=== PATIENT | female | born 1945 | race African-American/Black ===

== ENCOUNTER 2019-07-21 07:25 | Outpatient (RCR) | payer MEDICARE, MEDICAID, SELFPAY ==
--- NOTE | 2019-06-27 10:00 | P.PNWOUND_ITS ---
Wound Care Note Date/Time: 06/17/19 12:30 History: Patient presents from home for wound check. She had a wound vac placed during last hospitalization 1 month ago. Has been undergoing wound vac changes 3 times weekly. Wound history: 05/09/19--Sharp excisional debridement of sacral ulcer measuring 10cm x 6cm and right ischial ulcer measuring 5.5cm x 7cm Wound approximation: No Wound width: Sacrum--9.8cm Ischium--7.5cm Wound length: Sacrum--5.5cm Ischium--5.5cm Wound depth: Sacrum--0.5cm Ischium--1.3cm Drainage: minimal serous Surrounding tissue appearance: healthy Tunneling: none Percentage granulation tissue: 100% Dressings: Wound Vac Assessment and Plan Assessment and plan (1) Decubitus skin ulcer: Qualifiers: Pressure injury location: sacral region Pressure injury stage: stage 4 Qualified Code(s): L89.154 - Pressure ulcer of sacral region, stage 4 Code(s): L89.90 - Pressure ulcer of unspecified site, unspecified stage Status: Acute Assessment and Plan: * Will continue wound vac changes 3 times weekly. This is working well with protecting wounds from fecal or urine contamination. Patient still has very little muscle and these wounds will be very prone to breakdown. Optimizing nutrition and minimizing pressure to susceptible areas will continue to be very important. Will see patient back in 1-2 months (2) Osteomyelitis: Qualifiers: Osteomyelitis location: multiple sites Osteomyelitis type: unspecified type Qualified Code(s): M86.9 - Osteomyelitis, unspecified Code(s): M86.9 - Osteomyelitis, unspecified Status: Acute (3) Dementia, unspecified, with behavioral disturbance: Code(s): F03.91 - Unspecified dementia with behavioral disturbance Status: Acute (4) Multiple sclerosis: Code(s): G35 - Multiple sclerosis Status: Acute
--- NOTE | 2019-08-02 14:41 | WPDWOUNDNOTE ---
Wound Care Note Date/Time: 07/21/19 History: Patient presents from home for wound check. She had a wound vac placed during last hospitalization 2 months ago. Has been undergoing wound vac changes 3 times weekly. Minimal black sponge able to be fit over wounds at this point. Occasional soilage of dressings from stool due to close proximity to anus. Wound history: Wound history: 05/09/19--Sharp excisional debridement of sacral ulcer measuring 10cm x 6cm and right ischial ulcer measuring 5.5cm x 7cm Wound approximation: No Wound width: Sacrum--6cm Ischium--5cm Wound length: Sacrum--9cm Ischium--4.5cm Wound depth: Sacrum--0.2cm Ischium--0.2cm Drainage: Serosanguinous Surrounding tissue appearance: healthy Percentage granulation tissue: 100% Dressings: Silver Gel and Mepilex Assessment and Plan Assessment and plan (1) Decubitus skin ulcer: Qualifiers: Pressure injury location: sacral region Pressure injury stage: stage 4 Qualified Code(s): L89.154 - Pressure ulcer of sacral region, stage 4 Code(s): L89.90 - Pressure ulcer of unspecified site, unspecified stage Status: Acute Assessment and Plan: No longer need to place wound vac due to how shallow wounds have now become. Ordered Silver gel and Mepilex dressings daily. Will follow up with patient in 1 month in wound clinic. (2) Osteomyelitis: Qualifiers: Osteomyelitis location: multiple sites Osteomyelitis type: unspecified type Qualified Code(s): M86.9 - Osteomyelitis, unspecified Code(s): M86.9 - Osteomyelitis, unspecified Status: Acute Review of Systems Review of Systems: All systems reviewed & are unremarkable except as noted in HPI and below Exam Skin: Other: See wound measurements. Wounds are healing with good granulation tissue and no signs of infection.
== END 2019-09-15 23:59 | disposition home or self-care (01) ==
LOC: ANHWOC 07:25
PROVIDERS: PCP Internal Medicine; Visit Provider Surgery
DX: L89.159 Pressure ulcer of sacral region, unspecified stage (principal); L89.319 Pressure ulcer of right buttock, unspecified stage
CPT/HCPCS: 97606; 99213; G0463

== ENCOUNTER 2019-07-21 13:29 | Outpatient (CLI) | payer MEDICARE, MEDICAID, SELFPAY ==
[2019-07-21 13:59] LABS: Basophils Absolute Auto 0.1 K/mm3 (0.0-0.1); Basophils Percent Auto 0.8 % (0.2-1.2); Eosinophils Absolute Auto 0.3 K/mm3 (0-0.3); Eosinophils Percent Auto 3.2 % (0-4.4); Hematocrit 32.9 % (37.0-47.0); Hemoglobin 9.6 g/dL (12.0-15.0); Immature Granulocyte Absolute 0.02 K/mm3 (0.00-0.031); Immature Granulocyte Percent A 0.3 % (0-0.5); Lymphocytes Absolute Auto 1.53 K/mm3 (0.9-3.2); Lymphocytes Percent Auto 19.9 % (18.3-44.2); Mean Corpuscular HGB Conc 29.2 g/dl (32-36); Mean Corpuscular Hemoglobin 26.1 pg (26-34); Mean Corpuscular Volume 89.4 fl (80-100); Mean Platelet Volume 8.7 fl (7.4-10.4); Monocytes Absolute Auto 0.4 K/mm3 (0.1-0.6); Monocytes Percent Auto 4.7 % (2.6-8.5); Neutrophils Absolute Auto 5.5 K/mm3 (1.3-6.7); Neutrophils Percent Auto 71.1 % (45.5-73.1); Platelet Count Result 631 k/mm3 (150-375); Red Blood Count 3.68 M/mm3 (4.2-5.4); White Blood Count 7.7 K/mm3 (4.5-10.0)
[2019-07-21 14:16] LABS: Alanine Aminotransferase 10 U/L (4-35); Albumin Level 3.2 g/dL (3.5-5.1); Alkaline Phosphatase 135 U/L (38-126); Aspartate Amino Transferase 18 U/L (14-36); Bilirubin,Total 0.3 mg/dL (0.2-1.3); Blood Urea Nitrogen 13 mg/dL (7-17); Calcium 9.1 mg/dL (8.4-10.2); Carbon Dioxide 26 mmol/L (22-30); Chloride 110 mmol/L (98-107); Estimated Glomerular Filt Rate > 60; Glucose 136 mg/dL (65-105); Potassium 3.9 mmol/L (3.4-5.0); Sodium 148 mmol/L (137-145)
[2019-07-21 15:57] LABS: Iron 54 ug/dL (37-170)
[2019-07-21 16:07] LABS: Percent Iron Saturation 22 % (20-50)
== END 2019-07-21 13:30 | disposition home or self-care (01) ==
LOC: ANHLAB 13:36
PROVIDERS: PCP Internal Medicine; Visit Provider Internal Medicine
DX: D64.9 Anemia, unspecified (principal); E86.0 Dehydration; I10 Essential (primary) hypertension
CPT/HCPCS: 36415; 80053; 83540; 83550; 85025; 99213; G0463

== ENCOUNTER 2020-04-13 11:14 | Outpatient (NON) | payer MEDICARE, MEDICAID, SELFPAY ==
[2020-04-13 11:49] LABS: Hemoglobin 9.7 g/dL (12.0-15.0); Mean Corpuscular HGB Conc 28.5 g/dl (32-36); Mean Corpuscular Volume 101.5 fl (80-100); Mean Platelet Volume 11.3 fl (7.4-10.4); Platelet Count Result 418 k/mm3 (150-375); Red Blood Count 3.35 M/mm3 (4.2-5.4); Red Cell Distribution Width 18.2 % (11.5-14.5); White Blood Count 9.9 K/mm3 (4.5-10.0)
[2020-04-13 11:52] LABS: Alanine Aminotransferase 15 U/L (4-35); Albumin Level 3.1 g/dL (3.5-5.1); Alkaline Phosphatase 89 U/L (38-126); Anion Gap 7 mmol/L (8-16); Aspartate Amino Transferase 14 U/L (14-36); Bilirubin,Total 0.3 mg/dL (0.2-1.3); Blood Urea Nitrogen 37 mg/dL (7-17); Calcium 8.5 mg/dL (8.4-10.2); Carbon Dioxide 27 mmol/L (22-30); Chloride 144 mmol/L (98-107); Estimated Glomerular Filt Rate > 60; Glucose 116 mg/dL (65-105); Potassium 3.5 mmol/L (3.4-5.0); Sodium 178 mmol/L (137-145)
== END 2020-04-13 11:15 ==
PROVIDERS: PCP Internal Medicine; Visit Provider Internal Medicine
DX: L89.154 Pressure ulcer of sacral region, stage 4 (principal); L89.214 Pressure ulcer of right hip, stage 4; M46.28 Osteomyelitis of vertebra, sacral and sacrococcygeal region; Z46.6 Encounter for fitting and adjustment of urinary device
CPT/HCPCS: 80053; 85027

== ENCOUNTER 2020-04-13 13:37 | Inpatient (IN) | payer MEDICARE, MEDICAID, SELFPAY ==
[2020-04-13] VITALS (13 sets, daily range): BP systolic 86–106; BP diastolic 60–76; PULSE 62–90; RESP 10–24; TEMP 35.7–36.6; O2SAT 98–100; BMI 14.0
--- NOTE | 2020-04-13 14:10 | PC.NURSE ---
LYON CATH IN PLACE AT TIME OF ARRIVAL.
--- NOTE | 2020-04-13 14:20 | ED.GENADULT ---
HPI - General Adult General Chief complaint: Recheck/Abnormal Lab/Rx Stated complaint: ABN LABS Time Seen by Provider: 04/13/20 13:45 Source: patient and old records reviewed Mode of arrival: EMS Limitations: no limitations and clinical condition History of Present Illness HPI narrative: Patient is a 74-year-old female who presents per EMS for evaluation of possible electrolyte abnormality patient on arrival is in the room in no distress is a limited historian with what seems like chronic dementia patient is oriented to self has no complaints Related Data Home Medications Medication Instructions Recorded Confirmed melatonin 3 mg PO HS 04/12/19 03/30/20 Allergies Allergy/AdvReac Type Severity Reaction Status Date / Time No Known Allergies Allergy Verified 12/29/19 11:11 Review of Systems Review of Systems: ROS unobtainable: Yes unobtainable due to medical condition [facility] Past Medical History Medical History (Updated 04/13/20 @ 16:12 by Franco Bailon PA-C) Constipation Dementia History of DVT (deep vein thrombosis) In August 2013, treated with Xarelto. Lumbago Multiple sclerosis Neurogenic bladder Pulmonary nodule 1.9 centimeter left lower lobe lung mass noted on imaging in January 2014. Subsequent chest CT failed to demonstrate a nodule. Spinal stenosis Surgical History Surgical History History of hysterectomy Tubal ligation status Family History Family History Daughter Hypertension Other Unknown family medical history Social History Social History Social History: The patient lives in [place] with her daughter. Her daughter, Fior Kaye, is her surrogate decision maker. The patient is listed as a full code. Her primary care provider is Dr. Tray Carlton. She denies alcohol, tobacco, and drug use. Smoking status: Never smoker Alcohol intake: never Substance use: never Substance use type: does not use Gender identity (if verbalized by the patient): Female Spiritual care concerns: No Agree to blood products: Yes Exam Narrative: Exam Narrative: GENERAL: Chronically ill-appearing, thin, and in no acute distress. HEAD: Normocephalic, atraumatic. EYES: PERRLA and EOMI. ENT: Nares clear, no rhinorrhea or epistaxis. Mucous membranes moist. NECK: Supple. No adenopathy or masses. CHEST: Clear to auscultation. No respiratory distress. No wheezes rales or rhonchi HEART: Regular rate and rhythm. No murmur heard. Normal peripheral pulses. ABDOMEN: Soft, nontender, nondistended EXTREMITIES: Normal range of motion. No edema. SKIN: Warm, dry, no rash. NEURO: No focal deficits. Alert and oriented to self PSYCH: Normal mood and affect. Course Course Emergency Course: Patient found to have hypernatremia secondary to dehydration most likely will be brought into the hospital for correction of this electrolyte abnormality patient hemodynamically stable at this time in the room in no distress resting comfortably Consultations Consultation #1: Spoke with hospitalist who is agreed to accept the patient Date: 04/13/20 Time: 16:12 Vital Signs Vital signs: Vital Signs Temperature 97.6 F 04/13/20 13:36 Pulse Rate 90 04/13/20 13:36 Respiratory Rate 16 04/13/20 13:36 Blood Pressure 99/69 L 04/13/20 13:36 Pulse Oximetry 100 04/13/20 13:36 Temperature 97.6 F 04/13/20 13:36 Pulse Rate 67 04/13/20 15:46 Respiratory Rate 11 L 04/13/20 15:46 Blood Pressure 94/71 L 04/13/20 15:46 Pulse Oximetry 99 04/13/20 15:08 Medical Decision Making [facility] Narrative Medical decision making narrative: Patient with electrolyte abnormality in the room in no distress hydration has began patient will be placed on med telemetry floor brought into the hospital felt appropriate for patient therapy Vit
[2020-04-13 14:22] LABS: Basophils Absolute Auto 0.1 K/mm3 (0.0-0.1); Basophils Percent Auto 0.7 % (0.2-1.2); Eosinophils Absolute Auto 0.2 K/mm3 (0-0.3); Eosinophils Percent Auto 2.1 % (0-4.4); Hemoglobin 10.3 g/dL (12.0-15.0); Immature Granulocyte Absolute 0.03 K/mm3 (0.00-0.031); Immature Granulocyte Percent A 0.3 % (0-0.5); Lymphocytes Absolute Auto 1.67 K/mm3 (0.9-3.2); Lymphocytes Percent Auto 17.7 % (18.3-44.2); Mean Corpuscular HGB Conc 28.6 g/dl (32-36); Mean Corpuscular Hemoglobin 29.2 pg (26-34); Mean Platelet Volume 11.5 fl (7.4-10.4); Monocytes Absolute Auto 0.4 K/mm3 (0.1-0.6); Monocytes Percent Auto 4.1 % (2.6-8.5); Neutrophils Absolute Auto 7.1 K/mm3 (1.3-6.7); Neutrophils Percent Auto 75.1 % (45.5-73.1); Nucleated Red Blood Cells Perc 0.2 % (0.0-0.2); Platelet Count Result 410 k/mm3 (150-375); Red Blood Count 3.53 M/mm3 (4.2-5.4); Red Cell Distribution Width 18.2 % (11.5-14.5); White Blood Count 9.5 K/mm3 (4.5-10.0)
[2020-04-13 14:25] LABS: Add Urine Microscopic? YES; Appearance Urine Turbid (Clear); Bilirubin Urine Negative (Negative); Blood Urine Negative (Negative); Color Urine Yellow (Yellow); Glucose Urine UA Negative (Negative); Ketones Urine Trace mg/dL (Negative); Leukocyte Esterase Ur 1+ LEU/UL (Negative); Nitrate Urine Negative (Negative); Protein Urine 3+ mg/dL (Negative); RBC Urine 0-2 /hpf (0-2); Specific Grav Ur 1.027 (1.001-1.035); Urobilinogen Urine Negative mg/dL (<2.0); WBC Urine 0-3 /hpf
[2020-04-13 14:36] LABS: Magnesium 3.7 mg/dL (1.6-2.3); Phosphorus 4.1 mg/dL (2.5-4.5)
--- NOTE | 2020-04-13 14:45 | ECG_ITS ---
Measurements Intervals [place] Rate: 86 P: 57 VA: 115 QRS: 15 QRSD: 76 T: 34 QT: 374 QTc: 448 Interpretive Statements SINUS RHYTHM WITH SHORT VA INTERVAL NONSPECIFIC ST & T-WAVE ABNORMALITY- ANTEROLAT/INF LEADS BORDERLINE ECG Electronically Signed On 04-13-2020 15:49:22 FRIT [employer]ATER by Danny Roa D.O.
[2020-04-13 14:49] LABS: Alanine Aminotransferase 16 U/L (4-35); Albumin Level 3.3 g/dL (3.5-5.1); Alkaline Phosphatase 86 U/L (38-126); Anion Gap 5 mmol/L (8-16); Aspartate Amino Transferase 20 U/L (14-36); Bilirubin,Total 0.4 mg/dL (0.2-1.3); Blood Urea Nitrogen 40 mg/dL (7-17); Calcium 8.8 mg/dL (8.4-10.2); Carbon Dioxide 25 mmol/L (22-30); Chloride 145 mmol/L (98-107); Estimated CRCL calculation 37 ml/min; Estimated Glomerular Filt Rate > 60; Glucose 112 mg/dL (65-105); Potassium 4.1 mmol/L (3.4-5.0); Sodium 175 mmol/L (137-145)
--- NOTE | 2020-04-13 15:23 | PC.NURSE ---
SPOKE WITH RADHA BORGES ABOUT SWITCHING FLUIDS TO HALF NORMAL SALINE DUE TO PT CRITICAL SODIUM LEVEL, RADHA BORGES STATES THAT HE STILL WANTS THE NORMAL SALINE 500MG BOLUS ADMIN AND IF THE HOSPITALIST WANTS IT SWITCHED THEY CAN DO IT LATER.
[2020-04-13] MEDS: SODIUM CHLORIDE 0.9% IV 500 ML 999 ML IV CONT (15:24)
--- NOTE | 2020-04-13 16:46 | PC.NURSE ---
SPOKE WITH PHARMACY ABOUT SALINE DRIP, JACKIE STATES HE WILL TUBE IT UP.
[2020-04-13] MEDS: DEXTROSE 5%/0.45% SOD CHL 1,000 ML 100 ML IV CONT (16:56)
--- NOTE | 2020-04-13 18:17 | ADMGEN ---
This patient, Jessica Ann, was admitted to Medical Room 342-01. Patient/family oriented to hospital policies and general routines including ID bracelet, bed and alarms, visiting hours, pain management, procedures, bathroom and other care routines, personal items, smoking policy, room service/diet, and visiting hours. Information on how to activate the Rapid Response Team has been discussed. Patient/Family are encouraged to report perceived risks to care and to ask questions if they do not understand what they are told or what they should do.
[2020-04-13] MEDS: FAMOTIDINE 20 MG/2 ML VIAL IV PUSH (20:41)
--- NOTE | 2020-04-13 21:47 | PM.IMHP ---
H&P: HPI History of Present Illness Date/Time: 04/13/20 21:47 Chief complaint: hypernatremia/dehydration Narrative: Jessica Ann is a 74 year old female who lives at home with her daughter and has home health. The patient was brought into the emergency room via EMS for possibility of electrolyte abnormalities. The patient has appearance of chronic dementia and is orientated to herself. No complaints at this time. Patient's sodium level was 178 and then redrawn after his IV bolus and it was 175. The patient appears to be dry and dehydrated. Her glucose is 112 and creatinine was normal. Patient was just given 1 bag of IV fluids. And then changed to D5 half normal saline. Patient was admitted to inpatient date of service 04/13/2020 Review of Systems Review of Systems: ROS unobtainable: Yes unobtainable due to mental status Constitutional: Constitutional: Reports as per HPI and Reports no additional constitutional complaints Eyes: Eyes: Reports as per HPI and Reports no additional eye complaints ENT: Reports system reviewed and no additional complaints, except as documented and Reports Normal hearing present Cardiovascular: Cardiovascular: Reports no additional cardiovascular complaints Respiratory: Respiratory: Reports no additional respiratory complaints and Reports no additional respiratory complaints Gastrointestinal: Gastrointestinal: Reports as per HPI and Reports no additional gastrointestinal complaints Musculoskeletal: Musculoskeletal: Reports no additional musculoskeletal complaints Integumentary/Breasts: Skin/Breast: Reports system reviewed and no additional complaints, except as docu and Reports as per HPI Neurologic: Reports system reviewed and no additional complaints, except as documented, Reports as per HPI and Reports Normal hearing present Psychiatric: Psychiatric: Reports no additional psychiatric complaints and Reports as per HPI Endocrine: Endocrine: Reports no additional endocrine complaints Hematologic/Lymphatic: Hematologic/Lymphatic: Reports no additional hematologic/lymphatic complaints Allergic/Immunologic: Allergic/Immunologic: Reports no additional allergic/immunologic complaints [facility] Past Medical History Medical History Constipation Dementia History of DVT (deep vein thrombosis) In August 2013, treated with Xarelto. Lumbago Multiple sclerosis Neurogenic bladder Pulmonary nodule 1.9 centimeter left lower lobe lung mass noted on imaging in January 2014. Subsequent chest CT failed to demonstrate a nodule. Spinal stenosis Surgical History Surgical History History of hysterectomy Tubal ligation status Family History Family History Daughter Hypertension Social History Social History Social History: The patient lives in [place] with her daughter. Her daughter, Fior Kaye, is her surrogate decision maker. The patient is listed as a full code. Her primary care provider is Dr. Tray Carlton. She denies alcohol, tobacco, and drug use. Smoking status: Never smoker Alcohol intake: never Substance use: never Substance use type: does not use Gender identity (if verbalized by the patient): Female Spiritual care concerns: No Agree to blood products: Yes Meds Home Medications and Allergies Home Medications Medication Instructions Recorded Confirmed Type melatonin 5 mg PO HS 04/12/19 04/13/20 History mirtazapine 15 mg PO HS 04/13/20 04/13/20 History polyethylene glycol 3350 [Miralax] 17 g PO PRN PRN 04/13/20 04/13/20 History Allergies Allergy/AdvReac Type Severity Reaction Status Date / Time No Known Allergies Allergy Verified 04/13/20 18:42 Vital Signs Vital Signs - 24 hr 04/13/20 13:36 04/13/20 14:20 04/13/20 15:0
[2020-04-13 23:55] LABS: Potassium Urine Random 34.7 meq/L
[2020-04-14] VITALS (11 sets, daily range): BP systolic 82–105; BP diastolic 56–60; PULSE 68–109; RESP 14–16; TEMP 36.3–36.6; O2SAT 100
[2020-04-14 00:20] LABS: Sodium Urine Random 63 meq/L
[2020-04-14] MEDS: MIRTAZAPINE 15 MG TABLET PO ×2 (00:23→20:50)
[2020-04-14] MEDS: MELATONIN 5 MG TABLET PO ×2 (00:23→20:50)
[2020-04-14 01:28] LABS: Anion Gap 7 mmol/L (8-16); Blood Urea Nitrogen 35 mg/dL (7-17); Carbon Dioxide 24 mmol/L (22-30); Chloride 138 mmol/L (98-107); Estimated CRCL calculation 39 ml/min; Estimated Glomerular Filt Rate > 60; Glucose 254 mg/dL (65-105); Potassium 3.1 mmol/L (3.4-5.0); Sodium 169 mmol/L (137-145)
[2020-04-14] MEDS: DEXTROSE 5%/0.45% SOD CHL 1,000 ML 100 ML IV CONT (03:10)
[2020-04-14 06:50] LABS: Basophils Absolute Auto 0.1 K/mm3 (0.0-0.1); Basophils Percent Auto 0.7 % (0.2-1.2); Eosinophils Absolute Auto 0.3 K/mm3 (0-0.3); Eosinophils Percent Auto 3.2 % (0-4.4); Hemoglobin 9.5 g/dL (12.0-15.0); Immature Granulocyte Absolute 0.03 K/mm3 (0.00-0.031); Immature Granulocyte Percent A 0.4 % (0-0.5); Lymphocytes Absolute Auto 1.48 K/mm3 (0.9-3.2); Lymphocytes Percent Auto 18.5 % (18.3-44.2); Mean Corpuscular HGB Conc 27.9 g/dl (32-36); Mean Corpuscular Volume 103.7 fl (80-100); Mean Platelet Volume 11.4 fl (7.4-10.4); Monocytes Absolute Auto 0.3 K/mm3 (0.1-0.6); Monocytes Percent Auto 4.1 % (2.6-8.5); Neutrophils Absolute Auto 5.9 K/mm3 (1.3-6.7); Neutrophils Percent Auto 73.1 % (45.5-73.1); Nucleated Red Blood Cells Perc 0.4 % (0.0-0.2); Platelet Count Result 351 k/mm3 (150-375); Red Blood Count 3.28 M/mm3 (4.2-5.4); Red Cell Distribution Width 17.8 % (11.5-14.5)
[2020-04-14 07:16] LABS: Anion Gap 7 mmol/L (8-16); Blood Urea Nitrogen 32 mg/dL (7-17); Carbon Dioxide 22 mmol/L (22-30); Chloride 138 mmol/L (98-107); Estimated CRCL calculation 39 ml/min; Estimated Glomerular Filt Rate > 60; Glucose 110 mg/dL (65-105); Potassium 3.2 mmol/L (3.4-5.0); Sodium 167 mmol/L (137-145)
[2020-04-14] MEDS: FAMOTIDINE 20 MG/2 ML VIAL IV PUSH ×2 (08:18→20:50)
[2020-04-14 08:49] LABS: Anisocytosis 1+ (NORMAL); Hypochromasia 1+ (NORMAL); Platelet Estimate Adequate (Adequate)
[2020-04-14 10:11] LABS: Sodium 161 mmol/L (137-145)
[2020-04-14] MEDS: SODIUM CHLORIDE 0.9% IV 1,000 ML 70 ML IV CONT (11:01)
--- NOTE | 2020-04-14 12:00 | PCSTNOTE ---
Please refer to the Bedside Swallow Evaluation in the EMR. Please note, silent aspiration cannot be ruled out at bedside.
--- NOTE | 2020-04-14 13:03 | PM.IMPN ---
Progress Note: A&P Assessment and Plan (1) Hypernatremia: Code(s): E87.0 - Hyperosmolality and hypernatremia Status: Acute Assessment and Plan: Sodium at presentation was significantly elevated at 175. Suspect this is secondary to acute dehydration as patient appeared very dry upon presentation. She was given a 1 L fluid bolus of normal saline in the ED. She was then switched to D5 0.45 normal saline and sodium declined to 167. Sodium is declining at slightly accelerated rate but at this time, will not reverse to increase sodium. Transition to normal saline at 70 ml/hr Monitor sodium q4h to ensure appropriate rate of correction Consider nephrology consultation based on sodium results following adjustment of fluids Urine osmolality is pending (2) Severe protein-calorie malnutrition: Code(s): E43 - Unspecified severe protein-calorie malnutrition Status: Acute Assessment and Plan: Patient is thin and frail. BMI is 14. Nursing staff noted that patient was coughing with foods and liquids. Bedside swallow study performed today with recommendation to continue thin liquids and minced and moist diet. She likely has poor oral intake secondary to her dementia. Continue with minced and moist diet Dietary supplements Continue mirtazapine (3) Dehydration: Code(s): E86.0 - Dehydration Status: Acute Assessment and Plan: Secondary to poor oral intake as above, resulting in hypernatremia. Continue with gentle IV fluid hydration as above, monitoring sodium closely. (4) Decubitus ulcer: Qualifiers: Pressure injury location: buttock Pressure injury stage: unspecified pressure injury stage Laterality: unspecified laterality Qualified Code(s): L89.309 - Pressure ulcer of unspecified buttock, unspecified stage Code(s): L89.90 - Pressure ulcer of unspecified site, unspecified stage Status: Acute Assessment and Plan: Patient is bed-bound/wheelchair bound with poor nutrition. Wound care consult is appreciated (5) Dementia, unspecified, with behavioral disturbance: Code(s): F03.91 - Unspecified dementia with behavioral disturbance Status: Acute Assessment and Plan: Patient is oriented to self only. Appears to be at her baseline. She is pleasantly confused. (6) Multiple sclerosis: Code(s): G35 - Multiple sclerosis Status: Acute Assessment and Plan: With associated neurogenic bladder and chronic indwelling hatfield catheter. She is not on any medications for MS. Subjective Date/time seen: 04/14/20 13:03 Interval history: Date of service: 04/14/2020 Jessica Ann is a 74 year old female with a history of dementia and multiple sclerosis who is seen in follow up for hyponatremia. She is feeling well today. She has no complaints at this time. Her daughter is with her at the bedside. Her appetite has been good. She has been sleeping well. She has a chronic indwelling Hatfield and has no issues. She denies shortness of breath, cough, nausea, vomiting, or abdominal pain. No muscle cramps or body aches. She has no additional concerns. Review of Systems Review of Systems: Narrative: Limited ROS due to patient's dementia with pertinent positives and negatives as per HPI. Exam Narrative: Exam Narrative: Ms. Ann is a thin, frail 74-year-old female who is lying supine in bed. She appears comfortable and is in NARD. HR 69, BP 105/60, RR 14, T 97.4?, 100% on room air Neuro: awake, alert and oriented x1 (states name and , unable to state location, year, or details of hospitalization), speech slightly garbled, no focal neuro deficits noted HEENMT: normocephalic, atraumatic, EOMI, sclerae anicteric, moist oral mucosa, tongue midline and protruding, nares patent Neck: supple, no lymphadenopathy Respiratory: clear to auscultation bilaterally, nonlabored breathing Cardio: regular rate, r
[2020-04-14] MEDS: POTASSIUM CHLORIDE 20 MEQ PACKET (FOR LIQUID) PO (17:36)
[2020-04-14 17:47] LABS: Sodium 158 mmol/L (137-145)
[2020-04-15] VITALS (9 sets, daily range): BP systolic 90–100; BP diastolic 52–70; PULSE 61–87; RESP 12–16; TEMP 36.2–36.9; O2SAT 100
[2020-04-15] MEDS: SODIUM CHLORIDE 0.9% IV 1,000 ML 70 ML IV CONT (01:38)
[2020-04-15 06:17] LABS: Hemoglobin 7.4 g/dL (12.0-15.0); Mean Corpuscular HGB Conc 29.6 g/dl (32-36); Mean Corpuscular Hemoglobin 28.8 pg (26-34); Mean Corpuscular Volume 97.3 fl (80-100); Mean Platelet Volume 11.5 fl (7.4-10.4); Platelet Count Result 309 k/mm3 (150-375); Red Blood Count 2.57 M/mm3 (4.2-5.4); Red Cell Distribution Width 16.9 % (11.5-14.5); White Blood Count 6.9 K/mm3 (4.5-10.0)
[2020-04-15 06:32] LABS: Anion Gap 5 mmol/L (8-16); Blood Urea Nitrogen 24 mg/dL (7-17); Calcium 7.7 mg/dL (8.4-10.2); Carbon Dioxide 23 mmol/L (22-30); Chloride 130 mmol/L (98-107); Estimated CRCL calculation 39 ml/min; Estimated Glomerular Filt Rate > 60; Glucose 96 mg/dL (65-105); Potassium 3.2 mmol/L (3.4-5.0); Sodium 158 mmol/L (137-145)
[2020-04-15] MEDS: SODIUM CHLORIDE 0.45% 1,000 ML 70 ML IV CONT ×2 (08:11→22:37)
[2020-04-15] MEDS: FAMOTIDINE 20 MG/2 ML VIAL IV PUSH ×2 (08:13→20:25)
[2020-04-15 09:42] LABS: Iron 34 ug/dL (37-170)
[2020-04-15 09:51] LABS: Percent Iron Saturation 15 % (20-50)
--- NOTE | 2020-04-15 10:32 | PM.IMPN ---
Progress Note: A&P Assessment and Plan (1) Hypernatremia: Code(s): E87.0 - Hyperosmolality and hypernatremia Status: Acute Assessment and Plan: Sodium at presentation was significantly elevated at 175. Suspect this is secondary to acute dehydration as patient appeared very dry upon presentation. She was given a 1 L fluid bolus of normal saline in the ED. She was then switched to D5 0.45 normal saline and sodium declined to 167. Given slightly accelerated rate of decline, she was transitioned back to normal saline. Sodium this morning has remained stable at 158. Transition to 0.45 normal saline at 70 ml/hr Monitor sodium closely to ensure appropriate rate of correction. Urine osmolality is pending (2) Dehydration: Code(s): E86.0 - Dehydration Status: Acute Assessment and Plan: Secondary to poor oral intake, resulting in hypernatremia. Continue with gentle IV fluid hydration as above, monitoring sodium closely. (3) Hypokalemia: Code(s): E87.6 - Hypokalemia Status: Acute Assessment and Plan: Potassium mildly low at 3.2, likely secondary to poor oral intake as noted above. Supplement with liquid KCl. Continue to monitor potassium closely and replace as needed. (4) Dementia, unspecified, with behavioral disturbance: Code(s): F03.91 - Unspecified dementia with behavioral disturbance Status: Acute Assessment and Plan: Patient is oriented to self only. Appears to be at her baseline. She is pleasantly confused. (5) Multiple sclerosis: Code(s): G35 - Multiple sclerosis Status: Acute Assessment and Plan: With associated neurogenic bladder and chronic indwelling hatfield catheter. She is not on any medications for MS. (6) Anemia: Qualifiers: Anemia type: unspecified type Qualified Code(s): D64.9 - Anemia, unspecified Code(s): D64.9 - Anemia, unspecified Status: Acute Assessment and Plan: Hgb declined from 9.5 yesterday to 7.4 today. On review of prior records, anemia appears chronic. Suspect initial H&H labs were hemoconcentrated secondary to severe dehydration and decline in H&H is dilutional. No evidence of active bleeding and VSS. Monitor H&H closely. Transfuse as needed with Hgb threshold <7.0 Check IFOB, iron panel, B12, and folate (7) At risk for aspiration: Code(s): Z91.89 - Other specified personal risk factors, not elsewhere classified Status: Acute Assessment and Plan: Nursing staff noted that patient was coughing with foods and liquids. Bedside swallow study performed 04/14 with recommendation to continue thin liquids and minced and moist diet. She did not demonstrate any evidence of aspiration and has no history of aspiration pneumonia. Patient's daughter was unhappy with minced and moist diet as she felt her mother was being made to eat baby food. Continue minced and moist diet with thin liquids. May add in soft and bite sized with appropriate supervision and cutting of food to appropriate size per family wishes. Aspiration precautions in place Assistance with meals (8) Severe protein-calorie malnutrition: Code(s): E43 - Unspecified severe protein-calorie malnutrition Status: Acute Assessment and Plan: Patient is thin and frail. BMI is 14. She likely has poor oral intake secondary to her dementia. Dietary supplements Continue mirtazapine Encourage PO intake (9) Decubitus ulcer: Qualifiers: Pressure injury location: buttock Pressure injury stage: unspecified pressure injury stage Laterality: unspecified laterality Qualified Code(s): L89.309 - Pressure ulcer of unspecified buttock, unspecified stage Code(s): L89.90 - Pressure ulcer of unspecified site, unspecified stage Status: Acute Assessment and Plan: Patient is bed-bound/wheelchair bound with poor nutrition.
[2020-04-15] MEDS: POTASSIUM CHLORIDE 20 MEQ PACKET (FOR LIQUID) 40 MEQ PO (16:18)
[2020-04-15] MEDS: MIRTAZAPINE 15 MG TABLET PO (20:25)
[2020-04-15] MEDS: MELATONIN 5 MG TABLET PO (20:25)
[2020-04-16] VITALS (8 sets, daily range): BP systolic 92–97; BP diastolic 61–62; PULSE 66–88; RESP 14–18; TEMP 36.4–36.8; O2SAT 100; BMI 14.0
[2020-04-16 05:59] LABS: Basophils Percent Auto 0.6 % (0.2-1.2); Eosinophils Absolute Auto 0.5 K/mm3 (0-0.3); Eosinophils Percent Auto 6.8 % (0-4.4); Hematocrit 28.4 % (37.0-47.0); Hemoglobin 8.4 g/dL (12.0-15.0); Immature Granulocyte Absolute 0.03 K/mm3 (0.00-0.031); Immature Granulocyte Percent A 0.4 % (0-0.5); Lymphocytes Absolute Auto 1.53 K/mm3 (0.9-3.2); Lymphocytes Percent Auto 21.2 % (18.3-44.2); Mean Corpuscular HGB Conc 29.6 g/dl (32-36); Mean Corpuscular Hemoglobin 28.5 pg (26-34); Mean Corpuscular Volume 96.3 fl (80-100); Mean Platelet Volume 11.5 fl (7.4-10.4); Monocytes Absolute Auto 0.3 K/mm3 (0.1-0.6); Monocytes Percent Auto 4.3 % (2.6-8.5); Neutrophils Absolute Auto 4.8 K/mm3 (1.3-6.7); Neutrophils Percent Auto 66.7 % (45.5-73.1); Nucleated Red Blood Cells Perc 0.3 % (0.0-0.2); Platelet Count Result 346 k/mm3 (150-375); Red Blood Count 2.95 M/mm3 (4.2-5.4); Red Cell Distribution Width 16.3 % (11.5-14.5); White Blood Count 7.2 K/mm3 (4.5-10.0)
[2020-04-16 06:07] LABS: Anion Gap 5 mmol/L (8-16); Blood Urea Nitrogen 22 mg/dL (7-17); Calcium 7.7 mg/dL (8.4-10.2); Carbon Dioxide 23 mmol/L (22-30); Chloride 124 mmol/L (98-107); Estimated CRCL calculation 35 ml/min; Estimated Glomerular Filt Rate > 60; Glucose 88 mg/dL (65-105); Potassium 3.7 mmol/L (3.4-5.0); Sodium 152 mmol/L (137-145)
[2020-04-16 08:06] LABS: Anisocytosis 1+ (NORMAL); Hypochromasia 1+ (NORMAL); Macrocytosis 1+ (NORMAL); Platelet Estimate Adequate (Adequate)
[2020-04-16] MEDS: FAMOTIDINE 20 MG/2 ML VIAL IV PUSH ×2 (08:27→20:09)
[2020-04-16 10:58] LABS: IFOB Positive Control Positive; Immunochemical Fecal Occult Bl Negative (N)
[2020-04-16] MEDS: SODIUM CHLORIDE 0.45% 1,000 ML 70 ML IV CONT (12:41)
--- NOTE | 2020-04-16 17:41 | PM.IMPN ---
Progress Note: A&P Assessment and Plan (1) Hypernatremia: Code(s): E87.0 - Hyperosmolality and hypernatremia Status: Acute Assessment and Plan: Sodium at presentation was significantly elevated at 175. Suspect this is secondary to acute dehydration as patient appeared very dry upon presentation. She was given a 1 L fluid bolus of normal saline in the ED. She was then switched to D5 0.45 normal saline and sodium declined to 167. Given slightly accelerated rate of decline, she was transitioned back to normal saline. Sodium this morning has remained stable at 152. Continue 0.45 normal saline at 70 ml/hr Monitor sodium closely to ensure appropriate rate of correction. Urine osmolality is pending (2) Dehydration: Code(s): E86.0 - Dehydration Status: Acute Assessment and Plan: Secondary to poor oral intake, resulting in hypernatremia. Continue with gentle IV fluid hydration as above, monitoring sodium closely. (3) Hypokalemia: Code(s): E87.6 - Hypokalemia Status: Acute Assessment and Plan: Potassium was mildly low, likely secondary to poor oral intake as noted above. Potassium stable at 3.7 today. Continue to monitor potassium closely and replace as needed. (4) Dementia, unspecified, with behavioral disturbance: Code(s): F03.91 - Unspecified dementia with behavioral disturbance Status: Acute Assessment and Plan: Patient is oriented to self only. Appears to be at her baseline. She is pleasantly confused. (5) Multiple sclerosis: Code(s): G35 - Multiple sclerosis Status: Acute Assessment and Plan: With associated neurogenic bladder and chronic indwelling hatfield catheter. She is not on any medications for MS. (6) Anemia: Qualifiers: Anemia type: unspecified type Qualified Code(s): D64.9 - Anemia, unspecified Code(s): D64.9 - Anemia, unspecified Status: Acute Assessment and Plan: On review of prior records, anemia appears chronic. She had a sharp decline in H&H on 04/15. Suspect initial H&H labs were hemoconcentrated secondary to severe dehydration and decline in H&H is dilutional. No evidence of active bleeding and VSS. H&H improved today. IFOB negative. Labs consistent with anemia of chronic disease. B12 and folate wnl. Monitor H&H closely. Transfuse as needed with Hgb threshold <7.0 (7) At risk for aspiration: Code(s): Z91.89 - Other specified personal risk factors, not elsewhere classified Status: Acute Assessment and Plan: Nursing staff noted that patient was coughing with foods and liquids. Bedside swallow study performed 04/14 with recommendation to continue thin liquids and minced and moist diet. She did not demonstrate any evidence of aspiration and has no history of aspiration pneumonia. Patient's daughter was unhappy with minced and moist diet as she felt her mother was being made to eat baby food. Continue minced and moist diet with thin liquids. May add in soft and bite sized with appropriate supervision and cutting of food to appropriate size per family wishes. Aspiration precautions in place Assistance with meals (8) Severe protein-calorie malnutrition: Code(s): E43 - Unspecified severe protein-calorie malnutrition Status: Acute Assessment and Plan: Patient is thin and frail. BMI is 14. She has poor oral intake secondary to her dementia. Dietary supplements Continue mirtazapine Encourage PO intake (9) Decubitus ulcer: Qualifiers: Pressure injury location: buttock Pressure injury stage: unspecified pressure injury stage Laterality: unspecified laterality Qualified Code(s): L89.309 - Pressure ulcer of unspecified buttock, unspecified stage Code(s): L89.90 - Pressure ulcer of unspecified site, unspecified stage Status: Acute Assessment and Plan: Patient is bed-bound/whee
[2020-04-16] MEDS: MELATONIN 5 MG TABLET PO (20:09)
[2020-04-16] MEDS: MIRTAZAPINE 15 MG TABLET PO (20:09)
[2020-04-17] VITALS (7 sets, daily range): BP systolic 90–96; BP diastolic 60; PULSE 63–100; RESP 14–18; TEMP 36.6; O2SAT 97–100
[2020-04-17] MEDS: SODIUM CHLORIDE 0.45% 1,000 ML 70 ML IV CONT (02:31)
[2020-04-17 05:57] LABS: Hematocrit 28.7 % (37.0-47.0); Hemoglobin 8.9 g/dL (12.0-15.0); Mean Corpuscular Hemoglobin 29.6 pg (26-34); Mean Corpuscular Volume 95.3 fl (80-100); Mean Platelet Volume 11.2 fl (7.4-10.4); Platelet Count Result 322 k/mm3 (150-375); Red Blood Count 3.01 M/mm3 (4.2-5.4); Red Cell Distribution Width 16.2 % (11.5-14.5); White Blood Count 12.4 K/mm3 (4.5-10.0)
[2020-04-17 06:11] LABS: Anion Gap 4 mmol/L (8-16); Blood Urea Nitrogen 13 mg/dL (7-17); Calcium 7.8 mg/dL (8.4-10.2); Carbon Dioxide 23 mmol/L (22-30); Chloride 118 mmol/L (98-107); Estimated CRCL calculation 45 ml/min; Estimated Glomerular Filt Rate > 60; Glucose 80 mg/dL (65-105); Potassium 3.5 mmol/L (3.4-5.0); Sodium 145 mmol/L (137-145)
[2020-04-17] MEDS: FAMOTIDINE 20 MG/2 ML VIAL IV PUSH (08:23)
--- NOTE | 2020-04-18 06:52 | PM.DS ---
DS: Admitting Diagnosis Admitting Diagnosis Admitting Diagnosis: hypernatremia/dehydration DS: Discharge Diagnosis Discharge Diagnosis (1) Hypernatremia: Code(s): E87.0 - Hyperosmolality and hypernatremia Status: Acute Assessment and Plan: Sodium at presentation was significantly elevated at 175. Suspect this was secondary to acute dehydration as patient appeared very dry upon presentation. She was given a 1 L fluid bolus of normal saline in the ED. She was then switched to D5 0.45 normal saline. Given slightly accelerated rate of decline, she was transitioned back to normal saline briefly. Sodium levels then decreased at appropriate rate and 0.45 normal saline was resumed until sodium returned to normal range. At discharge, sodium was 145. Discussed importance of adequate hydration. (2) Dehydration: Code(s): E86.0 - Dehydration Status: Acute Assessment and Plan: Secondary to poor oral intake, resulting in hypernatremia. See above. (3) Hypokalemia: Code(s): E87.6 - Hypokalemia Status: Acute Assessment and Plan: Potassium mildly low initially, likely secondary to poor oral intake as noted above. Potassium was monitored closely and replaced as needed. Resolved. (4) Dementia, unspecified, with behavioral disturbance: Code(s): F03.91 - Unspecified dementia with behavioral disturbance Status: Acute Assessment and Plan: Patient is oriented to self only. Appears to be at her baseline. She is pleasantly confused. (5) Multiple sclerosis: Code(s): G35 - Multiple sclerosis Status: Acute Assessment and Plan: With associated neurogenic bladder and chronic indwelling hatfield catheter. She is not on any medications for MS. (6) Anemia: Qualifiers: Anemia type: unspecified type Qualified Code(s): D64.9 - Anemia, unspecified Code(s): D64.9 - Anemia, unspecified Status: Acute Assessment and Plan: On review of prior records, anemia appears chronic. She had a sharp decline in H&H on 04/15. Suspect initial H&H labs were hemoconcentrated secondary to severe dehydration and decline in H&H was dilutional. No evidence of active bleeding and VSS. IFOB negative. Labs consistent with anemia of chronic disease. B12 and folate wnl. H&H returned to what appears to be her baseline. (7) At risk for aspiration: Code(s): Z91.89 - Other specified personal risk factors, not elsewhere classified Status: Acute Assessment and Plan: Nursing staff noted that patient was coughing with foods and liquids. Bedside swallow study performed 04/14 with recommendation to continue thin liquids and minced and moist diet. She did not demonstrate any evidence of aspiration and has no history of aspiration pneumonia. Patient's daughter was unhappy with minced and moist diet as she felt her mother was being made to eat baby food, therefore soft and bite-sized diet was incorporated with appropriate supervision. Aspiration precautions were implented. Discussed with patient's daughter dietary recommendations to continue at home. (8) Severe protein-calorie malnutrition: Code(s): E43 - Unspecified severe protein-calorie malnutrition Status: Acute Assessment and Plan: Patient is thin and frail. BMI is 14. She has poor oral intake secondary to her dementia. Dietary supplements provided. Continue mirtazapine (9) Decubitus ulcer: Qualifiers: Pressure injury location: buttock Pressure injury stage: unspecified pressure injury stage Laterality: unspecified laterality Qualified Code(s): L89.309 - Pressure ulcer of unspecified buttock, unspecified stage Code(s): L89.90 - Pressure ulcer of unspecified site, unspecified stage Status: Acute Assessment and Plan: Patient is bed-bound/wheelchair bound with poor nutrition. Sacral ulcer was evaluated by the wound team. No signs o
[2020-04-18 07:45] LABS: Osmolality, Urine 933 mOsm/kg (50-1200)
== END 2020-04-17 17:50 | disposition home health service (06) | DRG 640 ==
LOC: ANHED 16:12 → ANH3MED 04-14 01:43
PROVIDERS: Emergency Medicine Emergency Medical Services; Nurse Practitioner; Admitting Provider Family Medicine; Emergency Provider Emergency Medicine; PCP Internal Medicine; Visit Provider Physician Assistant
DX: E87.0 Hyperosmolality and hypernatremia (principal); L89.314 Pressure ulcer of right buttock, stage 4; L89.324 Pressure ulcer of left buttock, stage 4; E43 Unspecified severe protein-calorie malnutrition; F03.91 Unspecified dementia, unspecified severity, with behavioral disturbance; Z68.1 Body mass index [BMI] 19.9 or less, adult; L89.152 Pressure ulcer of sacral region, stage 2; Z23 Encounter for immunization; E86.0 Dehydration; E87.6 Hypokalemia; G35 Multiple sclerosis; D63.8 Anemia in other chronic diseases classified elsewhere; D72.829 Elevated white blood cell count, unspecified; Z86.718 Personal history of other venous thrombosis and embolism; N31.9 Neuromuscular dysfunction of bladder, unspecified; M48.00 Spinal stenosis, site unspecified; L89.319 Pressure ulcer of right buttock, unspecified stage; Z99.3 Dependence on wheelchair
CPT/HCPCS: 36415; 80048; 80053; 81001; 82274; 82607; 82728; 82746; 83540; 83550; 83735; 83935; 84100; 84133; 84295; 84300; 85025; 85027; 90471; 90653; 92610; 93005; 96360; 99285; A9270; G0008; G0378; J7030; J7040

== ENCOUNTER 2020-04-19 14:04 | Outpatient (NON) | payer MEDICARE, MEDICAID, SELFPAY ==
[2020-04-19 15:03] LABS: White Blood Count 5.8 K/mm3 (4.5-10.0)
== END 2020-04-19 14:05 ==
PROVIDERS: PCP Internal Medicine; Visit Provider Internal Medicine
DX: L89.154 Pressure ulcer of sacral region, stage 4 (principal); E86.9 Volume depletion, unspecified; L89.214 Pressure ulcer of right hip, stage 4; M46.28 Osteomyelitis of vertebra, sacral and sacrococcygeal region; Z46.6 Encounter for fitting and adjustment of urinary device
CPT/HCPCS: 85048

== ENCOUNTER 2020-07-31 10:32 | Outpatient (NON) | payer MEDICARE, MEDICAID, SELFPAY ==
[2020-07-31 10:56] LABS: Hemoglobin 9.3 g/dL (12.0-15.0); Mean Corpuscular Hemoglobin 27.2 pg (26-34); Mean Corpuscular Volume 87.7 fl (80-100); Mean Platelet Volume 9.9 fl (7.4-10.4); Platelet Count Result 469 k/mm3 (150-375); Red Blood Count 3.42 M/mm3 (4.2-5.4); Red Cell Distribution Width 16.1 % (11.5-14.5)
[2020-07-31 11:58] LABS: Alanine Aminotransferase 9 U/L (4-35); Albumin Level 3.3 g/dL (3.5-5.1); Alkaline Phosphatase 85 U/L (38-126); Anion Gap 4 mmol/L (8-16); Aspartate Amino Transferase 17 U/L (14-36); Bilirubin,Total 0.4 mg/dL (0.2-1.3); Blood Urea Nitrogen 31 mg/dL (7-17); Calcium 8.7 mg/dL (8.4-10.2); Carbon Dioxide 28 mmol/L (22-30); Chloride 114 mmol/L (98-107); Estimated Glomerular Filt Rate > 60; Glucose 85 mg/dL (65-105); Potassium 3.7 mmol/L (3.4-5.0); Sodium 146 mmol/L (137-145)
== END 2020-07-31 10:33 ==
PROVIDERS: PCP Internal Medicine; Visit Provider Internal Medicine
DX: G35 Multiple sclerosis (principal); N31.9 Neuromuscular dysfunction of bladder, unspecified; F03.90 Unspecified dementia, unspecified severity, without behavioral disturbance, psychotic disturbance, mood disturbance, and anxiety; Z46.6 Encounter for fitting and adjustment of urinary device
CPT/HCPCS: 80053; 85027

== ENCOUNTER 2020-10-02 10:24 | Outpatient (NON) | payer MEDICARE, MEDICAID, SELFPAY ==
[2020-10-02 10:43] LABS: Add Urine Microscopic? YES; Appearance Urine Turbid (Clear); Bacteria Urine 1+ /hpf; Bilirubin Urine Negative (Negative); Blood Urine Negative (Negative); Color Urine Yellow (Yellow); Glucose Urine UA Negative (Negative); Ketones Urine Negative (Negative); Leukocyte Esterase Ur 2+ LEU/UL (NEGATIVE); Mucus Urine Heavy /lpf; Nitrate Urine Negative (Negative); Protein Urine 3+ mg/dL (Negative); RBC Urine >75 /hpf (0-2); Specific Grav Ur 1.017 (1.001-1.035); Squamous Epithelial Cell Urine Moderate /hpf (Few); Urobilinogen Urine Negative mg/dL (<2.0); WBC Urine >75 /hpf (0-3)
== END 2020-10-02 10:25 | disposition home or self-care (01) ==
PROVIDERS: PCP Internal Medicine; Visit Provider Internal Medicine
DX: N31.9 Neuromuscular dysfunction of bladder, unspecified (principal); G35 Multiple sclerosis; F03.90 Unspecified dementia, unspecified severity, without behavioral disturbance, psychotic disturbance, mood disturbance, and anxiety; Z46.6 Encounter for fitting and adjustment of urinary device; R82.90 Unspecified abnormal findings in urine
CPT/HCPCS: 81001; 87077; 87086; 87088; 87186

== ENCOUNTER 2020-11-09 10:32 | Outpatient (RCR) | payer MEDICARE, MEDICAID, SELFPAY ==
[2020-11-09 13:17] VITALS: BMI 14.0
== END 2021-01-28 08:15 | disposition home health service (06) ==
LOC: ANHWOC 10:32
PROVIDERS: PCP Internal Medicine; Visit Provider Internal Medicine
DX: L89.154 Pressure ulcer of sacral region, stage 4 (principal)
CPT/HCPCS: 99213; G0463

== ENCOUNTER 2020-12-03 11:03 | Outpatient (CLI) | payer MEDICARE, MEDICAID, SELFPAY ==
[2020-12-03 11:41] LABS: Basophils Percent Auto 0.8 % (0.2-1.2); Eosinophils Absolute Auto 0.2 K/mm3 (0-0.3); Eosinophils Percent Auto 4.2 % (0-4.4); Hematocrit 32.9 % (37.0-47.0); Hemoglobin 9.7 g/dL (12.0-15.0); Immature Granulocyte Absolute 0.03 K/mm3 (0.00-0.031); Immature Granulocyte Percent A 0.6 % (0-0.5); Lymphocytes Absolute Auto 1.43 K/mm3 (0.9-3.2); Lymphocytes Percent Auto 28.6 % (18.3-44.2); Mean Corpuscular HGB Conc 29.5 g/dl (32-36); Mean Corpuscular Volume 81.2 fl (80-100); Mean Platelet Volume 8.5 fl (7.4-10.4); Monocytes Absolute Auto 0.2 K/mm3 (0.1-0.6); Monocytes Percent Auto 4.2 % (2.6-8.5); Neutrophils Absolute Auto 3.1 K/mm3 (1.3-6.7); Neutrophils Percent Auto 61.6 % (45.5-73.1); Platelet Count Result 524 k/mm3 (150-375); Red Blood Count 4.05 M/mm3 (4.2-5.4); Red Cell Distribution Width 17.6 % (11.5-14.5)
[2020-12-03 11:55] LABS: Alanine Aminotransferase 8 U/L (4-35); Albumin Level 3.2 g/dL (3.5-5.1); Alkaline Phosphatase 101 U/L (38-126); Anion Gap 6 mmol/L (8-16); Aspartate Amino Transferase 22 U/L (14-36); Bilirubin,Total 0.3 mg/dL (0.2-1.3); Blood Urea Nitrogen 14 mg/dL (7-17); Calcium 8.6 mg/dL (8.4-10.2); Carbon Dioxide 27 mmol/L (22-30); Chloride 111 mmol/L (98-107); Estimated Glomerular Filt Rate > 60; Glucose 86 mg/dL (65-105); Potassium 3.8 mmol/L (3.4-5.0); Sodium 144 mmol/L (137-145)
[2020-12-03 15:57] LABS: Vitamin D 25 Hydroxy < 12.8 ng/mL
== END 2020-12-03 11:04 | disposition home or self-care (01) ==
PROVIDERS: PCP Internal Medicine; Visit Provider Internal Medicine
DX: D72.829 Elevated white blood cell count, unspecified (principal); E55.9 Vitamin D deficiency, unspecified; E43 Unspecified severe protein-calorie malnutrition; I10 Essential (primary) hypertension
CPT/HCPCS: 36415; 80053; 82306; 85025

== ENCOUNTER 2021-02-27 11:01 | Outpatient (NON) | payer MEDICARE, MEDICAID, SELFPAY ==
[2021-02-27 12:23] LABS: Add Urine Microscopic? YES; Appearance Urine Cloudy (Clear); Bacteria Urine 2+ /hpf; Bilirubin Urine Negative (Negative); Blood Urine 1+ (Negative); Color Urine Yellow (Yellow); Glucose Urine UA Negative (Negative); Ketones Urine Negative (Negative); Leukocyte Esterase Ur 2+ LEU/UL (Negative); Mucus Urine Rare /lpf; Nitrate Urine Positive (Negative); Protein Urine 2+ mg/dL (Negative); Specific Grav Ur 1.014 (1.001-1.035); Squamous Epithelial Cell Urine Rare /hpf (Few); Urobilinogen Urine Negative mg/dL (<2.0); WBC Clumps Urine Present /HPF; WBC Urine >75 /hpf
== END 2021-02-27 11:02 | disposition home or self-care (01) ==
LOC: HOME HLTH 11:05
PROVIDERS: PCP Internal Medicine; Visit Provider Internal Medicine
DX: N31.9 Neuromuscular dysfunction of bladder, unspecified (principal); G35 Multiple sclerosis; F03.90 Unspecified dementia, unspecified severity, without behavioral disturbance, psychotic disturbance, mood disturbance, and anxiety; Z46.6 Encounter for fitting and adjustment of urinary device
CPT/HCPCS: 81001; 87077; 87086; 87088; 87186

== ENCOUNTER 2021-03-07 12:30 | Outpatient (NON) | payer MEDICARE, MEDICAID, SELFPAY ==
[2021-03-07 12:59] LABS: Add Urine Microscopic? YES; Appearance Urine Cloudy (Clear); Bacteria Urine Trace /hpf; Bilirubin Urine Negative (Negative); Blood Urine 1+ (Negative); Color Urine Amber (Yellow); Glucose Urine UA Negative (Negative); Ketones Urine Negative (Negative); Leukocyte Esterase Ur 2+ LEU/UL (NEGATIVE); Mucus Urine Heavy /lpf; Nitrate Urine Negative (Negative); Protein Urine 2+ mg/dL (Negative); RBC Urine 51-75 /hpf (0-2); Specific Grav Ur 1.026 (1.001-1.035); Squamous Epithelial Cell Urine Many /hpf (Few); Transitional Epi Cells Urine Rare /hpf (None Seen); WBC Clumps Urine Present /HPF; WBC Urine >75 /hpf (0-3)
== END 2021-03-07 12:31 | disposition home or self-care (01) ==
LOC: HOME HLTH 12:33
PROVIDERS: PCP Internal Medicine; Visit Provider Internal Medicine
DX: N39.0 Urinary tract infection, site not specified (principal)
CPT/HCPCS: 81001

== ENCOUNTER 2021-03-20 11:00 | Outpatient (NON) | payer MEDICARE, MEDICAID, SELFPAY ==
[2021-03-20 12:53] LABS: Hematocrit 27.8 % (37.0-47.0); Hemoglobin 8.3 g/dL (12.0-15.0); Mean Corpuscular HGB Conc 29.9 g/dl (32-36); Mean Corpuscular Hemoglobin 25.2 pg (26-34); Mean Corpuscular Volume 84.5 fl (80-100); Platelet Count Result 564 k/mm3 (150-375); Red Blood Count 3.29 M/mm3 (4.2-5.4); Red Cell Distribution Width 19.2 % (11.5-14.5); White Blood Count 7.1 K/mm3 (4.5-10.0)
[2021-03-20 13:13] LABS: Alanine Aminotransferase 11 U/L (4-35); Albumin Level 2.9 g/dL (3.5-5.1); Alkaline Phosphatase 81 U/L (38-126); Anion Gap 6 mmol/L (8-16); Aspartate Amino Transferase 17 U/L (14-36); Bilirubin,Total < 0.1 mg/dL (0.2-1.3); Blood Urea Nitrogen 15 mg/dL (7-17); Carbon Dioxide 25 mmol/L (22-30); Chloride 113 mmol/L (98-107); Estimated Glomerular Filt Rate > 60; Glucose 151 mg/dL (65-110); Potassium 3.8 mmol/L (3.4-5.0); Sodium 144 mmol/L (137-145)
== END 2021-03-20 11:01 | disposition home or self-care (01) ==
PROVIDERS: PCP Internal Medicine; Referring Provider Internal Medicine; Visit Provider Nurse Practitioner Family
DX: G35 Multiple sclerosis (principal); N31.9 Neuromuscular dysfunction of bladder, unspecified; F03.90 Unspecified dementia, unspecified severity, without behavioral disturbance, psychotic disturbance, mood disturbance, and anxiety; Z46.6 Encounter for fitting and adjustment of urinary device
CPT/HCPCS: 80053; 85027; 87070; 87077; 87147; 87186; 87205

== ENCOUNTER 2021-04-05 13:12 | Outpatient (NON) | payer MEDICARE, MEDICAID, SELFPAY ==
[2021-04-05 14:11] LABS: Magnesium 2.2 mg/dL (1.6-2.3)
[2021-04-05 14:16] LABS: Vitamin D 25 Hydroxy < 12.8 ng/mL
[2021-04-05 14:28] LABS: Iron 24 ug/dL (37-170); Percent Iron Saturation 9 % (20-50)
== END 2021-04-05 13:13 | disposition home or self-care (01) ==
PROVIDERS: PCP Internal Medicine; Visit Provider Internal Medicine
DX: D64.9 Anemia, unspecified (principal); E55.9 Vitamin D deficiency, unspecified
CPT/HCPCS: 82306; 82607; 82728; 83540; 83550; 83735

== ENCOUNTER 2021-05-22 12:11 | Outpatient (NON) | payer OTHER, SELFPAY ==
[2021-05-22 13:30] LABS: Add Urine Microscopic? YES; Appearance Urine Turbid (Clear); Bacteria Urine 1+ /hpf; Bilirubin Urine Negative (Negative); Blood Urine 1+ (Negative); Color Urine Yellow (Yellow); Glucose Urine UA Negative (Negative); Ketones Urine Negative (Negative); Leukocyte Esterase Ur 2+ LEU/UL (Negative); Mucus Urine Heavy /lpf; Nitrate Urine Negative (Negative); Protein Urine 2+ mg/dL (Negative); RBC Urine 21-50 /hpf (0-2); Specific Grav Ur 1.019 (1.001-1.035); Squamous Epithelial Cell Urine Many /hpf (Few); Urobilinogen Urine Negative mg/dL (<2.0); WBC Clumps Urine Present /HPF; WBC Urine >75 /hpf
== END 2021-05-22 12:12 | disposition home or self-care (01) ==
LOC: HOME HLTH 12:20
PROVIDERS: PCP Internal Medicine; Visit Provider Internal Medicine
DX: N31.9 Neuromuscular dysfunction of bladder, unspecified (principal); G35 Multiple sclerosis; F03.90 Unspecified dementia, unspecified severity, without behavioral disturbance, psychotic disturbance, mood disturbance, and anxiety; Z46.6 Encounter for fitting and adjustment of urinary device; Z51.81 Encounter for therapeutic drug level monitoring; Z79.899 Other long term (current) drug therapy
CPT/HCPCS: 81001; 87086; 87088

== ENCOUNTER 2021-05-24 15:06 | Outpatient (NON) | payer OTHER, SELFPAY ==
[2021-05-24 15:49] LABS: Add Urine Microscopic? YES; Appearance Urine Cloudy (Clear); Bacteria Urine Trace /hpf; Bilirubin Urine Negative (Negative); Color Urine Yellow (Yellow); Glucose Urine UA Negative (Negative); Ketones Urine Negative (Negative); Leukocyte Esterase Ur 3+ LEU/UL (Negative); Mucus Urine Heavy /lpf; Nitrate Urine Positive (Negative); Protein Urine 1+ mg/dL (Negative); RBC Urine 21-50 /hpf (0-2); Specific Grav Ur 1.021 (1.001-1.035); Squamous Epithelial Cell Urine Many /hpf (Few); Urobilinogen Urine Negative mg/dL (<2.0); WBC Clumps Urine Present /HPF; WBC Urine >75 /hpf
[2021-05-24 15:58] LABS: Blood Urine Negative (Negative)
== END 2021-05-24 15:07 | disposition home or self-care (01) ==
LOC: ANHLAB 15:12
PROVIDERS: PCP Internal Medicine; Visit Provider Internal Medicine
DX: N31.9 Neuromuscular dysfunction of bladder, unspecified (principal); G35 Multiple sclerosis; F03.90 Unspecified dementia, unspecified severity, without behavioral disturbance, psychotic disturbance, mood disturbance, and anxiety; Z46.6 Encounter for fitting and adjustment of urinary device; N39.0 Urinary tract infection, site not specified
CPT/HCPCS: 81001; 87077; 87086; 87186

== ENCOUNTER 2021-05-27 12:54 | Inpatient (IN) | payer OTHER, SELFPAY ==
--- NOTE | ~2021-05-27 | XR_ITS ---
EXAMINATION: XR abdomen obstructive series DATE: 06/05/2021 13:12 INDICATION: Abdominal distention TECHNIQUE: Frontal supine and upright views of the abdomen were obtained. COMPARISON: None. FINDINGS: Small lung volumes which could be related to elevation of the diaphragm resulting from the large amou nt of gas and stool scattered throughout the colon suggestive of constipation. No dilated gas-filled loops of small bowel to suggest obstruction. No free intraperitoneal gas. Mild opacities at the eva ng bases. IMPRESSION: 1. Small lung volumes which may be related to the large amount of gas and stool diffusely distending the colon and suggestive of constipation. 2. Bibasilar opacities most likely atelectasis with differential including pneumonia. Reviewed, dictated and finalized at location A. PER MEAT IMPRESSION: 1. Small lung volumes which may be related to the large amount of gas and stoo l diffusely distending the colon and suggestive of constipation. 2. Bibasilar opacities most likely atelectasis with differential including pneu monia.
--- NOTE | ~2021-05-27 | XR_ITS ---
EXAMINATION: XR chest 1V portable DATE: 06/03/2021 07:57 INDICATION: Fever. TECHNIQUE: A single frontal view of the chest was obtained. COMPARISON: Chest single view 05/08/2019, chest CT 01/05/2014 FINDINGS: Lung volumes are small. There are airspace opacities in right mid and lower lung zones and left upper and lower lung zones. No pleural effusion or pneumothorax. The heart size is normal. There are old bilateral rib fractures. IMPRESSION: 1. Small lung volumes with airspace opacities in right mid and lower lung zones and left upper and lo wer lung zones, consistent with atelectasis versus pneumonia. Reviewed, dictated and finalized at location B. E RANCHER IMPRESSION: 1. Small lung volumes with airspace opacities in right mid and lower lung zones and left upper and lower lung zones, consistent with atelectasis versus pneumo jl.
--- NOTE | ~2021-05-27 | XR_ITS ---
XR abdomen/kub 1V DATE: 06/10/2021 06:25 INDICATION: Constipation TECHNIQUE: Portable supine AP views on 06/27/2021 at 0610 hours COMPARISON: 06/08/2021 KUB 06/07/2021 water soluble enema FINDINGS: There is a persistent very large amount of fecal material within the rectum and colon. Ther e is residual contrast material predominantly in the transverse and left colon and rectum. Prominent diffuse osteopenia. Dextroscoliosis of the thoracolumbar spine. IMPRESSION: Persistent prominent amount of fecal material in the colon and decreased colonic motility , with residual contrast in the transverse and left colon and rectum Reviewed, dictated and finalized at Location [facility]. Reviewed, dictated and finalized at location A. ORK DESKTOP SUPPORT SPECIALIST IMPRESSION: Persistent prominent amount of fecal material in the colon and decr eased colonic motility, with residual contrast in the transverse and left colon and rectum
--- NOTE | ~2021-05-27 | XR_ITS ---
EXAMINATION: XR abdomen obstructive series DATE: 06/07/2021 07:51 INDICATION: Abdominal distention. TECHNIQUE: Upright and supine views of the abdomen on 3 radiographs were obtained. COMPARISON: Abdomen radiographs 06/06/2021 FINDINGS: There is a large volume of stool in the colon, which is distended. The small bowel is ollie l in caliber. No free intraperitoneal gas. IMPRESSION: 1. Distended colon with large volume of stool, likely adynamic ileus and stool impaction. Reviewed, dictated and finalized at location A. BUILDER
--- NOTE | ~2021-05-27 | XR_ITS ---
EXAMINATION: XR abdomen obstructive series DATE: 06/06/2021 08:44 INDICATION: Colonic distention. TECHNIQUE: Upright and supine views of the abdomen on 3 radiographs were obtained. COMPARISON: Abdomen radiographs 06/05/2021, CT abdomen and pelvis 01/05/2014 FINDINGS: The colon is distended and contains a large volume of stool. There are dilated loops of sma ll bowel. No free intraperitoneal gas. There is mild atelectasis at left lung base. IMPRESSION: 1. Distended colon with large volume of stool and dilated loops of small bowel, likely adynamic ileus and stool impaction. Reviewed, dictated and finalized at location B. FOLD WORKER
--- NOTE | ~2021-05-27 | XR_ITS ---
EXAMINATION: XR abdomen obstructive series DATE: 06/08/2021 12:42 INDICATION: Adynamic ileus. TECHNIQUE: Upright and supine views of the abdomen were obtained. COMPARISON: Abdomen radiographs 06/07/2021 FINDINGS: The colon is distended and filled with stool. The small bowel is normal in caliber. No free intraperitoneal gas. IMPRESSION: 1. Distended colon with large volume of stool, likely adynamic ileus and stool impaction. Reviewed, dictated and finalized at location A. ER TUBING SPLICER
--- NOTE | ~2021-05-27 | XR_ITS ---
EXAMINATION: XR enema water soluble DATE: 06/07/2021 13:57 INDICATION: Constipation. TECHNIQUE: A director of brand marketing radiograph was obtained. A catheter was inserted into the patient's rectum. Contra st was infused by gravity. Fluoroscopic spot images were obtained. Fluoroscopy exposure time was 0.2 minutes. The total number of images was 10. COMPARISON: Abdomen radiographs 06/07/2021 FINDINGS: The distal colon is distended. There is a large volume of stool in the colon. Contrast prog ressed to the sigmoid colon. No stricture. IMPRESSION: 1. Distended colon with large volume of stool, consistent with adynamic ileus and stool impaction. Reviewed, dictated and finalized at location A. CY SALES DIRECTOR IMPRESSION: 1. Distended colon with large volume of stool, consistent with adynamic ileus a nd stool impaction.
[2021-05-27 12:55] VITALS: BP 113/74; PULSE 84; RESP 16; TEMP 36.8; O2SAT 100
--- NOTE | 2021-05-27 14:25 | ED.GENADULT ---
HPI - General Adult General Chief complaint: Urogenital-Female Stated complaint: ?UTI Time Seen by Provider: 05/27/21 13:10 Source: EMS and RN notes reviewed Limitations: altered mental status and dementia History of Present Illness HPI narrative: Patient referred to the ED by by Dr. Trinidad for urinary tract infection, catheter related and the need to change the Santoro catheter. History of dementia, patient alert to herself Related Data Home Medications Medication Instructions Recorded Confirmed mirtazapine 15 mg PO HS 04/13/20 04/08/21 polyethylene glycol 3350 [Miralax] 17 g PO PRN PRN 04/13/20 04/08/21 Allergies Allergy/AdvReac Type Severity Reaction Status Date / Time No Known Allergies Allergy Verified 04/08/21 11:02 Review of Systems Review of Systems: ROS unobtainable: Yes unobtainable due to mental status PMFSH Past Medical History Medical History (Updated 05/27/21 @ 15:40 by Juan Daniel Delgado MD) Constipation Dementia History of DVT (deep vein thrombosis) In August 2013, treated with Xarelto. Lumbago Multiple sclerosis Neurogenic bladder Pulmonary nodule 1.9 centimeter left lower lobe lung mass noted on imaging in January 2014. Subsequent chest CT failed to demonstrate a nodule. Spinal stenosis Surgical History Surgical History History of hysterectomy Tubal ligation status Family History Family History Daughter Hypertension Social History Social History Social History: The patient lives in [place] with her daughter. Her daughter, Fior Kaye, is her surrogate decision maker. The patient is listed as a full code. Her primary care provider is Dr. Tray Carlton. She denies alcohol, tobacco, and drug use. Smoking status: Never smoker Second hand tobacco smoke exposure: Yes Alcohol intake: never Substance use: never Substance use type: does not use Gender identity (if verbalized by the patient): Female Sexual Orientation (if Verbalized by the Patient): Straight or Heterosexual Spiritual care concerns: No Agree to blood products: Yes Exam Narrative: General appearance: Well-developed, well-nourished Skin: Normal color Head: Normocephalic, nontraumatic Eyes: Clear conjunctiva Neck: Supple, nontender Chest and respiratory: Airway patent, no respiratory distress, no accessory muscle use Heart: Regular rate/rhythm Abdomen: Soft, nontender, no organomegaly, quiet bowel sounds, Santoro catheter in place Vascular: Normal peripheral pulses, normal capillary refill. Alert, disoriented x4 Course Course Emergency Course: Stable Vital Signs Vital signs: Vital Signs Temperature 36.8 C 05/27/21 12:55 Pulse Rate 84 05/27/21 12:55 Respiratory Rate 16 05/27/21 12:55 Blood Pressure 113/74 05/27/21 12:55 Pulse Oximetry 100 05/27/21 12:55 Temperature 36.8 C 05/27/21 12:55 Pulse Rate 84 05/27/21 12:55 Respiratory Rate 16 05/27/21 12:55 Blood Pressure 113/74 05/27/21 12:55 Pulse Oximetry 100 05/27/21 12:55 Medical Decision Making MDM Narrative Medical decision making narrative: Urinary tract infection, catheter related. IV fluids, IV Rocephin, labs ordered Differential Diagnosis Differential Diagnosis: Urinary tract infection Vital Signs Vital Signs: Vital Signs Temperature 36.8 C 05/27/21 12:55 Pulse Rate 84 05/27/21 12:55 Respiratory Rate 16 05/27/21 12:55 Blood Pressure 113/74 05/27/21 12:55 Pulse Oximetry 100 05/27/21 12:55 Temperature 36.8 C 05/27/21 12:55 Pulse Rate
[2021-05-27 14:29] LABS: Basophils Percent Auto 0.8 % (0.2-1.2); Eosinophils Absolute Auto 0.1 K/mm3 (0-0.3); Eosinophils Percent Auto 2.1 % (0-4.4); Hematocrit 31.4 % (37.0-47.0); Hemoglobin 9.3 g/dL (12.0-15.0); Immature Granulocyte Absolute 0.01 K/mm3 (0.00-0.031); Immature Granulocyte Percent A 0.2 % (0-0.5); Lymphocytes Absolute Auto 1.05 K/mm3 (0.9-3.2); Mean Corpuscular HGB Conc 29.6 g/dl (32-36); Mean Corpuscular Hemoglobin 24.9 pg (26-34); Mean Corpuscular Volume 84.2 fl (80-100); Mean Platelet Volume 9.4 fl (7.4-10.4); Monocytes Absolute Auto 0.3 K/mm3 (0.1-0.6); Monocytes Percent Auto 6.5 % (2.6-8.5); Neutrophils Absolute Auto 3.7 K/mm3 (1.3-6.7); Neutrophils Percent Auto 70.4 % (45.5-73.1); Platelet Count Result 345 k/mm3 (150-375); Red Blood Count 3.73 M/mm3 (4.2-5.4); Red Cell Distribution Width 18.1 % (11.5-14.5); White Blood Count 5.3 K/mm3 (4.5-10.0)
[2021-05-27 14:41] LABS: Lactic Acid Reflex 1.2 mmol/L (0.7-2.1)
[2021-05-27 14:53] LABS: Alanine Aminotransferase 10 U/L (4-35); Albumin Level 3.2 g/dL (3.5-5.1); Alkaline Phosphatase 70 U/L (38-126); Anion Gap 5 mmol/L (8-16); Aspartate Amino Transferase 20 U/L (14-36); Bilirubin,Total 0.3 mg/dL (0.2-1.3); Blood Urea Nitrogen 17 mg/dL (7-17); CRP 2.2 mg/dL (<1.0); Calcium 8.4 mg/dL (8.4-10.2); Carbon Dioxide 26 mmol/L (22-30); Chloride 108 mmol/L (98-107); Estimated CRCL calculation 65 ml/min; Estimated Glomerular Filt Rate > 60; Glucose 132 mg/dL (65-110); Potassium 4.3 mmol/L (3.4-5.0); Sodium 139 mmol/L (137-145)
[2021-05-27 15:32] LABS: Hypochromasia 1+ (NORMAL); Platelet Estimate Adequate (Adequate)
[2021-05-27 15:33] LABS: Anisocytosis 2+ (NORMAL)
[2021-05-27 16:39] LABS: Add Urine Microscopic? YES; Appearance Urine Cloudy (Clear); Bacteria Urine Trace /hpf; Bilirubin Urine Negative (Negative); Blood Urine 1+ (Negative); Color Urine Yellow (Yellow); Glucose Urine UA Negative (Negative); Ketones Urine Negative (Negative); Leukocyte Esterase Ur 3+ LEU/UL (Negative); Mucus Urine Few /lpf; Nitrate Urine Negative (Negative); Protein Urine 2+ mg/dL (Negative); RBC Urine 21-50 /hpf (0-2); Specific Grav Ur 1.021 (1.001-1.035); Squamous Epithelial Cell Urine Many /hpf (Few); Urobilinogen Urine Negative mg/dL (<2.0); WBC Urine >75 /hpf
[2021-05-27 17:06] VITALS: BP 112/75; PULSE 80; RESP 20; O2SAT 100
--- NOTE | 2021-05-27 18:46 | ADMGEN ---
This patient, Jessica Ann, was admitted to Medical Room 347-. Patient/family oriented to hospital policies and general routines including ID bracelet, bed and alarms, visiting hours, pain management, procedures, bathroom and other care routines, personal items, smoking policy, room service/diet, and visiting hours. Information on how to activate the Rapid Response Team has been discussed. Patient/Family are encouraged to report perceived risks to care and to ask questions if they do not understand what they are told or what they should do.
[2021-05-27 18:49] VITALS: BP 127/73; PULSE 76; RESP 16; TEMP 36.7; O2SAT 100; BMI 15.7
[2021-05-27 21:37] VITALS: BP 97/54; PULSE 70; RESP 18; TEMP 36.7; O2SAT 100
--- NOTE | 2021-05-27 21:51 | PM.IMHP ---
H&P: HPI History of Present Illness Date/Time: 05/27/21 21:51 this is a 75-year-old femal e patient who was referred to the emergency room due to a urinary tract infection. The patient was being seen by her urologist Dr. Trinidad. The patient was there because she was in need of a Santoro catheter change. The patient is a very poor historian and has a history of dementia. The patient is a very poor historian cannot answer questions. Most of the information is obtained from her previous medical records. the patient's blood pressure is soft at 97/54. Her H&H is 9.3 and 31.4 which appears to be her baseline. C reactive protein is 2.2. Urine is positive for UTI although it does have many squamous epithelial cells. The patient had a urinary culture performed on 05/24/2021 which shows Pseudomonas aeruginosa. The patient has sores on her heels and her buttocks. The wound care nurse was consulted. The patient initially was started on ceftriaxone and a change her to cefepime. The patient is being admitted to observation status on the date of service of 05/27/2021. Chief Complaint: Urinary tract infection Review of Systems Review of Systems: ROS unobtainable: Yes unobtainable due to mental status PMFSH Past Medical History Medical History Constipation Dementia History of CVA (cerebrovascular accident) History of DVT (deep vein thrombosis) In August 2013, treated with Xarelto. Hyperlipidemia Lumbago Multiple sclerosis Neurogenic bladder Pulmonary nodule 1.9 centimeter left lower lobe lung mass noted on imaging in January 2014. Subsequent chest CT failed to demonstrate a nodule. Spinal stenosis Surgical History Surgical History History of hysterectomy Tubal ligation status Family History Family History Daughter Hypertension Social History Social History Social History: The patient lives in [place] with her daughter. Her daughter, Fior Kaye, is her surrogate decision maker. The patient is listed as a full code. Her primary care provider is Dr. Tray Carlton. She denies alcohol, tobacco, and drug use. Smoking status: Former smoker Second hand tobacco smoke exposure: Yes Alcohol intake: never Substance use: never Substance use type: does not use Gender identity (if verbalized by the patient): Female Sexual Orientation (if Verbalized by the Patient): Straight or Heterosexual Spiritual care concerns: No Agree to blood products: Yes Meds Home Medications and Allergies Home Medications Medication Instructions Recorded Confirmed Type mirtazapine 15 mg PO HS 04/13/20 05/27/21 History polyethylene glycol 3350 [Miralax] 17 g PO PRN PRN 04/13/20 05/27/21 History oxybutynin chloride 5 mg tablet 5 mg PO DAILY #30 tablet 08/03/20 05/27/21 Rx collagenase clostridium histo. 250 1 applic TOPICAL DAILY #90 g 03/06/21 05/27/21 Rx unit/gram topical ointment ciprofloxacin HCl 250 mg tablet 250 mg PO Q12H #20 tablet 05/24/21 05/27/21 Rx Allergies Allergy/AdvReac Type Severity Reaction Status Date / Time No Known Allergies Allergy Verified 05/27/21 16:33 Vital Signs Vital Signs - 24 hr 05/27/21 12:55 05/27/21 17:06 05/27/21 18:49 Temperature 36.8 C 36.7 C Pulse Rate 84 80 76 Respiratory Rate 16 20 16 Blood Pressure 113/74 112/75 127/73 Pulse Oximetry 100 100 100 05/27/21 21:37 Temperature 36.7 C Pulse Rate 70 Respiratory Rate 18 Blood Pressure 97/54 L Pulse Oximetry 100 Exam Const: General: cooperative, comfortable, no acute distress, well developed, alert, awake and Physically active Nutritional Appearance: thin Orientation/consciousness: oriented to person HENMT: Head: normal to inspection, No palpable skull fracture present, normocephalic, atraumatic and
[2021-05-27] MEDS: MIRTAZAPINE 15 MG TABLET PO (23:24)
[2021-05-28 06:00] VITALS: BP 114/86; PULSE 68; RESP 18; TEMP 36.8; O2SAT 95
[2021-05-28] MEDS: COLLAGENASE OINT 30 GM TUBE 1 APPLIC TOPICAL (08:40)
[2021-05-28] MEDS: OXYBUTYNIN CHLORIDE 5 MG TABLET PO (08:40)
[2021-05-28 14:00] VITALS: BP 117/85; PULSE 82; RESP 18; TEMP 36.8; O2SAT 99
[2021-05-28 14:03] VITALS: BMI 15.7
--- NOTE | 2021-05-28 15:06 | WPDURCON ---
Assessment and Plan Assessment and plan (1) Urinary tract infection: Qualifiers: Hematuria presence: without hematuria Urinary tract infection type: site unspecified Qualified Code(s): N39.0 - Urinary tract infection, site not specified Code(s): N39.0 - Urinary tract infection, site not specified Status: Acute Assessment and Plan: Although her urine culture grew pseudomonas and her UA does appear that bacteria is present. Her urine looks great, and she is stable, WBC is normal, I suspect she may be colonized and not infected. We will see what her cultures show. No further evaluation from Urology at this time. Continue Cefepime, tailor antibiotics if necessary or stop them. I recommend only culturing if her urine is cloudy, bloody or malodorous, if she has mental status changes or becomes febrile. Urology Consult Note HPI Date Seen: 05/28/21 Requesting Physician: Ct Downing PA-C Primary Care Provider: Tray Carlton DO Consult Narrative Narrative: Jessica Ann is a 75 year old female who is back in the hospital as of yesterday for a continued UTI/sepsis. She had a positive urine culture on 05/24/2021 growing pseudomonas which was being treated with ceftriaxone. However she was sent back d/t continued symptoms of a UTI and weakness. She has dementia and cannot give a history. There is no family at the bedside and all information was obtained from her chart. Blood and urine cultures are pending at this time, but her urine does appear to have a continued UTI. Although her urine in the catheter is clear and yellow. Her catheter was changed on 05/22/2021, and she has regular monthly cath changes with an indwelling hatfield indefinitely. Her WBC is stable at 5.3 and creatinine is 0.50. She declines any symptoms or pain at this time, but again is unreliable with medical history or subjective symptoms. It was said that she was told to go back to the ER by Dr. Trinidad, however she has never been seen in our office. Review of Systems Review of Systems: ROS unobtainable: Yes unobtainable due to mental status PMFSH Past Medical History Medical History Constipation Dementia History of CVA (cerebrovascular accident) History of DVT (deep vein thrombosis) In August 2013, treated with Xarelto. Hyperlipidemia Lumbago Multiple sclerosis Neurogenic bladder Pulmonary nodule 1.9 centimeter left lower lobe lung mass noted on imaging in January 2014. Subsequent chest CT failed to demonstrate a nodule. Spinal stenosis Surgical History Surgical History History of hysterectomy Tubal ligation status Family History Family History Daughter Hypertension Social History Social History Social History: The patient lives in [place] with her daughter. Her daughter, Fior Kaye, is her surrogate decision maker. The patient is listed as a full code. Her primary care provider is Dr. Tray aCrlton. She denies alcohol, tobacco, and drug use. Smoking status: Former smoker Second hand tobacco smoke exposure: Yes Alcohol intake: never Substance use: never Substance use type: does not use Gender identity (if verbalized by the patient): Female Sexual Orientation (if Verbalized by the Patient): Straight or Heterosexual Spiritual care concerns: No Agree to blood products: Yes Meds Home Medications and Allergies Home Medications Medication Instructions Recorded Confirmed Type mirtazapine 15 mg PO HS 04/13/20 05/27/21 History polyethylene glycol 3350 [Miralax] 17 g PO PRN PRN 04/13/20 05/27/21 History oxybutynin chloride 5 mg tablet 5 mg PO DAILY #30 tablet 08/03/20 05/27/21 Rx collagenase clostridium histo. 250 1 applic TOPICAL DAILY #90 g 03/06/21 05/27/21 Rx
--- NOTE | 2021-05-28 16:35 | PM.IMPN ---
Progress Note: A&P Assessment and Plan (1) Urinary tract infection: Qualifiers: Hematuria presence: without hematuria Urinary tract infection type: site unspecified Qualified Code(s): N39.0 - Urinary tract infection, site not specified Code(s): N39.0 - Urinary tract infection, site not specified Status: Acute Assessment and Plan: Patient is a 75-year-old woman with a history of chronic Santoro catheter, dementia, who presented to the emergency room after being sent by her doctor's office for urinary tract infection with multiple drug-resistant antibiotics and needed hospitalization for IV antibiotics. Patient had her Santoro catheter changed on 05/22/2021 at the urologist office. Otherwise patient states she is feeling well this time. Initial vitals showed blood pressure 113/74, heart rate 84, afebrile, normal oxygenation on room air. Initial labs showed normal white count, normocytic anemia with a hemoglobin of 9.4, normal differential, normal renal function, normal electrolytes, slight elevation in glucose at 132, normal lactic acid, normal LFTs, slight elevation creatinine at 2.2. Urinalysis from 05/24/2021 which grew out Pseudomonas aeruginosa with resistance to fluoroquinolones and imipenem. She was sent to the ER for further IV antibiotic for treatment of her UTI. She was started on IV cefepime and admitted to the hospital with a consult to Urology for which she follows as an outpatient. Patient feeling well today without any concerns. Repeat urinalysis on arrival to ER showed cloudy urine, 2+ protein, 3+ leukocyte esterase, greater than 75 WBCs and many squamous cells. Cefepime day #2 Urology evaluated the patient and states even though the patient's urine grew Pseudomonas and bacteria is present. Urology states her urine is looking good, white blood cell count stable, and wondering if she does not have an infection but is colonized with this bacteria. Recommended continue monitoring urine culture results. Continue with cefepime and tailor as needed versus stopping the cefepime if do not feel she has an infection. And only check urine culture if urine is cloudy, bloody or malodorous or fever or mental status changes. Continue monitoring. Recheck labs in the morning. (2) Heel ulcer: Code(s): L97.409 - Non-pressure chronic ulcer of unspecified heel and midfoot with unspecified severity Status: Acute Assessment and Plan: Wound care evaluated and made recommendations. Chuckle boots in place as well. (3) Multiple sclerosis: Code(s): G35 - Multiple sclerosis Status: Acute Assessment and Plan: Patient has footdrop and appears to be bedbound. (4) Dementia: Qualifiers: Dementia type: unspecified type Dementia behavioral disturbance: without behavioral disturbance Qualified Code(s): F03.90 - Unspecified dementia without behavioral disturbance Code(s): F03.90 - Unspecified dementia without behavioral disturbance Status: Chronic Assessment and Plan: Stable at this time. (5) Essential (primary) hypertension: Onset Date: 12/07/18 Code(s): I10 - Essential (primary) hypertension Status: Acute Assessment and Plan: Blood pressure 114/86. Stable. Continue to monitor. Time Spent With Patient Time with patient: 25 - 35 minutes Subjective Date/time seen: 05/28/21 16:35 Interval history: Date of service 05/28/2021: Patient reports feeling well at this time other than having some pain to her arm where the back joiner just took some blood. Denies any chest pain, shortness of breath, cough, fever, chills, nausea, vomiting, abdominal pain, constipation, diarrhea, leg swelling, calf pain, or any other symptoms at this time.
[2021-05-28 20:00] VITALS: PULSE 82; RESP 18; O2SAT 99
[2021-05-28] MEDS: MIRTAZAPINE 15 MG TABLET PO (21:11)
[2021-05-28 22:00] VITALS: BP 128/66; PULSE 53; RESP 18; TEMP 37.9; O2SAT 93
[2021-05-29 05:55] LABS: Hematocrit 31.9 % (37.0-47.0); Hemoglobin 9.7 g/dL (12.0-15.0); Mean Corpuscular HGB Conc 30.4 g/dl (32-36); Mean Corpuscular Hemoglobin 24.8 pg (26-34); Mean Corpuscular Volume 81.6 fl (80-100); Mean Platelet Volume 9.2 fl (7.4-10.4); Platelet Count Result 387 k/mm3 (150-375); Red Blood Count 3.91 M/mm3 (4.2-5.4); Red Cell Distribution Width 18.1 % (11.5-14.5); White Blood Count 6.8 K/mm3 (4.5-10.0)
[2021-05-29 05:59] LABS: Anion Gap 7 mmol/L (8-16); Blood Urea Nitrogen 14 mg/dL (7-17); Calcium 8.5 mg/dL (8.4-10.2); Carbon Dioxide 28 mmol/L (22-30); Chloride 105 mmol/L (98-107); Estimated CRCL calculation 48 ml/min; Estimated Glomerular Filt Rate > 60; Glucose 92 mg/dL (65-110); Potassium 4.3 mmol/L (3.4-5.0); Sodium 140 mmol/L (137-145)
[2021-05-29 06:00] VITALS: BP 109/81; PULSE 108; RESP 16; TEMP 35.6; O2SAT 93
[2021-05-29] MEDS: COLLAGENASE OINT 30 GM TUBE 1 APPLIC TOPICAL (08:41)
[2021-05-29] MEDS: OXYBUTYNIN CHLORIDE 5 MG TABLET PO (08:41)
[2021-05-29 09:49] LABS: CRP 2.1 mg/dL (<1.0)
[2021-05-29 09:53] LABS: Lactate Dehydrogenase 342 U/L (313-618)
[2021-05-29 14:35] VITALS: BP 80/46; PULSE 84; RESP 22; TEMP 36.7; O2SAT 100
[2021-05-29 14:56] VITALS: BP 90/60
--- NOTE | 2021-05-29 15:19 | PM.IMPN ---
Progress Note: A&P Assessment and Plan (1) Urinary tract infection: Qualifiers: Hematuria presence: without hematuria Urinary tract infection type: site unspecified Qualified Code(s): N39.0 - Urinary tract infection, site not specified Code(s): N39.0 - Urinary tract infection, site not specified Status: Acute Assessment and Plan: Patient is a 75-year-old woman with a history of chronic Santoro catheter, dementia, who presented to the emergency room after being sent by her doctor's office for urinary tract infection with multiple drug-resistant antibiotics and needed hospitalization for IV antibiotics. Patient had her Santoro catheter changed on 05/22/2021 at the urologist office. Otherwise patient states she is feeling well this time. Initial vitals showed blood pressure 113/74, heart rate 84, afebrile, normal oxygenation on room air. Initial labs showed normal white count, normocytic anemia with a hemoglobin of 9.4, normal differential, normal renal function, normal electrolytes, slight elevation in glucose at 132, normal lactic acid, normal LFTs, slight elevation creatinine at 2.2. Urinalysis from 05/24/2021 which grew out Pseudomonas aeruginosa with resistance to fluoroquinolones and imipenem. She was sent to the ER for further IV antibiotic for treatment of her UTI. She was started on IV cefepime and admitted to the hospital with a consult to Urology for which she follows as an outpatient. Patient feeling well today without any concerns. Repeat urinalysis on arrival to ER showed cloudy urine, 2+ protein, 3+ leukocyte esterase, greater than 75 WBCs and many squamous cells. Cefepime day #3 Urology evaluated the patient and states even though the patient's urine grew Pseudomonas and bacteria is present. Urology states her urine is looking good, white blood cell count stable, and wondering if she does not have an infection but is colonized with this bacteria. Recommended continue monitoring urine culture results. Continue with cefepime and tailor as needed versus stopping the cefepime if do not feel she has an infection. And only check urine culture if urine is cloudy, bloody or malodorous or fever or mental status changes. Patients Urine culture from arrival showed no growth on urine culture, but the patient had a fever last night of 100.3F. I will continue on Cefepime at this time, continue monitoring vitals to make sure she is not having anymore fevers. WBC normal. Continue monitoring. Recheck labs in the morning. (2) Fever: Code(s): R50.9 - Fever, unspecified Status: Acute Assessment and Plan: patient found to have a fever overnight. White count still normal. Blood pressure this afternoon was borderline hypotensive at 90/60. she has not had any more fevers today. Heart rate is normal. 100% on room air. Will continue monitoring without making any adjustments, continue IV cefepime. If she spikes another fever then will draw another set of blood cultures and repeat chest x-ray. Will start some light IV fluid hydration of normal saline at 60 cc an hour to help with blood pressure. Patient is otherwise been eating and drinking without any issues. Continue monitoring. (3) Heel ulcer: Code(s): L97.409 - Non-pressure chronic ulcer of unspecified heel and midfoot with unspecified severity Status: Acute Assessment and Plan: Wound care evaluated and made recommendations. Waffle boots in place as well. (4) Multiple sclerosis: Code(s): G35 - Multiple sclerosis Status: Acute Assessment and Plan: Patient has footdrop and appears to be bedbound. (5) Dementia: Qualifiers: Dementia type: unspecified type Dementia behavioral disturbance: without behav
[2021-05-29] MEDS: SODIUM CHLORIDE 0.9% IV 500 ML 60 ML IV CONT (16:00)
[2021-05-29 17:28] VITALS: BP 94/64
[2021-05-29 20:00] VITALS: PULSE 85; RESP 14; O2SAT 100
[2021-05-29 20:03] VITALS: BP 104/72; PULSE 85; RESP 14; TEMP 36.4; O2SAT 100
[2021-05-29] MEDS: PANTOPRAZOLE SODIUM IV 40 MG VIAL IV PUSH (20:52)
[2021-05-29] MEDS: MIRTAZAPINE 15 MG TABLET PO (20:52)
[2021-05-30 06:00] VITALS: BP 119/67; PULSE 88; RESP 14; TEMP 36.6; O2SAT 99
[2021-05-30 06:35] LABS: Anion Gap 4 mmol/L (8-16); Blood Urea Nitrogen 17 mg/dL (7-17); Calcium 8.5 mg/dL (8.4-10.2); Carbon Dioxide 28 mmol/L (22-30); Chloride 106 mmol/L (98-107); Estimated CRCL calculation 33 ml/min; Estimated Glomerular Filt Rate > 60; Glucose 102 mg/dL (65-110); Potassium 4.1 mmol/L (3.4-5.0); Sodium 138 mmol/L (137-145)
[2021-05-30 06:39] LABS: Basophils Absolute Auto 0.1 K/mm3 (0.0-0.1); Basophils Percent Auto 0.8 % (0.2-1.2); Eosinophils Absolute Auto 0.3 K/mm3 (0-0.3); Eosinophils Percent Auto 3.3 % (0-4.4); Hematocrit 30.1 % (37.0-47.0); Immature Granulocyte Absolute 0.04 K/mm3 (0.00-0.031); Immature Granulocyte Percent A 0.5 % (0-0.5); Lymphocytes Absolute Auto 1.07 K/mm3 (0.9-3.2); Lymphocytes Percent Auto 12.6 % (18.3-44.2); Mean Corpuscular HGB Conc 29.9 g/dl (32-36); Mean Corpuscular Hemoglobin 24.5 pg (26-34); Mean Platelet Volume 9.1 fl (7.4-10.4); Monocytes Absolute Auto 0.4 K/mm3 (0.1-0.6); Monocytes Percent Auto 4.4 % (2.6-8.5); Neutrophils Absolute Auto 6.7 K/mm3 (1.3-6.7); Neutrophils Percent Auto 78.4 % (45.5-73.1); Platelet Count Result 384 k/mm3 (150-375); Red Blood Count 3.67 M/mm3 (4.2-5.4); Red Cell Distribution Width 18.2 % (11.5-14.5); White Blood Count 8.5 K/mm3 (4.5-10.0)
[2021-05-30] MEDS: OXYBUTYNIN CHLORIDE 5 MG TABLET PO (08:46)
[2021-05-30] MEDS: ENOXAPARIN 40 MG/0.4 ML SYRINGE SUB-Q (08:46)
[2021-05-30] MEDS: COLLAGENASE OINT 30 GM TUBE 1 APPLIC TOPICAL (08:46)
[2021-05-30] MEDS: PANTOPRAZOLE SODIUM IV 40 MG VIAL IV PUSH ×2 (08:46→20:53)
[2021-05-30 14:00] VITALS: BP 105/71; PULSE 102; RESP 14; TEMP 36.9; O2SAT 100
--- NOTE | 2021-05-30 14:55 | PM.IMPN ---
Progress Note: A&P Assessment and Plan (1) Urinary tract infection: Qualifiers: Hematuria presence: without hematuria Urinary tract infection type: site unspecified Qualified Code(s): N39.0 - Urinary tract infection, site not specified Code(s): N39.0 - Urinary tract infection, site not specified Status: Acute Assessment and Plan: Patient is a 75-year-old woman with a history of chronic Santoro catheter, dementia, who presented to the emergency room after being sent by her doctor's office for urinary tract infection with multiple drug-resistant antibiotics and needed hospitalization for IV antibiotics. Patient had her Santoro catheter changed on 05/22/2021 at the urologist office. Otherwise patient states she is feeling well this time. Initial vitals showed blood pressure 113/74, heart rate 84, afebrile, normal oxygenation on room air. Initial labs showed normal white count, normocytic anemia with a hemoglobin of 9.4, normal differential, normal renal function, normal electrolytes, slight elevation in glucose at 132, normal lactic acid, normal LFTs, slight elevation creatinine at 2.2. Urinalysis from 05/24/2021 which grew out Pseudomonas aeruginosa with resistance to fluoroquinolones and imipenem. She was sent to the ER for further IV antibiotic for treatment of her UTI. She was started on IV cefepime and admitted to the hospital with a consult to Urology for which she follows as an outpatient. Urology evaluated the patient and states even though the patient's urine grew Pseudomonas and bacteria is present. Urology states her urine is looking good, white blood cell count stable, and wondering if she does not have an infection but is colonized with this bacteria. Recommended continue monitoring urine culture results. Continue with cefepime and tailor as needed versus stopping the cefepime if do not feel she has an infection. And only check urine culture if urine is cloudy, bloody or malodorous or fever or mental status changes. Repeat urinalysis on arrival to ER showed cloudy urine, 2+ protein, 3+ leukocyte esterase, greater than 75 WBCs and many squamous cells. urine culture showed mixed bacteria ryan from ER arrival. Cefepime day #4 No more fevers since reading of (05/28/21 100.3F). I will continue on Cefepime at this time, continue monitoring vitals to make sure she is not having anymore fevers. WBC normal. Patient feeling well today without any concerns. Continue monitoring. Recheck labs in the morning. (2) Fever: Code(s): R50.9 - Fever, unspecified Status: Acute Assessment and Plan: patient found to have a fever 05/28/21 with borderline hypotensive at 90/60. he has not had any more fevers today. Heart rate is normal. 100% on room air. Will continue monitoring without making any adjustments, continue IV cefepime. If she spikes another fever then will draw another set of blood cultures and repeat chest x-ray. Patient is otherwise been eating and drinking without any issues. Continue monitoring. (3) Heel ulcer: Code(s): L97.409 - Non-pressure chronic ulcer of unspecified heel and midfoot with unspecified severity Status: Acute Assessment and Plan: Wound care evaluated and made recommendations. Waffle boots in place as well. (4) Multiple sclerosis: Code(s): G35 - Multiple sclerosis Status: Acute Assessment and Plan: Patient has footdrop and appears to be bedbound. (5) Dementia: Qualifiers: Dementia type: unspecified type Dementia behavioral disturbance: without behavioral disturbance Qualified Code(s): F03.90 - Unspecified dementia without behavioral disturbance Code(s): F03.90 - Unspecified dementia without behavioral distu
[2021-05-30] MEDS: MIRTAZAPINE 15 MG TABLET PO (20:53)
[2021-05-30 21:13] VITALS: BP 100/69; PULSE 104; RESP 20; TEMP 36.1; O2SAT 92
[2021-05-31 05:17] VITALS: BP 102/60; PULSE 112; RESP 16; TEMP 37.1; O2SAT 100
[2021-05-31 05:57] LABS: Basophils Absolute Auto 0.1 K/mm3 (0.0-0.1); Basophils Percent Auto 0.8 % (0.2-1.2); Eosinophils Absolute Auto 0.3 K/mm3 (0-0.3); Eosinophils Percent Auto 3.9 % (0-4.4); Hematocrit 28.3 % (37.0-47.0); Hemoglobin 8.4 g/dL (12.0-15.0); Immature Granulocyte Absolute 0.03 K/mm3 (0.00-0.031); Immature Granulocyte Percent A 0.4 % (0-0.5); Lymphocytes Absolute Auto 1.01 K/mm3 (0.9-3.2); Lymphocytes Percent Auto 13.7 % (18.3-44.2); Mean Corpuscular HGB Conc 29.7 g/dl (32-36); Mean Corpuscular Hemoglobin 24.8 pg (26-34); Mean Corpuscular Volume 83.5 fl (80-100); Mean Platelet Volume 8.9 fl (7.4-10.4); Monocytes Absolute Auto 0.4 K/mm3 (0.1-0.6); Neutrophils Absolute Auto 5.6 K/mm3 (1.3-6.7); Neutrophils Percent Auto 75.2 % (45.5-73.1); Platelet Count Result 323 k/mm3 (150-375); Red Blood Count 3.39 M/mm3 (4.2-5.4); Red Cell Distribution Width 18.2 % (11.5-14.5); White Blood Count 7.4 K/mm3 (4.5-10.0)
[2021-05-31 06:07] LABS: Anion Gap 6 mmol/L (8-16); Blood Urea Nitrogen 15 mg/dL (7-17); Calcium 8.4 mg/dL (8.4-10.2); Carbon Dioxide 24 mmol/L (22-30); Chloride 106 mmol/L (98-107); Estimated CRCL calculation 56 ml/min; Estimated Glomerular Filt Rate > 60; Glucose 91 mg/dL (65-110); Potassium 4.3 mmol/L (3.4-5.0); Sodium 136 mmol/L (137-145)
[2021-05-31] MEDS: OXYBUTYNIN CHLORIDE 5 MG TABLET PO (08:22)
[2021-05-31] MEDS: PANTOPRAZOLE SODIUM IV 40 MG VIAL IV PUSH ×2 (08:22→21:14)
[2021-05-31] MEDS: ENOXAPARIN 40 MG/0.4 ML SYRINGE SUB-Q (08:22)
[2021-05-31] MEDS: COLLAGENASE OINT 30 GM TUBE 1 APPLIC TOPICAL (08:26)
[2021-05-31 08:28] LABS: Anisocytosis 1+ (NORMAL); Hypochromasia 1+ (NORMAL); Platelet Estimate Adequate (Adequate)
--- NOTE | 2021-05-31 11:20 | PCNFU ---
Nutrition Follow-Up Complete: Increased Protein needs as related to wounds as evidenced by reported pressure ulcers. goal: Adequate Intake of at least 75% of meals/supplements Patient is progressing towards goal. We will continue current goal. Pt current nutrition is Soft and bite Sized, Level 6/Heart Healthy with Compact BID(220 kcals and 9 gms protein) and Keith BID (90 kcals and 2.5 gms protein). Last recorded weight is 42.8 kg, no new weight to report. Recommend: new weight. Bowel Motility:+BM reported 05/30 Labs Reviewed:Cr 0.5, Na 136 Meds Noted:Maxipime, Lovenox, Protonix, Remeron Skin: Stage 3 pressure ulcer-left buttock, stage 2-right buttock, stage 3-left heel. Additional Notes: Patient eating 90-100% of Soft and bite sized, Level 6 diet. IV antibiotics continues. Monitoring: I will monitor every 5 days.
--- NOTE | 2021-05-31 12:32 | PM.IMPN ---
Progress Note: A&P Assessment and Plan (1) Urinary tract infection: Qualifiers: Hematuria presence: without hematuria Urinary tract infection type: site unspecified Qualified Code(s): N39.0 - Urinary tract infection, site not specified Code(s): N39.0 - Urinary tract infection, site not specified Status: Acute Assessment and Plan: Patient is a 75-year-old woman with a history of chronic Santoro catheter, dementia, who presented to the emergency room after being sent by her doctor's office for urinary tract infection with multiple drug-resistant antibiotics and needed hospitalization for IV antibiotics. Patient had her Santoro catheter changed on 05/22/2021 at the urologist office. Otherwise patient states she is feeling well this time. Initial vitals showed blood pressure 113/74, heart rate 84, afebrile, normal oxygenation on room air. Initial labs showed normal white count, normocytic anemia with a hemoglobin of 9.4, normal differential, normal renal function, normal electrolytes, slight elevation in glucose at 132, normal lactic acid, normal LFTs, slight elevation creatinine at 2.2. Urinalysis from 05/24/2021 which grew out Pseudomonas aeruginosa with resistance to fluoroquinolones and imipenem. She was sent to the ER for further IV antibiotic for treatment of her UTI. She was started on IV cefepime and admitted to the hospital with a consult to Urology for which she follows as an outpatient. Urology evaluated the patient and states even though the patient's urine grew Pseudomonas and bacteria is present. Urology states her urine is looking good, white blood cell count stable, and wondering if she does not have an infection but is colonized with this bacteria. Recommended continue monitoring urine culture results. Continue with cefepime and tailor as needed versus stopping the cefepime if do not feel she has an infection. And only check urine culture if urine is cloudy, bloody or malodorous or fever or mental status changes. Repeat urinalysis on arrival to ER showed cloudy urine, 2+ protein, 3+ leukocyte esterase, greater than 75 WBCs and many squamous cells. urine culture showed mixed bacteria ryan from ER arrival. Cefepime day #4 (05/28- to be discharged 06/03 afternoon) No more fevers since reading of (05/28/21 100.3F). I will continue on Cefepime at this time, continue monitoring vitals to make sure she is not having anymore fevers. WBC normal. Patient feeling well today without any concerns. Continue monitoring. Recheck labs in the morning. (2) Fever: Code(s): R50.9 - Fever, unspecified Status: Acute Assessment and Plan: patient found to have a fever 05/28/21 with borderline hypotensive at 90/60. he has not had any more fevers today. Heart rate is normal. 100% on room air. Will continue monitoring without making any adjustments, continue IV cefepime. If she spikes another fever then will draw another set of blood cultures and repeat chest x-ray. Patient is otherwise been eating and drinking without any issues. Continue monitoring. (3) Heel ulcer: Code(s): L97.409 - Non-pressure chronic ulcer of unspecified heel and midfoot with unspecified severity Status: Acute Assessment and Plan: Wound care evaluated and made recommendations. Waffle boots in place as well. (4) Multiple sclerosis: Code(s): G35 - Multiple sclerosis Status: Acute Assessment and Plan: Patient has footdrop and appears to be bedbound. (5) Dementia: Qualifiers: Dementia behavioral disturbance: without behavioral disturbance Dementia type: unspecified type Qualified Code(s): F03.90 - Unspecified dementia without behavioral disturbance Code(s): F03.90 - Uns
[2021-05-31 14:00] VITALS: BP 88/46; PULSE 68; TEMP 37.2; O2SAT 91
[2021-05-31] MEDS: LACTATED RINGERS 1,000 ML 999 ML IV CONT (15:45)
[2021-05-31 15:58] VITALS: BP 89/60; PULSE 92
[2021-05-31 17:45] VITALS: BP 96/54; PULSE 96
[2021-05-31 19:30] VITALS: BP 102/68; PULSE 100; RESP 16; TEMP 36.8; O2SAT 98
[2021-05-31] MEDS: MIRTAZAPINE 15 MG TABLET PO (21:14)
[2021-06-01] MEDS: LACTATED RINGERS 1,000 ML 60 ML IV CONT (04:33)
[2021-06-01 05:02] VITALS: BP 92/58; PULSE 104; RESP 18; TEMP 36.9; O2SAT 98
[2021-06-01 06:29] LABS: Basophils Percent Auto 0.5 % (0.2-1.2); Eosinophils Absolute Auto 0.2 K/mm3 (0-0.3); Eosinophils Percent Auto 2.1 % (0-4.4); Hematocrit 24.2 % (37.0-47.0); Hemoglobin 7.4 g/dL (12.0-15.0); Immature Granulocyte Absolute 0.03 K/mm3 (0.00-0.031); Immature Granulocyte Percent A 0.4 % (0-0.5); Lymphocytes Absolute Auto 1.13 K/mm3 (0.9-3.2); Lymphocytes Percent Auto 14.6 % (18.3-44.2); Mean Corpuscular HGB Conc 30.6 g/dl (32-36); Mean Corpuscular Hemoglobin 25.4 pg (26-34); Mean Corpuscular Volume 83.2 fl (80-100); Mean Platelet Volume 9.1 fl (7.4-10.4); Monocytes Absolute Auto 0.5 K/mm3 (0.1-0.6); Monocytes Percent Auto 6.5 % (2.6-8.5); Neutrophils Absolute Auto 5.9 K/mm3 (1.3-6.7); Neutrophils Percent Auto 75.9 % (45.5-73.1); Platelet Count Result 319 k/mm3 (150-375); Red Blood Count 2.91 M/mm3 (4.2-5.4); Red Cell Distribution Width 18.1 % (11.5-14.5); White Blood Count 7.8 K/mm3 (4.5-10.0)
[2021-06-01 06:33] LABS: Anion Gap 7 mmol/L (8-16); Blood Urea Nitrogen 18 mg/dL (7-17); Calcium 8.1 mg/dL (8.4-10.2); Carbon Dioxide 26 mmol/L (22-30); Chloride 105 mmol/L (98-107); Estimated CRCL calculation 42 ml/min; Estimated Glomerular Filt Rate > 60; Glucose 99 mg/dL (65-110); Potassium 3.8 mmol/L (3.4-5.0); Sodium 138 mmol/L (137-145)
[2021-06-01] MEDS: ENOXAPARIN 40 MG/0.4 ML SYRINGE SUB-Q (08:54)
[2021-06-01] MEDS: OXYBUTYNIN CHLORIDE 5 MG TABLET PO (08:54)
[2021-06-01] MEDS: COLLAGENASE OINT 30 GM TUBE 1 APPLIC TOPICAL (08:54)
[2021-06-01] MEDS: PANTOPRAZOLE SODIUM IV 40 MG VIAL IV PUSH ×2 (08:54→21:21)
--- NOTE | 2021-06-01 10:06 | P.PNIM_ITS ---
Progress Note: A&P Assessment and Plan (1) Urinary tract infection: Qualifiers: Hematuria presence: without hematuria Urinary tract infection type: site unspecified Qualified Code(s): N39.0 - Urinary tract infection, site not specified Code(s): N39.0 - Urinary tract infection, site not specified Status: Acute Assessment and Plan: Patient is a 75-year-old woman with a history of chronic Santoro catheter, dementia, who presented to the emergency room after being sent by her doctor's office for urinary tract infection with multiple drug-resistant antibiotics and needed hospitalization for IV antibiotics. Patient had her Santoro catheter changed on 05/22/2021 at the urologist office. Otherwise patient states she is feeling well this time. Initial vitals showed blood pressure 113/74, heart rate 84, afebrile, normal oxygenation on room air. Initial labs showed normal white count, normocytic anemia with a hemoglobin of 9.4, normal differential, normal renal function, normal electrolytes, slight elevation in glucose at 132, normal lactic acid, normal LFTs, slight elevation creatinine at 2.2. Urinalysis from 05/24/2021 which grew out Pseudomonas aeruginosa with resistance to fluoroquinolones and imipenem. She was sent to the ER for further IV antibiotic for treatment of her UTI. She was started on IV cefepime and admitted to the hospital with a consult to Urology for which she follows as an outpatient. * Urology evaluated the patient and states even though the patient's urine grew Pseudomonas and bacteria is present. Urology states her urine is looking good, white blood cell count stable, and wondering if she does not have an infection but is colonized with this bacteria. Recommended continue monitoring urine culture results. Continue with cefepime and tailor as needed versus stopping the cefepime if do not feel she has an infection. And only check urine culture if urine is cloudy, bloody or malodorous or fever or mental status changes. * Repeat urinalysis on arrival to ER showed cloudy urine, 2+ protein, 3+ leukocyte esterase, greater than 75 WBCs and many squamous cells. urine culture showed mixed bacteria ryan from ER arrival. * Cefepime day #5 (05/28- to be discharged 06/03 afternoon) * No more fevers since reading of (05/28/21 100.3F). I will continue on Cefepime at this time, continue monitoring vitals to make sure she is not having anymore fevers. WBC normal. * Patient feeling well today without any concerns. Continue monitoring. Recheck labs in the morning. (2) Fever: Code(s): R50.9 - Fever, unspecified Status: Acute Assessment and Plan: patient found to have a fever 05/28/21 with borderline hypotensive at 90/60. * he has not had any more fevers today. Heart rate is normal. 100% on room air. * Will continue monitoring without making any adjustments, continue IV cefepime. * If she spikes another fever then will draw another set of blood cultures and repeat chest x-ray. * Patient is otherwise been eating and drinking without any issues. Continue monitoring. (3) Heel ulcer: Code(s): L97.409 - Non-pressure chronic ulcer of unspecified heel and midfoot with unspecified severity Status: Acute Assessment and Plan: Wound care evaluated and made recommendations. Waffle boots in place as well. (4) Multiple sclerosis: Code(s): G35 - Multiple sclerosis Status: Acute Assessment and Plan: Patient has footdrop and appe
[2021-06-01 11:54] LABS: Hematocrit 26.6 % (37.0-47.0); Hemoglobin 8.1 g/dL (12.0-15.0)
[2021-06-01 14:00] VITALS: BP 94/66; RESP 18; TEMP 37.1
[2021-06-01 20:00] VITALS: PULSE 104; RESP 18; O2SAT 98
[2021-06-01] MEDS: MIRTAZAPINE 15 MG TABLET PO (21:21)
[2021-06-01 22:00] VITALS: BP 113/78; PULSE 100; RESP 16; TEMP 37.4; O2SAT 100
[2021-06-02 05:31] LABS: Hematocrit 24.7 % (37.0-47.0); Hemoglobin 7.7 g/dL (12.0-15.0); Mean Corpuscular HGB Conc 31.2 g/dl (32-36); Mean Corpuscular Hemoglobin 24.8 pg (26-34); Mean Corpuscular Volume 79.7 fl (80-100); Mean Platelet Volume 8.7 fl (7.4-10.4); Platelet Count Result 343 k/mm3 (150-375); Red Cell Distribution Width 17.6 % (11.5-14.5)
[2021-06-02 05:52] LABS: Anion Gap 3 mmol/L (8-16); Blood Urea Nitrogen 24 mg/dL (7-17); Calcium 8.5 mg/dL (8.4-10.2); Carbon Dioxide 26 mmol/L (22-30); Chloride 107 mmol/L (98-107); Estimated CRCL calculation 48 ml/min; Estimated Glomerular Filt Rate > 60; Glucose 91 mg/dL (65-110); Potassium 3.6 mmol/L (3.4-5.0); Sodium 136 mmol/L (137-145)
[2021-06-02 06:00] VITALS: BP 90/60; PULSE 115; RESP 18; TEMP 36.6; O2SAT 100
[2021-06-02] MEDS: COLLAGENASE OINT 30 GM TUBE 1 APPLIC TOPICAL (08:44)
[2021-06-02] MEDS: PANTOPRAZOLE SODIUM IV 40 MG VIAL IV PUSH ×2 (08:45→20:49)
[2021-06-02] MEDS: OXYBUTYNIN CHLORIDE 5 MG TABLET PO (08:45)
[2021-06-02] MEDS: ENOXAPARIN 40 MG/0.4 ML SYRINGE SUB-Q (08:45)
[2021-06-02 10:35] LABS: Transferrin 146 mg/dL (206-381)
[2021-06-02 10:47] LABS: Iron 16 ug/dL (37-170)
[2021-06-02 10:56] LABS: Percent Iron Saturation 7 % (20-50)
[2021-06-02 11:33] LABS: Folic Acid 10.5 ng/mL (2.76->20)
[2021-06-02 12:20] LABS: Hematocrit 27.5 % (37.0-47.0); Hemoglobin 8.3 g/dL (12.0-15.0)
[2021-06-02 14:10] LABS: Magnesium 2.2 mg/dL (1.6-2.3)
[2021-06-02 14:55] VITALS: BP 88/64; PULSE 118; TEMP 39.3; O2SAT 99
[2021-06-02 15:42] VITALS: TEMP 39.3
[2021-06-02] MEDS: ACETAMINOPHEN 325 MG TABLET 650 MG PO (15:42)
[2021-06-02 16:42] VITALS: TEMP 37.4
[2021-06-02 16:54] LABS: IFOB Positive Control Positive; Immunochemical Fecal Occult Bl Negative (N)
[2021-06-02 17:01] VITALS: TEMP 37.4
[2021-06-02] MEDS: MIRTAZAPINE 15 MG TABLET PO (20:47)
[2021-06-02 20:50] VITALS: BP 92/64; PULSE 105; RESP 18; TEMP 36.8; O2SAT 100
[2021-06-03 05:39] VITALS: BP 108/69; PULSE 97; RESP 16; TEMP 36.9; O2SAT 100
[2021-06-03 06:21] LABS: Hematocrit 25.2 % (37.0-47.0); Hemoglobin 7.7 g/dL (12.0-15.0); Mean Corpuscular HGB Conc 30.6 g/dl (32-36); Mean Corpuscular Hemoglobin 25.3 pg (26-34); Mean Corpuscular Volume 82.9 fl (80-100); Mean Platelet Volume 8.8 fl (7.4-10.4); Platelet Count Result 324 k/mm3 (150-375); Red Blood Count 3.04 M/mm3 (4.2-5.4); Red Cell Distribution Width 17.9 % (11.5-14.5); White Blood Count 7.5 K/mm3 (4.5-10.0)
[2021-06-03 06:32] LABS: Anion Gap 2 mmol/L (8-16); Blood Urea Nitrogen 23 mg/dL (7-17); Calcium 8.4 mg/dL (8.4-10.2); Carbon Dioxide 27 mmol/L (22-30); Chloride 109 mmol/L (98-107); Estimated CRCL calculation 41 ml/min; Estimated Glomerular Filt Rate > 60; Glucose 107 mg/dL (65-110); Potassium 3.9 mmol/L (3.4-5.0); Sodium 138 mmol/L (137-145)
[2021-06-03 08:24] LABS: CRP 7.8 mg/dL (<1.0); Lactate Dehydrogenase 312 U/L (313-618)
--- NOTE | 2021-06-03 09:52 | PM.IMPN ---
Progress Note: A&P Assessment and Plan (1) Urinary tract infection: Qualifiers: Hematuria presence: without hematuria Urinary tract infection type: site unspecified Qualified Code(s): N39.0 - Urinary tract infection, site not specified Code(s): N39.0 - Urinary tract infection, site not specified Status: Acute Assessment and Plan: Patient is a 75-year-old woman with a history of chronic Hatfield catheter, dementia, who presented to the emergency room after being sent by her doctor's office for urinary tract infection with multiple drug-resistant antibiotics and needed hospitalization for IV antibiotics. Patient had her Hatfield catheter changed on 05/22/2021 at the urologist office. Otherwise patient states she is feeling well this time. Initial vitals showed blood pressure 113/74, heart rate 84, afebrile, normal oxygenation on room air. Initial labs showed normal white count, normocytic anemia with a hemoglobin of 9.4, normal differential, normal renal function, normal electrolytes, slight elevation in glucose at 132, normal lactic acid, normal LFTs, slight elevation creatinine at 2.2. Urinalysis from 05/24/2021 which grew out Pseudomonas aeruginosa with resistance to fluoroquinolones and imipenem. She was sent to the ER for further IV antibiotic for treatment of her UTI. She was started on IV cefepime and admitted to the hospital with a consult to Urology for which she follows as an outpatient. Urology evaluated the patient and states even though the patient's urine grew Pseudomonas and bacteria is present. Urology states her urine is looking good, white blood cell count stable, and wondering if she does not have an infection but is colonized with this bacteria. Recommended continue monitoring urine culture results. Continue with cefepime and tailor as needed versus stopping the cefepime if do not feel she has an infection. And only check urine culture if urine is cloudy, bloody or malodorous or fever or mental status changes. Repeat urinalysis on arrival to ER showed cloudy urine, 2+ protein, 3+ leukocyte esterase, greater than 75 WBCs and many squamous cells. urine culture showed mixed bacteria ryan from ER arrival. Cefepime day #7 (05/28- to be discharged 06/03 afternoon) 06/03/21: Patient had a 102.7F 06/02/21 at 1500. Unsure the cause of her high fever. She is now afebrile, stable BP during hospitalization, stable heart rate during hospitalization, normal O2 100% on room air. Normal WBC . Elevated CRP at 7.8, normal LDH and Ferritin. CxR showed Small lung volumes with airspace opacities in right mid and lower lung zones and left upper and lower lung zones, consistent with atelectasis versus pneumonia. She is not coughing and 100% on Room air. Urine is clear in hatfield bag, will not recheck UA at this time. Blood cultures ordered and pending. I will continue on Cefepime at this time, continue monitoring vitals to make sure she is not having anymore fevers. WBC normal. Patient feeling well today without any concerns. Continue monitoring. Recheck labs in the morning. (2) Fever: Code(s): R50.9 - Fever, unspecified Status: Acute Assessment and Plan: patient found to have a fever 06/02/21 102.7F. She has not had any more fevers today. Heart rate is normal. 100% on room air. Will continue monitoring without making any adjustments, continue IV cefepime. CXR showed Small lung volumes with airspace opacities in right mid and lower lung zones and left upper and lower lung zones, consistent with atelectasis versus pneumonia. She is not coughing and 100% on Room air. Urine is clear in hatfield bag, will not recheck UA at this time. Blood cultures ordered and pending. Consider COVID, she has been vaccinated but does not appear to have booster. She otherwise is room air, inflammatory markers normal except CRP, ruling out other form of infection and monitoring
[2021-06-03] MEDS: FERROUS SULFATE 324 MG TABLET PO ×2 (10:00→17:14)
[2021-06-03] MEDS: ENOXAPARIN 40 MG/0.4 ML SYRINGE SUB-Q (10:00)
[2021-06-03] MEDS: OXYBUTYNIN CHLORIDE 5 MG TABLET PO (10:00)
[2021-06-03] MEDS: PANTOPRAZOLE SODIUM IV 40 MG VIAL IV PUSH ×2 (10:00→21:17)
[2021-06-03] MEDS: COLLAGENASE OINT 30 GM TUBE 1 APPLIC TOPICAL (10:01)
[2021-06-03 14:00] VITALS: BP 91/61; PULSE 106; RESP 20; TEMP 37.2; O2SAT 100
[2021-06-03 20:00] VITALS: PULSE 110; RESP 17; O2SAT 100
[2021-06-03 20:02] VITALS: BP 95/58; PULSE 110; RESP 17; TEMP 37.1; O2SAT 100
[2021-06-03] MEDS: MIRTAZAPINE 15 MG TABLET PO (21:17)
[2021-06-04] VITALS (12 sets, daily range): BP systolic 85–105; BP diastolic 52–80; PULSE 60–103; RESP 16–28; TEMP 36.3–37; O2SAT 96–100
[2021-06-04] MEDS: SODIUM CHLORIDE 0.9% IV 500 ML IV CONT (05:59)
[2021-06-04 06:26] LABS: Basophils Percent Auto 0.6 % (0.2-1.2); Eosinophils Absolute Auto 0.4 K/mm3 (0-0.3); Eosinophils Percent Auto 5.8 % (0-4.4); Hematocrit 22.6 % (37.0-47.0); Immature Granulocyte Absolute 0.03 K/mm3 (0.00-0.031); Immature Granulocyte Percent A 0.5 % (0-0.5); Lymphocytes Absolute Auto 1.36 K/mm3 (0.9-3.2); Lymphocytes Percent Auto 20.6 % (18.3-44.2); Mean Corpuscular HGB Conc 30.5 g/dl (32-36); Mean Corpuscular Hemoglobin 24.6 pg (26-34); Mean Corpuscular Volume 80.7 fl (80-100); Mean Platelet Volume 8.9 fl (7.4-10.4); Monocytes Absolute Auto 0.5 K/mm3 (0.1-0.6); Monocytes Percent Auto 7.6 % (2.6-8.5); Neutrophils Absolute Auto 4.3 K/mm3 (1.3-6.7); Neutrophils Percent Auto 64.9 % (45.5-73.1); Platelet Count Result 361 k/mm3 (150-375); Red Cell Distribution Width 17.8 % (11.5-14.5); White Blood Count 6.6 K/mm3 (4.5-10.0)
[2021-06-04 06:46] LABS: Hemoglobin 6.9 g/dL (12.0-15.0)
--- NOTE | 2021-06-04 06:52 | PC.NURSE ---
Dr control engineer called to inform her about patient critical lab hgb value of 6.9 but could not reach her.
[2021-06-04 06:57] LABS: Anion Gap 0 mmol/L (8-16); Blood Urea Nitrogen 23 mg/dL (7-17); CRP 5.1 mg/dL (<1.0); Calcium 8.4 mg/dL (8.4-10.2); Carbon Dioxide 28 mmol/L (22-30); Chloride 107 mmol/L (98-107); Estimated CRCL calculation 47 ml/min; Estimated Glomerular Filt Rate > 60; Glucose 99 mg/dL (65-110); Lactate Dehydrogenase 325 U/L (313-618); Magnesium 2.3 mg/dL (1.6-2.3); Potassium 3.8 mmol/L (3.4-5.0); Sodium 135 mmol/L (137-145)
--- NOTE | 2021-06-04 09:41 | PM.IMPN ---
Progress Note: A&P Assessment and Plan (1) Urinary tract infection: Qualifiers: Hematuria presence: without hematuria Urinary tract infection type: site unspecified Qualified Code(s): N39.0 - Urinary tract infection, site not specified Code(s): N39.0 - Urinary tract infection, site not specified Status: Acute Assessment and Plan: history of chronic Santoro catheter, dementia, sent by her doctor's office for urinary tract infection with multiple drug-resistant antibiotics Santoro catheter changed on 05/22/2021 at the urologist office. Initial labs showed normal white count, normal lactic acid, slight elevation creatinine at 2.2. Urinalysis from 05/24/2021 which grew out Pseudomonas aeruginosa with resistance to fluoroquinolones and imipenem. sent to the ER for further IV antibiotic for treatment of her UTI. started on IV cefepime and admitted to the hospital with a consult to Urology for which she follows as an outpatient. Urology evaluated the patient and states even though the patient's urine grew Pseudomonas and bacteria is present. Urology states her urine is looking good, white blood cell count stable, and wondering if she does not have an infection but is colonized with this bacteria. Recommended continue monitoring urine culture results. Continue with cefepime and tailor as needed versus stopping the cefepime if do not feel she has an infection. Repeat urinalysis on arrival to ER showed cloudy urine, 2+ protein, 3+ leukocyte esterase, greater than 75 WBCs and many squamous cells. urine culture showed mixed bacteria ryan from ER arrival. Cefepime day #7 (from 05/28- 06/03 and was expected to be discharged afternoon of 06/03, but spiked a fever on 06/02) Patient had a 102.7F 06/02/21 at 1500. Unsure the cause of her high fever. She is now afebrile, Normal WBC . Elevated CRP at 7.8. Her BPs are low 90-100s, and HR labile 60-110. CxR showed Small lung volumes with airspace opacities in right mid and lower lung zones and left upper and lower lung zones, consistent with atelectasis versus pneumonia. She is not coughing and 100% on Room air. Blood cultures ordered and pending. continue on Cefepime day 8 at this time, continue monitoring vitals to make sure she is not having anymore fevers. WBC normal. (2) Fever: Code(s): R50.9 - Fever, unspecified Status: Acute Assessment and Plan: patient found to have a fever 06/02/21 102.7F. She has not had any more fevers today. 100% on room air. Cefepime day #7 (from 05/28- 06/03 and was expected to be discharged afternoon of 06/03, but spiked a fever on 06/02) Patient had a 102.7F 06/02/21 at 1500. Unsure the cause of her high fever. She is now afebrile, Normal WBC . Elevated CRP at 7.8. Her BPs are low 90-100s, and HR labile 60-110. CxR showed Small lung volumes with airspace opacities in right mid and lower lung zones and left upper and lower lung zones, consistent with atelectasis versus pneumonia. She is not coughing and 100% on Room air. Blood cultures ordered and pending. Urine cultures. continue on Cefepime day 8 at this time, continue monitoring vitals to make sure she is not having anymore fevers. WBC normal. Consider COVID, she has been vaccinated but does not appear to have booster. She otherwise is room air, inflammatory markers normal except CRP, ruling out other form of infection and monitoring vitals, oxygenation, inflammatory markers and pending blood culture results (3) Heel ulcer: Code(s): L97.409 - Non-pressure chronic ulcer of unspecified heel and midfoot with unspecified severity Status: Acute Assessment and Plan: Wound care evaluated and made recommendations. Waffle boots in place as well. Nursing staff daily dressing changes (4) Multiple sclerosis: Code(s): G35 - Multiple sclerosis Status: Acute Assessment and Plan: Patient has footdrop and appears to be bedbound (5) Rafal
[2021-06-04] MEDS: ENOXAPARIN 40 MG/0.4 ML SYRINGE SUB-Q (09:52)
[2021-06-04] MEDS: FERROUS SULFATE 324 MG TABLET PO ×2 (09:52→17:08)
[2021-06-04] MEDS: OXYBUTYNIN CHLORIDE 5 MG TABLET PO (09:52)
[2021-06-04] MEDS: COLLAGENASE OINT 30 GM TUBE 1 APPLIC TOPICAL (09:53)
[2021-06-04] MEDS: PANTOPRAZOLE SODIUM IV 40 MG VIAL IV PUSH ×2 (09:53→20:57)
[2021-06-04] MEDS: SODIUM CHLORIDE 0.9% IV 250 ML 30 ML IV CONT (12:42)
[2021-06-04] MEDS: MIRTAZAPINE 15 MG TABLET PO (20:57)
[2021-06-04 21:36] LABS: Hematocrit 30.8 % (37.0-47.0); Hemoglobin 9.7 g/dL (12.0-15.0); Mean Corpuscular HGB Conc 31.5 g/dl (32-36); Mean Corpuscular Hemoglobin 25.9 pg (26-34); Mean Corpuscular Volume 82.1 fl (80-100); Mean Platelet Volume 8.7 fl (7.4-10.4); Platelet Count Result 412 k/mm3 (150-375); Red Blood Count 3.75 M/mm3 (4.2-5.4); Red Cell Distribution Width 16.9 % (11.5-14.5); White Blood Count 8.4 K/mm3 (4.5-10.0)
[2021-06-05] VITALS (10 sets, daily range): BP systolic 112–133; BP diastolic 76–90; PULSE 90–116; RESP 18–20; TEMP 36.2–37.3; O2SAT 98–100
[2021-06-05 06:28] LABS: Hematocrit 31.6 % (37.0-47.0); Hemoglobin 9.9 g/dL (12.0-15.0); Mean Corpuscular HGB Conc 31.3 g/dl (32-36); Mean Corpuscular Hemoglobin 25.8 pg (26-34); Mean Corpuscular Volume 82.3 fl (80-100); Mean Platelet Volume 8.6 fl (7.4-10.4); Platelet Count Result 393 k/mm3 (150-375); Red Blood Count 3.84 M/mm3 (4.2-5.4); White Blood Count 7.4 K/mm3 (4.5-10.0)
[2021-06-05 06:53] LABS: Anion Gap 9 mmol/L (8-16); Blood Urea Nitrogen 18 mg/dL (7-17); Calcium 8.9 mg/dL (8.4-10.2); Carbon Dioxide 24 mmol/L (22-30); Chloride 109 mmol/L (98-107); Estimated CRCL calculation 47 ml/min; Estimated Glomerular Filt Rate > 60; Glucose 109 mg/dL (65-110); Potassium 4.2 mmol/L (3.4-5.0); Sodium 142 mmol/L (137-145)
[2021-06-05] MEDS: FERROUS SULFATE 324 MG TABLET PO ×2 (08:20→16:42)
[2021-06-05] MEDS: ENOXAPARIN 40 MG/0.4 ML SYRINGE SUB-Q (08:20)
[2021-06-05] MEDS: PANTOPRAZOLE SODIUM IV 40 MG VIAL IV PUSH ×2 (08:20→21:01)
[2021-06-05] MEDS: OXYBUTYNIN CHLORIDE 5 MG TABLET PO (08:20)
[2021-06-05] MEDS: IRON SUCROSE COMPLEX 200 MG in SODIUM CHLORIDE 0.9% IV 50 ML 120 MG IVPB (08:21)
[2021-06-05] MEDS: COLLAGENASE OINT 30 GM TUBE 1 APPLIC TOPICAL (08:21)
--- NOTE | 2021-06-05 13:07 | PCNFU ---
Nutrition Follow-Up Complete: Increased Protein needs as related to wounds as evidenced by reported pressue ulcers. Goal: Adequate Intake of at least 75% of meals/supplements Pt is progressing towards goal Pt current nutrition is heart healthy diet, soft and bite sized, level 6, and dietary supplements. Last recorded weight is 42.8 kg. Bowel Motility: +BM 06/03 Labs Reviewed: hgb 9.9, hct 31.6, Cl 109, BUN 18, Cr 0.6 Meds Noted: maxipime, lovenox, ferrous sulfate, ditropan, protonix Skin: left buttock pressure ulcer, sacrum pressure ulcer, right buttock pressure ulcer, left heel pressure ulcer Additional Notes: Consulted for sever anemia and increase food intake. Unal RD will monitor every 5 days.
--- NOTE | 2021-06-05 13:21 | PCNFU ---
Nutrition Follow-Up Complete: Increased Protein needs as related to wounds as evidenced by reported pressue ulcers. Goal: Adequate Intake of at least 75% of meals/supplements Pt is progressing towards goal Pt current nutrition is heart healthy diet, soft and bite sized, level 6, and dietary supplements. Last recorded weight is 42.8 kg. Bowel Motility: +BM 06/03 Labs Reviewed: hgb 9.9, hct 31.6, Cl 109, BUN 18, Cr 0.6 Meds Noted: Maxipime, lovenox, ferrous sulfate, ditropan, protonix Skin: left buttock pressure ulcer, sacrum pressure ulcer, right buttock pressure ulcer Additional Notes: Consulted for severe anemia and need for increased intake. Per EMR, pt is on a heart healthy diet, soft and bite size, level 6, and dietary supplements of ensure compact BID providing an additional 220kcal and 9g of protein, aliza BID providing an additional 80kcal and 14g of protein, and glucerna shake TID providing an additional 220kcal and 10g of protein to increase caloric intake and aid in wound healing. Per EMR, intake is 100% x5. Spoke to nursing who confirms that pt eats everything on here tray. Nursing reports that pt did not receive dietary supplements on lunch tray today (06/05/21). Diet office has been notified and agree to send up supplements that were missing from tray. RDN placed orders for double portions of heart healthy diet. Spoke to physician on staff, Dr. Avila, who agreed with this order. Agree with diet orders at this time. Will continue to follow. RD will monitor every 5 days.
--- NOTE | 2021-06-05 14:31 | PM.IMPN ---
Progress Note: A&P Assessment and Plan (1) Urinary tract infection: Qualifiers: Hematuria presence: without hematuria Urinary tract infection type: site unspecified Qualified Code(s): N39.0 - Urinary tract infection, site not specified Code(s): N39.0 - Urinary tract infection, site not specified Status: Acute Assessment and Plan: Complicated UTI with history of chronic Santoro catheter. Sent by her doctor's office for urinary tract infection. Santoro catheter changed on 05/22/2021 at the urologist office. UCx 05/24 growing Pseudomonas resistant to fluoroquinolones and imipenem. She was started on IV cefepime and admitted to the hospital with a consult to Urology. She remains on Cefepime Day 9. Patient had a 102.7F 06/02/21 but none since. Blood cultures no growth. UCx 06/04pending. Will stop IV abx and follow. Ditropan probably being used for bladder spasms. Since this can cause tachycardia and constipation, will hold this for now. (2) Constipation by delayed colonic transit: Code(s): K59.01 - Slow transit constipation Status: Acute Assessment and Plan: Noted to have distended abdomen so stat KUB ordered showing large amount of gas and stool diffusely distending the colon and suggestive of constipation. Enema ordered once. Miralax BID scheduled. Not nauseous so will follow. (3) Fever: Code(s): R50.9 - Fever, unspecified Status: Acute Assessment and Plan: Patient found to have a fever 06/02/21 102.7F on Cefepime. CXR showed small lung volumes with airspace opacities in right mid and lower lung zones and left upper and lower lung zones, consistent with atelectasis versus pneumonia. She is not coughing and 100% on RA. Blood cultures no growth. UCx 06/04 pending. Continue to monitor. (4) Heel ulcer: Code(s): L97.409 - Non-pressure chronic ulcer of unspecified heel and midfoot with unspecified severity Status: Acute Assessment and Plan: Wound care evaluated and made recommendations. Continue waffle boots. Continue daily dressing changes. (5) Decubitus ulcer: Qualifiers: Laterality: unspecified laterality Pressure injury location: buttock Pressure injury stage: unspecified pressure injury stage Qualified Code(s): L89.309 - Pressure ulcer of unspecified buttock, unspecified stage Code(s): L89.90 - Pressure ulcer of unspecified site, unspecified stage Status: Acute Assessment and Plan: Large decubitus ulcers on her buttocks. Continue current dressing changes (6) Multiple sclerosis: Code(s): G35 - Multiple sclerosis Status: Acute Assessment and Plan: Patient has footdrop and appears to be bedbound. (7) Dementia: Qualifiers: Dementia behavioral disturbance: without behavioral disturbance Dementia type: unspecified type Qualified Code(s): F03.90 - Unspecified dementia without behavioral disturbance Code(s): F03.90 - Unspecified dementia without behavioral disturbance Status: Chronic Assessment and Plan: Patient is alert, pleasant and cooperative. She probably has behavioral disturbance; continue Remeron. Stable at this time (8) Essential (primary) hypertension: Onset Date: 12/07/18 Code(s): I10 - Essential (primary) hypertension Status: Acute Assessment and Plan: Patient's blood pressure was reviewed on 06/05 Blood pressure has been low at times. Not on medications at home for this. Will continue to monitor. (9) Microcytic anemia: Code(s): D50.9 - Iron deficiency anemia, unspecified Status: Acute Assessment and Plan: Patient appears to have a chronic anemia. Iron has been low in the past accompanied by a low TIBC and low iron saturation. Ferritin also has low end of normal. She has a normocytic anemia. B12 and folate levels are normal. Her hemoglobin did drop to 6.9 and she received 1 unit PRBC
--- NOTE | 2021-06-05 15:27 | PDONCCN ---
HPI - Date of Consult Date/Time: 06/05/21 15:27 Requesting Physician: Dasha Green NP Primary Care Provider: Tray Carlton, DO - Consult Narrative Narrative: Jessica Ann is a 76 year old female Patient with dementia UTI and other medical problems noted to be anic with low iron saturation Hb dropped to 6.9 Patientis receiving Iron supplementation She can not provide a history. Anemia has been noted on previous hospitilzations Not clear if source of blood loss has been looked for Review of Systems - Review of Systems unobtainable due to mental status - Neurologic Reports hearing normal, Reports weakness, Denies headache(s) [facility] Medical History: Medical History (Last Reviewed 05/28/21 @ 15:10 by Iva Fernandez APRN) Constipation Dementia History of CVA (cerebrovascular accident) History of DVT (deep vein thrombosis) In August 2013, treated with Xarelto. Hyperlipidemia Lumbago Multiple sclerosis Neurogenic bladder Pulmonary nodule 1.9 centimeter left lower lobe lung mass noted on imaging in January 2014. Subsequent chest CT failed to demonstrate a nodule. Spinal stenosis Surgical History: Surgical History (Last Reviewed 05/28/21 @ 15:10 by Iva Fernandez APRN) History of hysterectomy Tubal ligation status Family History: Family History (Last Reviewed 05/28/21 @ 15:10 by Iva Fernandez APRN) Daughter Hypertension - Social History Social History: Social History (Last Reviewed 05/28/21 @ 15:10 by Iva Fernandez APRN) Gender Identity: Gender identity (if verbalized by the patient): Female Sexual Orientation: Sexual Orientation (if Verbalized by the Patient): Straight or Heterosexual Alcohol Use: Alcohol intake: never Substance Use: Substance use: never Substance use type: does not use Others: Spiritual care concerns: No Agree to blood products: Yes Smoking Status: Smoking status: Former smoker Second hand tobacco smoke exposure: Yes Meds Home Medications Medication Instructions Recorded Confirmed Type mirtazapine 15 mg PO HS 04/13/20 05/27/21 History polyethylene glycol 3350 [Miralax] 17 g PO PRN PRN 04/13/20 05/27/21 History oxybutynin chloride 5 mg tablet 5 mg PO DAILY #30 tablet 08/03/20 05/27/21 Rx collagenase clostridium histo. 250 1 applic TOPICAL DAILY #90 g 03/06/21 05/27/21 Rx unit/gram topical ointment ciprofloxacin HCl 250 mg tablet 250 mg PO Q12H #20 tablet 05/24/21 05/27/21 Rx Allergies Allergy/AdvReac Type Severity Reaction Status Date / Time No Known Allergies Allergy Verified 05/27/21 16:33 Results - Labs CBC & Chem 7: 06/05/21 06:14 06/05/21 06:14 Labs: Short CBC 06/04/21 06/05/21 Range/Units 21:13 06:14 WBC 8.4 7.4 (4.5-10.0) K/mm3 Hgb 9.7 L 9.9 L (12.0-15.0) g/dL Hct 30.8 L 31.6 L (37.0-47.0) % Plt Count 412 H 393 H (150-375) k/mm3 BMP 06/05/21 06:14 Sodium 142 Potassium 4.2 Chloride 109 H Carbon Dioxide 24 BUN 18 H Creatinine 0.60 L Glucose 109 Calcium 8.9 Assessment and Plan - Additional Plan Iron defecient anamia no obvious etiology I would continue follow up and work up as outpatient
[2021-06-05] MEDS: polyethylene glycoL 3350 17 GM POWD.PACK PO (16:42)
--- NOTE | 2021-06-05 16:53 | PC.NURSE ---
Pt had soap suds enema this afternoon enema effective pt had large BM after enema.
[2021-06-05] MEDS: MIRTAZAPINE 15 MG TABLET PO (21:01)
[2021-06-06] VITALS (9 sets, daily range): BP systolic 101–124; BP diastolic 57–99; PULSE 87–113; RESP 18–20; TEMP 36–36.4; O2SAT 96–100
[2021-06-06 06:58] LABS: Hematocrit 30.9 % (37.0-47.0); Hemoglobin 9.5 g/dL (12.0-15.0); Mean Corpuscular HGB Conc 30.7 g/dl (32-36); Mean Corpuscular Hemoglobin 25.7 pg (26-34); Mean Corpuscular Volume 83.5 fl (80-100); Mean Platelet Volume 8.9 fl (7.4-10.4); Platelet Count Result 405 k/mm3 (150-375); Red Cell Distribution Width 17.6 % (11.5-14.5); White Blood Count 6.4 K/mm3 (4.5-10.0)
[2021-06-06 07:18] LABS: Alanine Aminotransferase 21 U/L (4-35); Albumin Level 3.1 g/dL (3.5-5.1); Alkaline Phosphatase 83 U/L (38-126); Anion Gap 9 mmol/L (8-16); Aspartate Amino Transferase 23 U/L (14-36); Bilirubin,Total 0.2 mg/dL (0.2-1.3); Blood Urea Nitrogen 24 mg/dL (7-17); CRP 2.5 mg/dL (<1.0); Calcium 8.8 mg/dL (8.4-10.2); Carbon Dioxide 24 mmol/L (22-30); Chloride 109 mmol/L (98-107); Estimated CRCL calculation 36 ml/min; Estimated Glomerular Filt Rate > 60; Glucose 93 mg/dL (65-110); Magnesium 2.4 mg/dL (1.6-2.3); Phosphorus 3.6 mg/dL (2.5-4.5); Potassium 4.5 mmol/L (3.4-5.0); Sodium 142 mmol/L (137-145)
[2021-06-06] MEDS: FERROUS SULFATE 324 MG TABLET PO ×2 (08:48→17:54)
[2021-06-06] MEDS: ENOXAPARIN 40 MG/0.4 ML SYRINGE SUB-Q (08:48)
[2021-06-06] MEDS: polyethylene glycoL 3350 17 GM POWD.PACK PO ×2 (08:49→17:54)
[2021-06-06] MEDS: COLLAGENASE OINT 30 GM TUBE 1 APPLIC TOPICAL (08:49)
--- NOTE | 2021-06-06 13:02 | PM.IMPN ---
Progress Note: A&P Assessment and Plan (1) Constipation by delayed colonic transit: Code(s): K59.01 - Slow transit constipation Status: Acute Assessment and Plan: Noted to have distended abdomen so stat KUB ordered showing large amount of gas and stool diffusely distending the colon and suggestive of constipation. Enema ordered with some stool output. Miralax BID scheduled started. Denies feeling nauseous. KUB this morning showing distended colon with large volume of stool and dilated loops of small bowel, likely adynamic ileus and stool impaction. Enema x1, repeat if no benefit. (2) Urinary tract infection: Qualifiers: Hematuria presence: without hematuria Urinary tract infection type: site unspecified Qualified Code(s): N39.0 - Urinary tract infection, site not specified Code(s): N39.0 - Urinary tract infection, site not specified Status: Acute Assessment and Plan: Complicated UTI with history of chronic Santoro catheter. Sent by her doctor's office for urinary tract infection. Santoro catheter changed on 05/22/2021 at the urologist office. UCx 05/24 growing Pseudomonas resistant to fluoroquinolones and imipenem. She was started on IV cefepime and admitted to the hospital with a consult to Urology. She completed Cefepime. Patient had a 102.7F 06/02/21 but none since. Blood cultures no growth. UCx 06/04 negative. Ditropan probably being used for bladder spasms but held since this can cause tachycardia and constipation. (3) Fever: Code(s): R50.9 - Fever, unspecified Status: Acute Assessment and Plan: Patient found to have a fever 06/02/21 102.7F on Cefepime. CXR showed small lung volumes with airspace opacities in right mid and lower lung zones and left upper and lower lung zones, consistent with atelectasis versus pneumonia. She is not coughing and 100% on RA. Blood cultures no growth. UCx 06/04 negative. Continue to monitor. (4) Heel ulcer: Code(s): L97.409 - Non-pressure chronic ulcer of unspecified heel and midfoot with unspecified severity Status: Acute Assessment and Plan: Wound care evaluated and made recommendations. Continue waffle boots. Continue daily dressing changes. (5) Decubitus ulcer: Qualifiers: Laterality: unspecified laterality Pressure injury location: buttock Pressure injury stage: unspecified pressure injury stage Qualified Code(s): L89.309 - Pressure ulcer of unspecified buttock, unspecified stage Code(s): L89.90 - Pressure ulcer of unspecified site, unspecified stage Status: Acute Assessment and Plan: Large decubitus ulcers on her buttocks. Appreciate Wound Care consult. Continue current dressing changes (6) Multiple sclerosis: Code(s): G35 - Multiple sclerosis Status: Acute Assessment and Plan: Patient has footdrop and appears to be bedbound. (7) Dementia: Qualifiers: Dementia behavioral disturbance: without behavioral disturbance Dementia type: unspecified type Qualified Code(s): F03.90 - Unspecified dementia without behavioral disturbance Code(s): F03.90 - Unspecified dementia without behavioral disturbance Status: Chronic Assessment and Plan: Patient is alert, pleasant and cooperative. She probably has behavioral disturbance; continue Remeron. Stable at this time (8) Essential (primary) hypertension: Onset Date: 12/07/18 Code(s): I10 - Essential (primary) hypertension Status: Acute Assessment and Plan: Patient's blood pressure was reviewed on 06/06 Blood pressure remaining stable. Not on medications at home for this. Will continue to monitor. (9) Microcytic anemia: Code(s): D50.9 - Iron deficiency anemia, unspecified Status: Acute Assessment and Plan: Patient appears to have a chronic anemia. Iron has been low in the past accompanied by a low TIBC and low i
[2021-06-06] MEDS: PANTOPRAZOLE 40 MG TABLET PO (21:21)
[2021-06-06] MEDS: MIRTAZAPINE 15 MG TABLET PO (21:21)
[2021-06-07] VITALS: BP 121/86; PULSE 106; RESP 19; TEMP 36.2; O2SAT 96
[2021-06-07 05:44] VITALS: BP 117/88; PULSE 105; RESP 17; TEMP 36.3; O2SAT 98
[2021-06-07 05:59] LABS: Hematocrit 28.6 % (37.0-47.0); Hemoglobin 9.1 g/dL (12.0-15.0); Mean Corpuscular HGB Conc 31.8 g/dl (32-36); Mean Corpuscular Hemoglobin 26.1 pg (26-34); Mean Corpuscular Volume 81.9 fl (80-100); Mean Platelet Volume 8.5 fl (7.4-10.4); Platelet Count Result 426 k/mm3 (150-375); Red Blood Count 3.49 M/mm3 (4.2-5.4); White Blood Count 6.5 K/mm3 (4.5-10.0)
[2021-06-07 06:07] LABS: Anion Gap 7 mmol/L (8-16); Blood Urea Nitrogen 18 mg/dL (7-17); Calcium 8.5 mg/dL (8.4-10.2); Carbon Dioxide 26 mmol/L (22-30); Chloride 108 mmol/L (98-107); Estimated CRCL calculation 41 ml/min; Estimated Glomerular Filt Rate > 60; Glucose 88 mg/dL (65-110); Potassium 3.7 mmol/L (3.4-5.0); Sodium 141 mmol/L (137-145)
[2021-06-07] MEDS: ENOXAPARIN 40 MG/0.4 ML SYRINGE SUB-Q (09:17)
[2021-06-07] MEDS: FERROUS SULFATE 324 MG TABLET PO ×2 (09:17→17:10)
[2021-06-07] MEDS: polyethylene glycoL 3350 17 GM POWD.PACK PO ×2 (09:17→17:10)
[2021-06-07] MEDS: PANTOPRAZOLE 40 MG TABLET PO ×2 (09:17→20:18)
[2021-06-07] MEDS: COLLAGENASE OINT 30 GM TUBE 1 APPLIC TOPICAL (09:18)
[2021-06-07 09:42] VITALS: BP 97/65; PULSE 112; RESP 28; TEMP 35.9; O2SAT 99
[2021-06-07 14:35] VITALS: BP 118/76; PULSE 94; RESP 16; TEMP 36.2; O2SAT 100
--- NOTE | 2021-06-07 17:27 | PM.IMPN ---
Progress Note: A&P Assessment and Plan (1) Constipation by delayed colonic transit: Code(s): K59.01 - Slow transit constipation Status: Acute Assessment and Plan: Noted to have distended abdomen so stat KUB ordered showing large amount of gas and stool diffusely distending the colon and suggestive of constipation. Enema ordered with some stool output. Miralax BID scheduled started. Denies feeling nauseous and eating well. KUB this morning again showing distended colon with large volume of stool but small bowel normal caliber, likely adynamic ileus and stool impaction. barium enema ordered but not very therapeutic. Repeat enema. Add colace. (2) Urinary tract infection: Qualifiers: Hematuria presence: without hematuria Urinary tract infection type: site unspecified Qualified Code(s): N39.0 - Urinary tract infection, site not specified Code(s): N39.0 - Urinary tract infection, site not specified Status: Acute Assessment and Plan: Complicated UTI with history of chronic Santoro catheter. Sent by her doctor's office for urinary tract infection. Santoro catheter changed on 05/22/2021 at the urologist office. UCx 05/24 growing Pseudomonas resistant to fluoroquinolones and imipenem. She was started on IV cefepime and admitted to the hospital with a consult to Urology. She completed Cefepime. Patient had a 102.7F 06/02/21 but none since. Blood cultures no growth. UCx 06/04 negative. Ditropan probably being used for bladder spasms but held since this can cause tachycardia and constipation. (3) Fever: Code(s): R50.9 - Fever, unspecified Status: Acute Assessment and Plan: Patient found to have a fever 06/02/21 102.7F while on Cefepime. CXR showed small lung volumes with airspace opacities in right mid and lower lung zones and left upper and lower lung zones, consistent with atelectasis versus pneumonia. She is not coughing and 100% on RA. Blood cultures no growth. UCx 06/04 negative. Continue to monitor. (4) Heel ulcer: Code(s): L97.409 - Non-pressure chronic ulcer of unspecified heel and midfoot with unspecified severity Status: Acute Assessment and Plan: Wound care evaluated and made recommendations. Continue waffle boots. Continue daily dressing changes. (5) Decubitus ulcer: Qualifiers: Pressure injury location: buttock Pressure injury stage: unspecified pressure injury stage Laterality: unspecified laterality Qualified Code(s): L89.309 - Pressure ulcer of unspecified buttock, unspecified stage Code(s): L89.90 - Pressure ulcer of unspecified site, unspecified stage Status: Acute Assessment and Plan: Large decubitus ulcers on her buttocks. Appreciate Wound Care consult. Continue current dressing changes (6) Multiple sclerosis: Code(s): G35 - Multiple sclerosis Status: Acute Assessment and Plan: Patient has footdrop and appears to be bedbound. (7) Dementia: Qualifiers: Dementia type: unspecified type Dementia behavioral disturbance: without behavioral disturbance Qualified Code(s): F03.90 - Unspecified dementia without behavioral disturbance Code(s): F03.90 - Unspecified dementia without behavioral disturbance Status: Chronic Assessment and Plan: Patient is alert, pleasant and cooperative. She probably has behavioral disturbance; continue Remeron. Stable at this time (8) Essential (primary) hypertension: Onset Date: 12/07/18 Code(s): I10 - Essential (primary) hypertension Status: Acute Assessment and Plan: Patient's blood pressure was reviewed on 06/07 Blood pressure remaining stable. Not on medications at home for this. Will continue to monitor. (9) Microcytic anemia: Code(s): D50.9 - Iron deficiency anemia, unspecified Status: Acute Assessment and Plan: Patient appears to have a chronic anemia.
[2021-06-07] MEDS: DOCUSATE SODIUM 100 MG CAPSULE PO (20:18)
[2021-06-07] MEDS: MIRTAZAPINE 15 MG TABLET PO (20:18)
[2021-06-07 20:38] VITALS: BP 104/54; PULSE 103; RESP 18; TEMP 36.4; O2SAT 97
[2021-06-08 04:51] VITALS: BP 112/72; PULSE 93; RESP 16; TEMP 36.9; O2SAT 100
[2021-06-08] MEDS: DOCUSATE SODIUM 100 MG CAPSULE PO ×2 (08:22→20:24)
[2021-06-08] MEDS: PANTOPRAZOLE 40 MG TABLET PO ×2 (08:22→20:24)
[2021-06-08] MEDS: ENOXAPARIN 40 MG/0.4 ML SYRINGE SUB-Q (08:23)
[2021-06-08] MEDS: FERROUS SULFATE 324 MG TABLET PO ×2 (08:23→16:42)
[2021-06-08] MEDS: LACTULOSE ENEMA 200 GM/1,000 ML ENEMA RECTAL (09:40)
[2021-06-08] MEDS: LACTULOSE 20 GM/30 ML UDC PO ×3 (11:17→16:42)
--- NOTE | 2021-06-08 12:05 | PM.IMPN ---
Progress Note: A&P Assessment and Plan (1) Constipation by delayed colonic transit: Code(s): K59.01 - Slow transit constipation Status: Acute Assessment and Plan: Noted to have distended abdomen so stat KUB ordered showing large amount of gas and stool diffusely distending the colon and suggestive of constipation. Enema ordered with some stool output. Miralax BID scheduled started. Denies feeling nauseous and eating well. KUB yesterday morning again showing distended colon with large volume of stool but normal SB caliber, likely adynamic ileus and stool impaction. Barium enema ordered but not very therapeutic. Repeat enema last night not helpful. Colace added. Laculose enema with benefit today. Change miralax to lactulose. (2) Urinary tract infection: Qualifiers: Hematuria presence: without hematuria Urinary tract infection type: site unspecified Qualified Code(s): N39.0 - Urinary tract infection, site not specified Code(s): N39.0 - Urinary tract infection, site not specified Status: Acute Assessment and Plan: Complicated UTI with history of chronic Santoro catheter. Sent by her doctor's office for urinary tract infection. Santoro catheter changed on 05/22/2021 at the urologist office. UCx 05/24 growing Pseudomonas resistant to fluoroquinolones and imipenem. She was started on IV cefepime and admitted to the hospital with a consult to Urology. She completed Cefepime. Patient had a 102.7F 06/02/21 but none since. Blood cultures no growth. UCx 06/04 negative. Ditropan probably being used for bladder spasms but held since this can cause tachycardia and constipation. (3) Fever: Code(s): R50.9 - Fever, unspecified Status: Acute Assessment and Plan: Patient found to have a fever 06/02/21 102.7F while on Cefepime. CXR showed small lung volumes with airspace opacities in right mid and lower lung zones and left upper and lower lung zones, consistent with atelectasis versus pneumonia. She is not coughing and 100% on RA. Blood cultures no growth. UCx 12/28 negative. Remaining stable off abx. Continue to monitor. (4) Heel ulcer: Code(s): L97.409 - Non-pressure chronic ulcer of unspecified heel and midfoot with unspecified severity Status: Acute Assessment and Plan: Wound care evaluated and made recommendations. Continue waffle boots. Continue daily dressing changes. (5) Decubitus ulcer: Qualifiers: Pressure injury location: buttock Pressure injury stage: unspecified pressure injury stage Laterality: unspecified laterality Qualified Code(s): L89.309 - Pressure ulcer of unspecified buttock, unspecified stage Code(s): L89.90 - Pressure ulcer of unspecified site, unspecified stage Status: Acute Assessment and Plan: Large decubitus ulcers on her buttocks. Appreciate Wound Care consult. Continue current dressing changes (6) Multiple sclerosis: Code(s): G35 - Multiple sclerosis Status: Acute Assessment and Plan: Patient has footdrop and appears to be bedbound. (7) Dementia: Qualifiers: Dementia type: unspecified type Dementia behavioral disturbance: without behavioral disturbance Qualified Code(s): F03.90 - Unspecified dementia without behavioral disturbance Code(s): F03.90 - Unspecified dementia without behavioral disturbance Status: Chronic Assessment and Plan: Patient is alert, pleasant and cooperative. She probably has behavioral disturbance; continue Remeron. Stable at this time (8) Essential (primary) hypertension: Onset Date: 12/07/18 Code(s): I10 - Essential (primary) hypertension Status: Acute Assessment and Plan: Patient's blood pressure was reviewed on 06/08 Blood pressure remaining stable. Not on medications at home for this. Will continue to monitor. (9) Microcytic anemia: Code(s): D50.9 - Iron deficiency a
[2021-06-08] MEDS: COLLAGENASE OINT 30 GM TUBE 1 APPLIC TOPICAL (13:34)
[2021-06-08] MEDS: EUCERIN CREAM 120 GM JAR 1 APPLIC TOPICAL (13:35)
[2021-06-08 14:49] VITALS: BP 116/79; PULSE 84; RESP 20; TEMP 36.4; O2SAT 100
[2021-06-08 18:36] VITALS: BP 102/82; PULSE 95; RESP 14; TEMP 36.5; O2SAT 100
[2021-06-08 20:01] VITALS: BP 122/73; PULSE 92; RESP 18; TEMP 36.2; O2SAT 98
[2021-06-08] MEDS: MIRTAZAPINE 15 MG TABLET PO (20:24)
[2021-06-08 23:19] VITALS: BP 119/81; PULSE 103; RESP 18; TEMP 36.4; O2SAT 96
[2021-06-09] VITALS (7 sets, daily range): BP systolic 87–107; BP diastolic 57–75; PULSE 52–108; RESP 16–20; TEMP 35.7–37.4; O2SAT 99–100
[2021-06-09 06:25] LABS: Hemoglobin 9.1 g/dL (12.0-15.0); Mean Corpuscular HGB Conc 31.4 g/dl (32-36); Mean Corpuscular Hemoglobin 25.9 pg (26-34); Mean Corpuscular Volume 82.6 fl (80-100); Mean Platelet Volume 8.5 fl (7.4-10.4); Platelet Count Result 469 k/mm3 (150-375); Red Blood Count 3.51 M/mm3 (4.2-5.4); Red Cell Distribution Width 19.3 % (11.5-14.5); White Blood Count 7.2 K/mm3 (4.5-10.0)
[2021-06-09 06:34] LABS: Anion Gap 6 mmol/L (8-16); Blood Urea Nitrogen 16 mg/dL (7-17); Calcium 8.3 mg/dL (8.4-10.2); Carbon Dioxide 25 mmol/L (22-30); Chloride 108 mmol/L (98-107); Estimated CRCL calculation 56 ml/min; Estimated Glomerular Filt Rate > 60; Glucose 84 mg/dL (65-110); Potassium 3.9 mmol/L (3.4-5.0); Sodium 139 mmol/L (137-145)
[2021-06-09] MEDS: COLLAGENASE OINT 30 GM TUBE 1 APPLIC TOPICAL (08:45)
[2021-06-09] MEDS: ENOXAPARIN 40 MG/0.4 ML SYRINGE SUB-Q (08:45)
[2021-06-09] MEDS: FERROUS SULFATE 324 MG TABLET PO ×2 (08:45→16:47)
[2021-06-09] MEDS: DOCUSATE SODIUM 100 MG CAPSULE PO ×2 (08:45→20:38)
[2021-06-09] MEDS: LACTULOSE 20 GM/30 ML UDC PO ×3 (08:45→16:46)
[2021-06-09] MEDS: EUCERIN CREAM 120 GM JAR 1 APPLIC TOPICAL (08:46)
[2021-06-09] MEDS: PANTOPRAZOLE 40 MG TABLET PO ×2 (08:46→20:38)
--- NOTE | 2021-06-09 10:51 | P.PNIM_ITS ---
Progress Note: A&P Assessment and Plan (1) Constipation by delayed colonic transit: Code(s): K59.01 - Slow transit constipation Status: Acute Assessment and Plan: Noted to have distended abdomen so stat KUB ordered showing large amount of gas and stool diffusely distending the colon and suggestive of constipation. Enema ordered with some stool output. Miralax BID scheduled started. Denies feeling nauseous and eating well. KUB yesterday morning again showing distended colon with large volume of stool but normal SB caliber, likely adynamic ileus and stool impaction. Barium enema ordered but not very therapeutic. Repeat enema last night not helpful. Colace added. Laculose enema with benefit today. Change miralax to lactulose. (2) Urinary tract infection: Qualifiers: Hematuria presence: without hematuria Urinary tract infection type: site unspecified Qualified Code(s): N39.0 - Urinary tract infection, site not specified Code(s): N39.0 - Urinary tract infection, site not specified Status: Acute Assessment and Plan: Complicated UTI with history of chronic Santoro catheter. Sent by her doctor's office for urinary tract infection. Santoro catheter changed on 05/22/2021 at the urologist office. UCx 05/24 growing Pseudomonas resistant to fluoroquinolones and imipenem. She was started on IV cefepime and admitted to the hospital with a consult to Urology. She completed Cefepime. Patient had a 102.7F 06/02/21 but none since. Blood cultures no growth. UCx 06/04 negative. Ditropan probably being used for bladder spasms but held since this can cause tachycardia and constipation. (3) Fever: Code(s): R50.9 - Fever, unspecified Status: Acute Assessment and Plan: Patient found to have a fever 06/02/21 102.7F while on Cefepime. CXR showed small lung volumes with airspace opacities in right mid and lower lung zones and left upper and lower lung zones, consistent with atelectasis versus pneumonia. She is not coughing and 100% on RA. Blood cultures no growth. UCx 12/28 negative. Remaining stable off abx. Continue to monitor. (4) Heel ulcer: Code(s): L97.409 - Non-pressure chronic ulcer of unspecified heel and midfoot with unspecified severity Status: Acute Assessment and Plan: Wound care evaluated and made recommendations. Continue waffle boots. Continue daily dressing changes. (5) Decubitus ulcer: Qualifiers: Pressure injury location: buttock Pressure injury stage: unspecified pressure injury stage Laterality: unspecified laterality Qualified Code(s): L89.309 - Pressure ulcer of unspecified buttock, unspecified stage Code(s): L89.90 - Pressure ulcer of unspecified site, unspecified stage Status: Acute Assessment and Plan: Large decubitus ulcers on her buttocks. Appreciate Wound Care consult. Continue current dressing changes (6) Multiple sclerosis: Code(s): G35 - Multiple sclerosis Status: Acute Assessment and Plan: Patient has footdrop and appears to be bedbound. (7) Dementia: Qualifiers: Dementia type: unspecified type Dementia behavioral disturbance: without behavioral disturbance Qualified Code(s): F03.90 - Unspecified dementia without behavioral disturbance Code(s): F03.90 - Unspecified dementia without behavioral disturbance Status: Chronic Assessment and Plan: Patient is alert, pleasant and cooperative. She probably has behavioral disturbance; continue Remeron. Stable at this time (8) Essential (primary) hypertensi
[2021-06-09] MEDS: MIRTAZAPINE 15 MG TABLET PO (20:38)
[2021-06-10 01:52] VITALS: BP 103/68; PULSE 97; RESP 16; TEMP 36.6; O2SAT 100
[2021-06-10 05:12] VITALS: BP 111/72; PULSE 60; RESP 16; TEMP 36.1; O2SAT 100
[2021-06-10] MEDS: FERROUS SULFATE 324 MG TABLET PO ×2 (08:34→17:49)
[2021-06-10] MEDS: LACTULOSE 20 GM/30 ML UDC PO ×3 (08:34→17:49)
[2021-06-10] MEDS: DOCUSATE SODIUM 100 MG CAPSULE PO ×2 (08:34→20:05)
[2021-06-10] MEDS: PANTOPRAZOLE 40 MG TABLET PO ×2 (08:34→20:05)
[2021-06-10] MEDS: MAGNESIUM OXIDE 400 MG TABLET PO (08:34)
[2021-06-10] MEDS: COLLAGENASE OINT 30 GM TUBE 1 APPLIC TOPICAL (08:35)
[2021-06-10] MEDS: EUCERIN CREAM 120 GM JAR 1 APPLIC TOPICAL (08:35)
[2021-06-10] MEDS: ENOXAPARIN 40 MG/0.4 ML SYRINGE SUB-Q (08:35)
[2021-06-10 10:40] VITALS: BP 96/58; PULSE 113; RESP 24; TEMP 36.3; O2SAT 99
--- NOTE | 2021-06-10 13:03 | PM.IMPN ---
Progress Note: A&P Assessment and Plan (1) Constipation by delayed colonic transit: Code(s): K59.01 - Slow transit constipation Status: Acute Assessment and Plan: Improved. Patient was previously noted to have distended abdomen so stat KUB ordered showing large amount of gas and stool diffusely distending the colon and suggestive of constipation. Enema ordered with some stool output. Miralax BID scheduled started. Denies feeling nauseous and eating well. KUB yesterday morning again showing distended colon with large volume of stool but normal SB caliber, likely adynamic ileus and stool impaction. Barium enema ordered but not very therapeutic. Repeat enema last night not helpful. Colace added. Laculose enema with good effect.. (2) Urinary tract infection: Qualifiers: Hematuria presence: without hematuria Urinary tract infection type: site unspecified Qualified Code(s): N39.0 - Urinary tract infection, site not specified Code(s): N39.0 - Urinary tract infection, site not specified Status: Acute Assessment and Plan: Resolved complicated UTI with history of chronic Santoro catheter. Sent by her doctor's office for urinary tract infection. Santoro catheter changed on 05/22/2021 at the urologist office. UCx 05/24 growing Pseudomonas resistant to fluoroquinolones and imipenem. She was started on IV cefepime and admitted to the hospital with a consult to Urology. She completed Cefepime. Patient had a 102.7F 06/02/21 but none since. Blood cultures no growth. UCx 06/04 negative. Ditropan probably being used for bladder spasms but held since this can cause tachycardia and constipation. (3) Fever: Code(s): R50.9 - Fever, unspecified Status: Acute Assessment and Plan: Patient found to have a fever 06/02/21 102.7F while on Cefepime. CXR showed small lung volumes with airspace opacities in right mid and lower lung zones and left upper and lower lung zones, consistent with atelectasis versus pneumonia. She is not coughing and 100% on RA. Blood cultures no growth. UCx 12/28 negative. Remaining stable off abx. Continue to monitor. (4) Heel ulcer: Code(s): L97.409 - Non-pressure chronic ulcer of unspecified heel and midfoot with unspecified severity Status: Acute Assessment and Plan: Wound care evaluated and made recommendations. Continue waffle boots. Continue daily dressing changes. (5) Decubitus ulcer: Qualifiers: Pressure injury location: buttock Pressure injury stage: unspecified pressure injury stage Laterality: unspecified laterality Qualified Code(s): L89.309 - Pressure ulcer of unspecified buttock, unspecified stage Code(s): L89.90 - Pressure ulcer of unspecified site, unspecified stage Status: Acute Assessment and Plan: Large decubitus ulcers on her buttocks. Appreciate Wound Care consult. Continue current dressing changes (6) Multiple sclerosis: Code(s): G35 - Multiple sclerosis Status: Acute Assessment and Plan: Patient has footdrop and appears to be bedbound. (7) Dementia: Qualifiers: Dementia type: unspecified type Dementia behavioral disturbance: without behavioral disturbance Qualified Code(s): F03.90 - Unspecified dementia without behavioral disturbance Code(s): F03.90 - Unspecified dementia without behavioral disturbance Status: Chronic Assessment and Plan: Patient is alert, pleasant and cooperative. She probably has behavioral disturbance; continue Remeron. Stable at this time (8) Essential (primary) hypertension: Onset Date: 12/07/18 Code(s): I10 - Essential (primary) hypertension Status: Acute Assessment and Plan: Patient's blood pressure was reviewed on 06/08 Blood pressure remaining stable. Not on medications at home for this. Will continue to monitor. (9) Microcytic anemia: Code(s): D50.9 - Iron
--- NOTE | 2021-06-10 13:15 | PCNFU ---
Nutrition Follow-Up Complete: Increased Protein needs as related to wounds as evidenced by reported pressue ulcers. goal: Adequate Intake of at least 75% of meals/supplements Patient is meeting goal. No new goal at this time. Pt current nutrition is Soft and Bite Sized, Level 6/Heart Healthy with Glucerna TID and Keith BID. Last recorded weight is 42.8 kg, no new weight to report. Bowel Motility:+BM reported 1/2 Labs Reviewed:No new labs today. Meds Noted:Lovenox, Protonix, Remeron, Mag Ox, Lactulose, Ferrous Sulfate Skin: left buttock pressure ulcer, sacrum pressure ulcer, right buttock pressure ulcer Additional Notes: Patient remains on Soft and Bite Sized, Level 6/Heart Healthy diet. Oral Intake greater than 75% of meals. Dietary Supplements of Glucerna TID are providing an additional 220 kcals and 10 gms protein and Keith BID providing an additional 90 kcals and 2.5 gms protein. Agree with diet orders. Monitoring: RD will monitor every 5 days.
[2021-06-10 15:26] VITALS: BP 101/59; PULSE 98; RESP 20; TEMP 36.2; O2SAT 100
[2021-06-10 20:00] VITALS: PULSE 100; RESP 14; O2SAT 100
[2021-06-10] MEDS: MIRTAZAPINE 15 MG TABLET PO (20:05)
[2021-06-10 21:12] VITALS: BP 98/62; PULSE 100; RESP 14; TEMP 37.3; O2SAT 100
[2021-06-11 06:00] VITALS: BP 115/73; PULSE 93; RESP 14; TEMP 37.3; O2SAT 100
[2021-06-11] MEDS: FERROUS SULFATE 324 MG TABLET PO (08:09)
[2021-06-11] MEDS: DOCUSATE SODIUM 100 MG CAPSULE PO (08:09)
[2021-06-11] MEDS: LACTULOSE 20 GM/30 ML UDC PO (08:09)
[2021-06-11] MEDS: PANTOPRAZOLE 40 MG TABLET PO (08:10)
[2021-06-11] MEDS: MAGNESIUM OXIDE 400 MG TABLET PO (08:10)
[2021-06-11] MEDS: ENOXAPARIN 40 MG/0.4 ML SYRINGE SUB-Q (08:10)
--- NOTE | 2021-06-11 08:54 | PM.DS ---
DS: Admitting Diagnosis Discharge Date 06/11/2021 Admitting Diagnosis UTI DS: Discharge Diagnosis Discharge Diagnosis (1) Constipation by delayed colonic transit: Code(s): K59.01 - Slow transit constipation Status: Acute Assessment and Plan: Improved. Patient was previously noted to have distended abdomen so stat KUB ordered showing large amount of gas and stool diffusely distending the colon and suggestive of constipation. Enema ordered with some stool output. Miralax BID scheduled started. Denies feeling nauseous and eating well. KUB yesterday morning again showing distended colon with large volume of stool but normal SB caliber, likely adynamic ileus and stool impaction. Barium enema ordered but not very therapeutic. Repeat enema last night not helpful. Colace added. Laculose enema with good effect.. (2) Urinary tract infection: Qualifiers: Hematuria presence: without hematuria Urinary tract infection type: site unspecified Qualified Code(s): N39.0 - Urinary tract infection, site not specified Code(s): N39.0 - Urinary tract infection, site not specified Status: Acute Assessment and Plan: Resolved complicated UTI with history of chronic Santoro catheter. Sent by her doctor's office for urinary tract infection. Santoro catheter changed on 05/22/2021 at the urologist office. UCx 05/24 growing Pseudomonas resistant to fluoroquinolones and imipenem. She was started on IV cefepime and admitted to the hospital with a consult to Urology. She completed Cefepime. Patient had a 102.7F 06/02/21 but none since. Blood cultures no growth. UCx 12/28 negative. Ditropan probably being used for bladder spasms but held since this can cause tachycardia and constipation. (3) Fever: Code(s): R50.9 - Fever, unspecified Status: Acute Assessment and Plan: Patient found to have a fever 06/02/21 102.7F while on Cefepime. CXR showed small lung volumes with airspace opacities in right mid and lower lung zones and left upper and lower lung zones, consistent with atelectasis versus pneumonia. She is not coughing and 100% on RA. Blood cultures no growth. UCx 12/28 negative. Remaining stable off abx. Continue to monitor. (4) Heel ulcer: Code(s): L97.409 - Non-pressure chronic ulcer of unspecified heel and midfoot with unspecified severity Status: Acute Assessment and Plan: Wound care evaluated and made recommendations. Continue waffle boots. Continue daily dressing changes. (5) Decubitus ulcer: Qualifiers: Laterality: unspecified laterality Pressure injury location: buttock Pressure injury stage: unspecified pressure injury stage Qualified Code(s): L89.309 - Pressure ulcer of unspecified buttock, unspecified stage Code(s): L89.90 - Pressure ulcer of unspecified site, unspecified stage Status: Acute Assessment and Plan: Large decubitus ulcers on her buttocks. Appreciate Wound Care consult. Continue current dressing changes (6) Multiple sclerosis: Code(s): G35 - Multiple sclerosis Status: Acute Assessment and Plan: Patient has footdrop and appears to be bedbound. (7) Dementia: Qualifiers: Dementia behavioral disturbance: without behavioral disturbance Dementia type: unspecified type Qualified Code(s): F03.90 - Unspecified dementia without behavioral disturbance Code(s): F03.90 - Unspecified dementia without behavioral disturbance Status: Chronic Assessment and Plan: Patient is alert, pleasant and cooperative. She probably has behavioral disturbance; continue Remeron. Stable at this time (8) Essential (primary) hypertension: Onset Date: 12/07/18 Code(s): I10 - Essential (primary) hypertension Status: Acute Assessment and Plan: Patient's blood pressure was reviewed on 06/08 Blood pressure remaining stable. Not on medications at home for this.
[2021-06-11] MEDS: COLLAGENASE OINT 30 GM TUBE 1 APPLIC TOPICAL (11:40)
[2021-06-11] MEDS: EUCERIN CREAM 120 GM JAR 1 APPLIC TOPICAL (11:40)
[2021-06-11 12:46] VITALS: BP 102/68; PULSE 107; RESP 16; TEMP 37.2; O2SAT 99
== END 2021-06-11 13:05 | disposition home or self-care (01) | DRG 193 ==
LOC: ANHED 13:12 → ANH3MED 18:07
PROVIDERS: Nurse Practitioner; Physician Assistant; Admitting Provider Internal Medicine; Emergency Provider Emergency Medicine; PCP Internal Medicine; Visit Provider Internal Medicine
DX: J18.9 Pneumonia, unspecified organism (principal); L89.623 Pressure ulcer of left heel, stage 3; L89.323 Pressure ulcer of left buttock, stage 3; F03.91 Unspecified dementia, unspecified severity, with behavioral disturbance; Z16.24 Resistance to multiple antibiotics; R64 Cachexia; Z68.1 Body mass index [BMI] 19.9 or less, adult; K56.0 Paralytic ileus; N32.89 Other specified disorders of bladder; N31.9 Neuromuscular dysfunction of bladder, unspecified; B96.5 Pseudomonas (aeruginosa) (mallei) (pseudomallei) as the cause of diseases classified elsewhere; Z23 Encounter for immunization; K59.01 Slow transit constipation; L89.319 Pressure ulcer of right buttock, unspecified stage; G35 Multiple sclerosis; D50.9 Iron deficiency anemia, unspecified; I10 Essential (primary) hypertension; M48.00 Spinal stenosis, site unspecified; R91.1 Solitary pulmonary nodule; E78.5 Hyperlipidemia, unspecified; D63.8 Anemia in other chronic diseases classified elsewhere; Z86.718 Personal history of other venous thrombosis and embolism; Z90.710 Acquired absence of both cervix and uterus; Z86.73 Personal history of transient ischemic attack (TIA), and cerebral infarction without residual deficits; Z22.39 Carrier of other specified bacterial diseases
CPT/HCPCS: 36415; 36430; 71045; 74018; 74019; 74270; 80048; 80053; 80076; 81001; 82274; 82607; 82728; 82746; 83540; 83550; 83605; 83615; 83735; 84100; 84443; 84466; 85014; 85018; 85025; 85027; 86140; 86850; 86900; 86901; 86920; 87040; 87070; 87075; 87077; 87086; 87088; 87186; 87205; 90471; 90653; 96365; 96366; 96367; 99285; A9270; C9113; G0008; G0378; J0692; J0696; J1650; J1756; J7040; J7050; J7120; P9016

== ENCOUNTER 2021-10-14 10:21 | Outpatient (NON) | payer MEDICARE, SELFPAY ==
[2021-10-14 10:40] LABS: Appearance Urine Turbid (Clear); Bilirubin Urine 1+ (Negative); Blood Urine 3+ (Negative); Color Urine Yellow (Yellow); Glucose Urine UA Negative (Negative); Ketones Urine Negative (Negative); Leukocyte Esterase Ur 3+ LEU/UL (Negative); Nitrate Urine Negative (Negative); Protein Urine 2+ mg/dL (Negative); Specific Grav Ur >= 1.030 (1.001-1.035); Urobilinogen Urine 0.2 mg/dL (<2.0)
[2021-10-14 10:44] LABS: Bacteria Urine 1+ /hpf; Mucus Urine Few /lpf; RBC Urine 51-75 /hpf (0-2); Squamous Epithelial Cell Urine Many /hpf (Few); WBC Clumps Urine Present /HPF; WBC Urine >75 /hpf
[2021-10-14 10:53] LABS: Add Urine Microscopic? YES
== END 2021-10-14 10:22 | disposition home or self-care (01) ==
PROVIDERS: PCP Internal Medicine; Visit Provider Internal Medicine
DX: R30.0 Dysuria (principal); N39.0 Urinary tract infection, site not specified; G35 Multiple sclerosis; F03.90 Unspecified dementia, unspecified severity, without behavioral disturbance, psychotic disturbance, mood disturbance, and anxiety; N31.9 Neuromuscular dysfunction of bladder, unspecified; Z46.6 Encounter for fitting and adjustment of urinary device
CPT/HCPCS: 81001; 87077; 87086; 87186

== ENCOUNTER 2021-12-04 12:21 | Outpatient (NON) | payer MEDICARE, SELFPAY ==
[2021-12-04 12:55] LABS: Appearance Urine Cloudy (Clear); Bilirubin Urine 1+ (Negative); Blood Urine 3+ (Negative); Color Urine Yellow (Yellow); Glucose Urine UA Negative (Negative); Ketones Urine 2+ mg/dL (Negative); Leukocyte Esterase Ur 3+ LEU/UL (Negative); Nitrate Urine Negative (Negative); Protein Urine 3+ mg/dL (Negative); Specific Grav Ur 1.025 (1.001-1.035); Urobilinogen Urine 0.2 mg/dL (<2.0)
[2021-12-04 12:57] LABS: Bacteria Urine Trace /hpf; Mucus Urine Heavy /lpf; RBC Urine >75 /hpf (0-2); Squamous Epithelial Cell Urine Many /hpf (Few); WBC Clumps Urine Present /HPF; WBC Urine >75 /hpf
[2021-12-04 12:58] LABS: Add Urine Microscopic? YES
== END 2021-12-04 12:22 | disposition home or self-care (01) ==
LOC: HOME HLTH 12:22
PROVIDERS: PCP Internal Medicine; Visit Provider Internal Medicine
DX: N31.9 Neuromuscular dysfunction of bladder, unspecified (principal); G35 Multiple sclerosis; F03.90 Unspecified dementia, unspecified severity, without behavioral disturbance, psychotic disturbance, mood disturbance, and anxiety; Z51.81 Encounter for therapeutic drug level monitoring; Z79.899 Other long term (current) drug therapy
CPT/HCPCS: 81001; 87086; 87088

== ENCOUNTER 2021-12-11 11:40 | Outpatient (NON) | payer MEDICARE, SELFPAY ==
[2021-12-11 11:52] LABS: Basophils Absolute Auto 0.1 K/mm3 (0.0-0.1); Basophils Percent Auto 0.7 % (0.2-1.2); Eosinophils Absolute Auto 0.4 K/mm3 (0-0.3); Eosinophils Percent Auto 4.6 % (0-4.4); Hematocrit 35.6 % (37.0-47.0); Hemoglobin 10.3 g/dL (12.0-15.0); Immature Granulocyte Absolute 0.04 K/mm3 (0.00-0.031); Immature Granulocyte Percent A 0.5 % (0-0.5); Lymphocytes Absolute Auto 1.43 K/mm3 (0.9-3.2); Lymphocytes Percent Auto 16.9 % (18.3-44.2); Mean Corpuscular HGB Conc 28.9 g/dl (32-36); Mean Corpuscular Hemoglobin 26.5 pg (26-34); Mean Corpuscular Volume 91.5 fl (80-100); Monocytes Absolute Auto 0.4 K/mm3 (0.1-0.6); Neutrophils Absolute Auto 6.1 K/mm3 (1.3-6.7); Neutrophils Percent Auto 72.3 % (45.5-73.1); Platelet Count Result 573 k/mm3 (150-375); Red Blood Count 3.89 M/mm3 (4.2-5.4); Red Cell Distribution Width 16.9 % (11.5-14.5); White Blood Count 8.5 K/mm3 (4.5-10.0)
[2021-12-11 12:20] LABS: Iron 45 ug/dL (37-170)
[2021-12-11 12:23] LABS: Anisocytosis 1+ (NORMAL); Hypochromasia 1+ (NORMAL); Ovalocytes 1+ (NORMAL); Platelet Estimate Increased (Adequate)
[2021-12-11 12:29] LABS: Percent Iron Saturation 18 % (20-50)
[2021-12-11 12:36] LABS: Vitamin D 25 Hydroxy 16.3 ng/mL
== END 2021-12-11 11:41 | disposition home or self-care (01) ==
PROVIDERS: PCP Internal Medicine; Visit Provider Nurse Practitioner
DX: E55.9 Vitamin D deficiency, unspecified (principal); D64.9 Anemia, unspecified; E61.1 Iron deficiency
CPT/HCPCS: 36415; 82306; 83540; 83550; 85025

== ENCOUNTER 2022-03-05 11:37 | Outpatient (NON) | payer MEDICARE, SELFPAY ==
[2022-03-05 13:18] LABS: Bacteria Urine 4+ /hpf; RBC Urine >75 /hpf (0-2); Squamous Epithelial Cell Urine Many /hpf (Few); WBC Urine >75 /hpf
[2022-03-05 13:25] LABS: Add Urine Microscopic? YES
[2022-03-05 13:26] LABS: Appearance Urine Turbid (Clear); Bilirubin Urine Negative (Negative); Blood Urine 3+ (Negative); Color Urine Straw (Yellow); Glucose Urine UA Negative (Negative); Ketones Urine Negative (Negative); Leukocyte Esterase Ur 3+ LEU/UL (Negative); Nitrate Urine Negative (Negative); Protein Urine 1+ mg/dL (Negative); Specific Grav Ur 1.005 (1.001-1.035); Urobilinogen Urine 0.2 mg/dL (<2.0); pH Urine 8.5 (5.0-9.0)
[2022-03-05 13:27] LABS: Mucus Urine Moderate /lpf
== END 2022-03-05 11:38 | disposition home or self-care (01) ==
LOC: HOME HLTH 11:44
PROVIDERS: PCP Internal Medicine; Visit Provider Internal Medicine
DX: G35 Multiple sclerosis (principal); N31.9 Neuromuscular dysfunction of bladder, unspecified; F03.90 Unspecified dementia, unspecified severity, without behavioral disturbance, psychotic disturbance, mood disturbance, and anxiety; Z46.6 Encounter for fitting and adjustment of urinary device; N39.0 Urinary tract infection, site not specified
CPT/HCPCS: 81001; 87086; 87088

== ENCOUNTER 2022-04-28 10:30 | Outpatient (NON) | payer MEDICARE, SELFPAY ==
[2022-04-28 11:37] LABS: Add Urine Microscopic? NO
== END 2022-04-28 10:31 | disposition home or self-care (01) ==
PROVIDERS: PCP Internal Medicine; Visit Provider Internal Medicine
DX: N39.0 Urinary tract infection, site not specified (principal); N31.9 Neuromuscular dysfunction of bladder, unspecified; G35 Multiple sclerosis; F03.90 Unspecified dementia, unspecified severity, without behavioral disturbance, psychotic disturbance, mood disturbance, and anxiety; Z46.6 Encounter for fitting and adjustment of urinary device
CPT/HCPCS: 81003

== ENCOUNTER 2022-05-12 09:44 | Inpatient (IN) | payer MEDICARE, MEDICAID, SELFPAY ==
[2022-05-12] VITALS (22 sets, daily range): BP systolic 69–101; BP diastolic 55–69; PULSE 80–118; RESP 13–26; TEMP 36.2–36.6; O2SAT 92–100
--- NOTE | ~2022-05-12 | XR_ITS ---
XR chest 1V portable 05/12/2022 11:28 Indication: Altered mental status Procedure: AP portable chest Comparison: Comparison to multiple prior studies sequentially, with oldest reviewed study dated 03/09. Findings: Shallow inspiration with crowding of the pulmonary vessels. No focal air space disease, pul monary edema, pleural effusion or suspected pneumothorax. No acute osseous abnormality. Osteopenia. Impression: 1: No acute cardiopulmonary disease. Reviewed, dictated and finalized at location A. DARY APPRENTICE Impression: 1: No acute cardiopulmonary disease.
--- NOTE | ~2022-05-12 | XR_ITS ---
EXAMINATION: XR abdomen/kub 1V INDICATION: Constipation TECHNIQUE: Supine views of the abdomen were obtained on 2 radiographs. COMPARISON: 06/10/2021 FINDINGS: There is a large volume of stool throughout the colon. No free intraperitoneal gas is ident ified. There is elevation of the right hemidiaphragm. 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 There are phleboliths of the pelvis. IMPRESSION: 1. Constipation with large volume of colonic stool. Reviewed, dictated and finalized at location A. RDS MANAGEMENT SPECIALIST
--- NOTE | ~2022-05-12 | XR_ITS ---
XR abdomen/kub 1V 05/15/2022 17:50 Indication: Constipation Procedure: KUB Comparison: Comparison to multiple prior studies sequentially, with oldest reviewed study dated 06/2021. Findings: There is fecal impaction of the colon. Right femoral vascular catheter, likely in the IVC. Osteopenia. No acute osseous abnormality is seen. Impression: 1: Fecal impaction of the colon. Reviewed, dictated and finalized at location A. ENT MINISTRY PASTOR Impression: 1: Fecal impaction of the colon.
--- NOTE | ~2022-05-12 | US_ITS ---
EXAMINATION:US venous doppler LE BI INDICATION:Leg edema TECHNIQUE: Multiple grayscale, color flow and Doppler images of the bilateral lower extremity deep ve nous systems were obtained and reviewed. COMPARISON:08/30/2013 FINDINGS: The common femoral, superficial femoral and popliteal veins demonstrate normal respiratory variation, augmentation and compressibility. Color flow is also seen within the posterior tibial, pe roneal, greater saphenous and profunda veins. IMPRESSION: 1: No lower extremity deep venous thrombosis. Reviewed, dictated and finalized at location A. MENDER
--- NOTE | ~2022-05-12 | XR_ITS ---
XR chest 1V portable 05/13/2022 11:58 Indication: Hypoxemia. Procedure: AP portable chest Comparison: Comparison to multiple prior studies sequentially, with oldest reviewed study dated 10/2018. Findings: There is right perihilar and left basilar airspace disease. Heart size normal. There is dex troscoliosis. No pleural effusion or pneumothorax. There is osteopenia. Impression: 1: Right perihilar and left basilar airspace disease, compatible with pneumonia. Reviewed, dictated and finalized at location A. RVISOR ADVERTISING DISPATCH CLERKS Impression: 1: Right perihilar and left basilar airspace disease, compatible with pneumonia .
--- NOTE | ~2022-05-12 | XR_ITS ---
EXAMINATION: XR Abdomen PICC DATE: 05/13/2022 13:04 INDICATION: Femoral PICC line placement TECHNIQUE: Portable AP supine view of the abdomen and pelvis was obtained. COMPARISON: 05/12/2022 at 7:37 PM FINDINGS: Interval placement of a right femoral peripherally inserted central venous catheter (PICC) tip at th e mid inferior superior vena cava at the level of the inferior endplate of L2, likely just below the level of the renal veins. Again seen is a large amount of stool scattered throughout the colon consis tent with constipation. IMPRESSION: 1. Right femoral PICC line tip in the mid inferior vena cava. 2. Persistent large amount of colonic stool suggestive of constipation. Reviewed, dictated and finalized at location A. RAL ASSISTANT
--- NOTE | ~2022-05-12 | CT_ITS ---
EXAMINATION: CT brain wo con DATE: 05/13/2022 18:00 INDICATION: Altered mental status TECHNIQUE: Computed tomography (CT) of the head was performed without intravenous contrast. The dose- length product was 1210.67 mGy-cm. Automated exposure control and iterative reconstruction technique were employed. COMPARISON: CT dated 04/12/2019 FINDINGS: Generalized atrophy. There are scattered severe periventricular and subcortical white matte r changes, most likely related to small vessel ischemic disease (microangiopathy). There is intracran ial atherosclerosis. No acute infarction, hemorrhage, mass or mass effect. Paranasal sinuses and mast oids are pneumatized. No depressed skull fractures. IMPRESSION: 1. No acute intracranial abnormality. 2: Chronic age-related findings. Reviewed, dictated and finalized at location A. RT MOLDING OPERATOR
--- NOTE | 2022-05-12 09:47 | ECG_ITS ---
Measurements Intervals [place] Rate: 110 P: 70 LA: 115 QRS: 22 QRSD: 78 T: 49 QT: 340 QTc: 461 Interpretive Statements SINUS TACHYCARDIA WITH SHORT LA INTERVAL BASELINE ARTIFACT PRESENT COMPARED TO ECG 04/13/2020 15:07:03 SINUS TACHYCARDIA NOW PRESENT Electronically Signed On 05-12-2022 11:26:02 HEAD CHEF by Juli Gibbons M.D.
--- NOTE | 2022-05-12 09:59 | ED.AMS ---
HPI - Altered Mental Status General Chief Complaint: Altered Mental Status Stated Complaint: ams, possible infection Time Seen by Provider: 05/12/22 09:46 History of Present Illness HPI narrative: Pt presents from home by EMS for altered mental status. Pt is unresponsive to verbal commands and per EMS history from daughter is normally alert and oriented times 3. Pt not able to provide history. Related Data Home Medications Medication Instructions Recorded Confirmed melatonin 5 mg capsule 5 mg PO PRN PRN Sleep 11/27/21 05/12/22 Allergies Allergy/AdvReac Type Severity Reaction Status Date / Time No Known Allergies Allergy Verified 05/12/22 10:05 Review of Systems Review of Systems: ROS unobtainable: Yes unobtainable due to mental status PMFSH Past Medical History Medical History (Updated 05/12/22 @ 19:09 by Heaven Mccray PA-C) Cerebrovascular accident Chronic anemia Constipation Deep venous thrombosis (08/2013) Treated with Xarelto. Dementia Hyperlipidemia Multiple sclerosis Neurogenic bladder Indwelling [place] catheter. Pulmonary nodule 1.9 centimeter left lower lobe lung mass noted on imaging in January 2014. Subsequent chest CT failed to demonstrate a nodule. Spinal stenosis Surgical History Surgical History (Updated 05/12/22 @ 18:59 by Heaven Mccray PA-C) History of hysterectomy History of tubal ligation Status post debridement (04/2019) Excisional debridement of sacral ulcer. Family History Family History Daughter Hypertension Social History Social History (Updated 05/12/22 @ 19:00 by Heaven Mccray PA-C) Social History: The patient lives in [place] with her daughter and son-in-law. No alcohol, tobacco, or illicit substance use. Surrogate decision maker: Fior Kaye, daughter. Code status: Full code. Lack of Transportation: No Lack of Food: Never True Current Housing: I Have Housing Concerned About Future Housing: No Difficulty Paying Gas/Electric Bills: No Difficulty Paying for Meds: No Currently Unemployed: No Education: High School Diploma/GED Difficulty w/ Childcare or Family Care: No Spiritual care concerns: No Agree to blood products: Yes Exam Const: General: no acute distress Nutritional Appearance: thin Limitations: altered mental status (not answering questions or responding to verbal commands.) HENMT: Head: normal to inspection Eyes: Conjunctivae: conjunctivae normal EOM: EOMs intact bilaterally Neck: Neck: normal visual inspection and no meningeal signs Resp: Effort & Inspection: normal respiratory effort Auscultation: clear to auscultation bilaterally Cardio: Rate: regular rate Rhythm: regular rhythm GI: GI Palp: Yes Soft to palpation and No Tenderness to palpation present (GI) Auscultation: normal bowel sounds Skin: General skin exam: normal color Rashes: no rashes Neuro: Other: unresponsive Extrem: General: normal to inspection and no clubbing, cyanosis or edema Psych: Other: unresponsive Course Course Emergency Course: pt assumed to be septic on arrival with altered mental status and purulent urine in [place]. Antibiotics started and pt started on 30mg/kg bolus until sodium came back and then rate slowed. Pt normally runs SBP in 80's and 90's. discusseed with [place] admit to IMU Vital Signs Vital signs: Vital Signs Temperature 97.9 F 05/12/22 09:50 Pulse Rate 113 H 05/12/22 09:50 Respiratory Rate 26 H 05/12/22 09:50 Blood Pressure 75/57 L 05/12/22 09:50 Pulse Oximetry 98 05/12/22 09:50 Oxygen Delivery Room Air 05/12/22 09:50 Temperature 97.2 F L 05/12/22 18:23 Pulse Rate 82 05/12/22 18:23 Respiratory Rate 24 H 05/12/22 18:23 Blood Pressure 83/61 L 05/12/22 18:23 Pulse Oximetry 96 05/12/22 18:23 Oxygen Delivery Room Air 05/12/22 09:50 MDM - Altered Mental Status Differ
[2022-05-12 10:42] LABS: Add Urine Microscopic? YES; Appearance Urine Turbid (Clear); Bilirubin Urine 1+ (Negative); Blood Urine 1+ (Negative); Color Urine Brown (Yellow); Glucose Urine UA Negative (Negative); Ketones Urine Trace mg/dL (Negative); Leukocyte Esterase Ur 3+ LEU/UL (Negative); Nitrate Urine Negative (Negative); Protein Urine 3+ mg/dL (Negative); pH Urine >=9.0 (5.0-9.0)
[2022-05-12 11:14] LABS: Bacteria Urine 4+ /hpf; Mucus Urine Rare /lpf; RBC Urine 51-75 /hpf (0-2); Squamous Epithelial Cell Urine Few /hpf (Few); WBC Urine >75 /hpf
[2022-05-12 11:32] LABS: Basophils Absolute Auto 0.1 K/mm3 (0.0-0.1); Basophils Percent Auto 0.4 % (0.2-1.2); Hematocrit 28.1 % (37.0-47.0); Hemoglobin 7.8 g/dL (12.0-15.0); Immature Granulocyte Percent A 0.7 % (0-0.5); Lymphocytes Absolute Auto 0.99 K/mm3 (0.9-3.2); Lymphocytes Percent Auto 7.2 % (18.3-44.2); Mean Corpuscular HGB Conc 27.8 g/dl (32-36); Mean Corpuscular Hemoglobin 27.4 pg (26-34); Mean Corpuscular Volume 98.6 fl (80-100); Mean Platelet Volume 12.7 fl (7.4-10.4); Monocytes Absolute Auto 0.4 K/mm3 (0.1-0.6); Monocytes Percent Auto 2.7 % (2.6-8.5); Neutrophils Absolute Auto 12.3 K/mm3 (1.3-6.7); Nucleated Red Blood Cells Absolute Auto 0.1 K/mm3 (0.0-0.012); Nucleated Red Blood Cells Perc 0.6 % (0.0-0.2); Platelet Count Result 230 k/mm3 (150-375); Red Blood Count 2.85 M/mm3 (4.2-5.4); Red Cell Distribution Width 19.8 % (11.5-14.5); White Blood Count 13.8 K/mm3 (4.5-10.0)
[2022-05-12 11:40] LABS: Lactic Acid Reflex 1.8 mmol/L (0.7-2.0)
[2022-05-12 11:47] LABS: Alanine Aminotransferase 22 U/L (6-35); Albumin Level 3.2 g/dL (3.5-5.1); Alkaline Phosphatase 123 U/L (38-126); Anion Gap 10 mmol/L (8-16); Aspartate Amino Transferase 23 U/L (14-36); Bilirubin,Total 0.4 mg/dL (0.2-1.3); Blood Urea Nitrogen 80 mg/dL (7-17); CRP 6.3 mg/dL (<1.0); Calcium 8.1 mg/dL (8.4-10.2); Carbon Dioxide 19 mmol/L (22-30); Chloride 154 mmol/L (98-107); Estimated CRCL calculation 12 ml/min; Estimated Glomerular Filt Rate 23; Glucose 151 mg/dL (65-110); Potassium 4.1 mmol/L (3.4-5.0); Sodium 183 mmol/L (137-145)
[2022-05-12 11:59] LABS: Large Platelets Present; Ovalocytes 1+ (NORMAL); Platelet Estimate Adequate (Adequate); Target Cells 1+ (NORMAL)
[2022-05-12 12:00] LABS: INR 1.5; Prothrombin Time 17.2 Seconds (11.1-14.7); Schistocytes None Seen (NORMAL)
[2022-05-12 12:01] LABS: Partial Thromboplastin Time 32.1 SECONDS (22.3-36.8)
[2022-05-12 12:23] LABS: Influenza A QL RT-PCR Negative (Negative); Influenza B QL RT-PCR Negative (Negative); RSV RNA, RT-PCR Negative (Negative); SARS-CoV-2 RNA PCR Positive
--- NOTE | 2022-05-12 13:20 | PM.IMHP ---
H&P: HPI History of Present Illness Date/Time: 05/12/22 13:20 Chief Complaint: Altered mental status. Narrative: This is a 76-year-old female with history of multiple sclerosis, stroke, dementia, neurogenic bladder with indwelling Santoro catheter, chronic anemia, and history of DVT who presented to the emergency department via EMS from home for evaluation of altered mental status. The patient is bedbound and is unable to walk and her daughter and other family members are her 24 caretakers; at times they have home health as well. At baseline the patient is interactive but does not talk much. She eats a softer diet and is supposed to be on nectar thickened liquids however daughter admits that she is not really like to drink much, likely due to the texture. Over the last couple of days she has acted a bit different than usual however this morning she was altered and not responsive and she was brought in for evaluation. On arrival to the emergency department her blood pressure was 75/57 and it has remained soft though mean arterial pressures have been consistently above 65. Per the patient's daughter's report, her blood pressure is typically between 80/40 to 90/50. Labs were significant for a sodium of 183, chloride 154, potassium 4.1, BUN 80, creatinine 2.50. She is being admitted in this setting for cautious IV fluid rehydration. Incidentally she tested positive for COVID though she has not shown any symptoms and family members have also been asymptomatic. Review of Systems Review of Systems: Unable to obtain given clinical condition as above. [facility] Past Medical History Medical History (Updated 05/12/22 @ 19:09 by Heaven Mccray PA-C) Cerebrovascular accident Chronic anemia Constipation Deep venous thrombosis (08/2013) Treated with Xarelto. Dementia Hyperlipidemia Multiple sclerosis Neurogenic bladder Indwelling Santoro catheter. Pulmonary nodule 1.9 centimeter left lower lobe lung mass noted on imaging in January 2014. Subsequent chest CT failed to demonstrate a nodule. Spinal stenosis Surgical History Surgical History (Updated 05/12/22 @ 18:59 by Heaven Mccray PA-C) History of hysterectomy History of tubal ligation Status post debridement (04/2019) Excisional debridement of sacral ulcer. Family History Family History Daughter Hypertension Social History Social History (Updated 05/12/22 @ 19:00 by Heaven Mccray PA-C) Social History: The patient lives in [place] with her daughter and son-in-law. No alcohol, tobacco, or illicit substance use. Surrogate decision maker: Fior Kaye, daughter. Code status: Full code. Lack of Transportation: No Lack of Food: Never True Current Housing: I Have Housing Concerned About Future Housing: No Difficulty Paying Gas/Electric Bills: No Difficulty Paying for Meds: No Currently Unemployed: No Education: High School Diploma/GED Difficulty w/ Childcare or Family Care: No Spiritual care concerns: No Agree to blood products: Yes Meds Home Medications and Allergies Home Medications Medication Instructions Recorded Confirmed Type lactulose 20 gram/30 mL oral 20 g (30 mL) PO TID #3,350 mL 06/11/21 05/12/22 Rx solution mirtazapine 15 mg tablet 15 mg PO HS #90 tabs 07/31/21 05/12/22 Rx melatonin 5 mg capsule 5 mg PO PRN PRN Sleep 11/27/21 05/12/22 History oxybutynin chloride 5 mg tablet 10 mg PO DAILY #60 tabs 04/03/22 05/12/22 Rx Allergies Allergy/AdvReac Type Severity Reaction Status Date / Time No Known Allergies Allergy Verified 05/12/22 10:05 Vital Signs Vital Signs - 24 hr 05/12/22 09:50 05/12/22 10:04 Temperature 97.9 F Pulse Rate 113 H 109 H Respiratory Rate 26 H Blood Pressure 75/57 L Pulse Oximetry 98 Oxygen Delivery Room Air Exam Narrative: General: Thin, frail, acutely ill-appearing elderly female in the semi-[place] p
[2022-05-12] MEDS: SODIUM CHLORIDE 0.9% IV 1,000 ML 125 ML IV CONT ×2 (13:21→21:27)
--- NOTE | 2022-05-12 13:21 | PC.NURSE ---
Pt had 1240ml of bolus fluids.
[2022-05-12 18:05] LABS: Anion Gap 9 mmol/L (8-16); Blood Urea Nitrogen 83 mg/dL (7-17); Calcium 7.9 mg/dL (8.4-10.2); Carbon Dioxide 19 mmol/L (22-30); Chloride 150 mmol/L (98-107); Estimated CRCL calculation 12 ml/min; Estimated Glomerular Filt Rate 24; Glucose 107 mg/dL (65-110); Potassium 3.7 mmol/L (3.4-5.0); Sodium 178 mmol/L (137-145)
--- NOTE | 2022-05-12 19:18 | ADMGEN ---
This patient, Jessica Ann, was admitted to IMU Room 231-01. Patient/family oriented to hospital policies and general routines including ID bracelet, bed and alarms, visiting hours, pain management, procedures, bathroom and other care routines, personal items, smoking policy, room service/diet, and visiting hours. Information on how to activate the Rapid Response Team has been discussed. Patient/Family are encouraged to report perceived risks to care and to ask questions if they do not understand what they are told or what they should do.
[2022-05-12 20:42] LABS: Sodium 177 mmol/L (137-145)
[2022-05-12 23:29] LABS: Iron 51 ug/dL (37-170); Percent Iron Saturation 30 % (20-50)
[2022-05-13] VITALS (14 sets, daily range): BP systolic 88–109; BP diastolic 55–85; PULSE 84–111; RESP 16–24; TEMP 36–36.8; O2SAT 91–100; BMI 14.7
[2022-05-13] MEDS: SODIUM CHLORIDE 0.45% 1,000 ML 50 ML IV CONT (00:10)
[2022-05-13 00:26] LABS: Folic Acid 19.6 ng/mL (2.76->20)
--- NOTE | 2022-05-13 00:28 | ECG_ITS ---
Measurements Intervals [place] Rate: 88 P: 67 OK: 126 QRS: 22 QRSD: 79 T: 54 QT: 389 QTc: 472 Interpretive Statements SINUS RHYTHM WITH OCCASIONAL VENTRICULAR PREMATURE COMPLEXES NONSPECIFIC ST & T-WAVE ABNORMALITY COMPARED TO ECG 05/12/2022 09:49:54 SINUS RHYTHM NOW PRESENT Electronically Signed On 05-13-2022 15:28:24 PORTAL ARCHITECT by Juli Gibbons M.D.
--- NOTE | 2022-05-13 01:04 | PM.EVENT ---
Event Note Event Note Event Note: rapid response was called after patient became bradycardic. Patient had been admitted earlier with a sodium of 180 objective: patient is lethargic, obtunded, only responsive to painful stimuli, breathing is deep and slow, patient Gomez down into the 30s subjective: Lethargic physical exam general: Patient severely malnourished, emaciated, cachectic, lethargic, ill-appearing HEENT: Bitemporal muscle wasting, PERRLA, EOM intact, no JVD, no lymphadenopathy respiratory: Clear to auscultation bilaterally no wheezes rhonchi or crackles cardiovascular: Heart sounds of good tone and intensity S1-S2 heard no murmurs rubs or gallops abdomen: Soft nondistended nondistended no hepatosplenomegaly extremities bilateral lower extremity edema severe muscle atrophy throughout skin: healed superficial wounds in bilateral lower extremity, rest intact central nervous system: Lethargic unresponsive to verbal stimuli assessment and plan 1. Sinus bradycardia: Patient placed on non-rebreather supplemental oxygen heart rate now back to the 80s sinus rhythm continue to monitor, continuous telemetry, continuous pulse ox. 2. Hypernatremia: Patient was switched to D5 half-normal at 35 cc an hour serial BMPs 3. Severe protein calorie malnutrition: Consider chemist instrumentation consult once clinically able 4. Acute hypoxic respiratory failure: Likely secondary to apneic episode 5. Altered mental status: Endocrine or metabolic encephalopathy, supportive care.
[2022-05-13 01:07] LABS: Sodium 180 mmol/L (137-145)
[2022-05-13] MEDS: DEXTROSE 5%/0.45% SOD CHL 1,000 ML 30 ML IV CONT (02:00)
[2022-05-13 07:06] LABS: Basophils Percent Auto 0.2 % (0.2-1.2); Eosinophils Percent Auto 0.1 % (0-4.4); Hematocrit 36.2 % (37.0-47.0); Hemoglobin 10.2 g/dL (12.0-15.0); Immature Granulocyte Absolute 0.05 K/mm3 (0.00-0.031); Immature Granulocyte Percent A 0.4 % (0-0.5); Lymphocytes Absolute Auto 1.59 K/mm3 (0.9-3.2); Lymphocytes Percent Auto 12.2 % (18.3-44.2); Mean Corpuscular HGB Conc 28.2 g/dl (32-36); Mean Corpuscular Hemoglobin 27.6 pg (26-34); Mean Corpuscular Volume 97.8 fl (80-100); Mean Platelet Volume 12.7 fl (7.4-10.4); Monocytes Absolute Auto 0.4 K/mm3 (0.1-0.6); Monocytes Percent Auto 2.9 % (2.6-8.5); Neutrophils Percent Auto 84.2 % (45.5-73.1); Nucleated Red Blood Cells Absolute Auto 0.1 K/mm3 (0.0-0.012); Nucleated Red Blood Cells Perc 0.8 % (0.0-0.2); Platelet Count Result 173 k/mm3 (150-375); Red Cell Distribution Width 20.6 % (11.5-14.5); White Blood Count 13.1 K/mm3 (4.5-10.0)
[2022-05-13 07:23] LABS: Alanine Aminotransferase 21 U/L (6-35); Albumin Level 2.7 g/dL (3.5-5.1); Alkaline Phosphatase 90 U/L (38-126); Anion Gap 10 mmol/L (8-16); Aspartate Amino Transferase 35 U/L (14-36); Bilirubin,Total 0.2 mg/dL (0.2-1.3); Blood Urea Nitrogen 86 mg/dL (7-17); Calcium 7.6 mg/dL (8.4-10.2); Carbon Dioxide 18 mmol/L (22-30); Chloride 149 mmol/L (98-107); Estimated CRCL calculation 12 ml/min; Estimated Glomerular Filt Rate 23; Glucose 91 mg/dL (65-110); Magnesium 3.3 mg/dL (1.6-2.3); Potassium 3.8 mmol/L (3.4-5.0); Sodium 177 mmol/L (137-145)
[2022-05-13 07:52] LABS: Platelet Estimate Adequate (Adequate)
[2022-05-13 07:53] LABS: Anisocytosis 1+ (NORMAL); Hypochromasia 1+ (NORMAL); Ovalocytes 1+ (NORMAL); Poikilocytosis 1+ (NORMAL); Schistocytes 1+ (NORMAL); Target Cells 1+ (NORMAL)
[2022-05-13] MEDS: SOD HYPOCHLORITE 1/4 STRENGTH 473 ML 1 APPLIC TOPICAL (09:35)
[2022-05-13] MEDS: ENOXAPARIN 30 MG/0.3 ML SYRINGE SUB-Q (09:35)
[2022-05-13 10:47] LABS: Sodium 158 mmol/L (137-145)
--- NOTE | 2022-05-13 11:54 | PM.CNNEP ---
Assessment and Plan Assessment and plan (1) Acute kidney injury: Code(s): N17.9 - Acute kidney failure, unspecified Status: Acute Assessment and Plan: the patient has acute kidney injury. Her creatinine is 2.5 and her baseline is 0.5 in June of this year. It sounds like she is dehydrated. Her mucous membranes are dry, skin turgor is poor, and the history is suggestive of poor intake. She also has hypotension which could be contributing to the renal insufficiency as well. infection could also cause her to have renal failure. She has been cultured and is on antibiotics. I suspect she has just pre renal but ATN is a possibility depending on how long all of this is been going on. the possible etiologies include obstruction, allergic interstitial nephritis which I doubt, Glomerulonephritis which I doubt as well. will check a renal sonogram, CPK, and urine electrolytes. She does have some swelling. This could be from her low albumin which is probably from poor nutrition. She also has proteinuria which could add to the low albumin. She has a history of DVTs in the past and has COVID so we should get a venous Doppler. (2) Hypernatremia: Code(s): E87.0 - Hyperosmolality and hypernatremia Status: Acute Assessment and Plan: Sodium levels very high. This looks like the free water depletion. She is getting some D5W now. Sodium level came down a little bit and then suddenly plunged to 158. This is a bit too fast and appropriately she was switched to normal saline to continue treatment for her low blood pressure but not bring the sodium down so fast. We do not need to correct her sodium to a higher level. Will check serum and urine osmolality. I doubt if this is diabetes insipidus. (3) Chronic anemia: Code(s): D64.9 - Anemia, unspecified Status: Acute Assessment and Plan: She has chronic anemia. Her T sat is okay at 30% this admission. B12 and folate are okay as well. (4) Acute UTI: Code(s): N39.0 - Urinary tract infection, site not specified Status: Acute Assessment and Plan: The patient has urine cultures pending. She is on antibiotics. (5) COVID: Code(s): U07.1 - COVID-19 Status: Acute Assessment and Plan: She tested positive for COVID. She is not hypoxic. (6) At risk for aspiration: Code(s): Z91.89 - Other specified personal risk factors, not elsewhere classified Status: Acute Assessment and Plan: She is on thickened liquids. She does have an abnormal chest x-ray perhaps she has been aspirating in her weekend state.. History of Present Illness Reason for Consult Consult date: 05/13/22 Chief Complaint Chief complaint: UTI/Hyperkalemia History of Present Illness Narrative: Jessica is an unfortunate 76-year-old lady who has multiple medical problems including multiple sclerosis, neurogenic bladder with an indwelling Santoro, spinal stenosis, bed ridden state, history of DVT, pulmonary nodule, hyperlipidemia, dementia, anemia, stroke. The patient came to the ER because of altered mental status. She lives at home and is cared for by her family and occasionally home health helps as well. Because of swallowing issue she is on nectar thin liquids and food but does not eat very well because of the lack of appeal for that sort of a diet. She was seen in the ER. Her blood pressure was low. Her labs were checked and her sodium was very high and her BUN creatinine are high as well so she was admitted. She has been given IV fluids. Her blood pressure was in the 70s consistently early on in the ER stay but overnight and today the blood pressures in the high 80s and low 90s. She cannot give a history Review of Systems Review of Systems: ROS unobtainable: Yes unobtainable due to medical condition PMFSH Past Medical History Medical History (Reviewed 05/13/22 @ 12:04
[2022-05-13] MEDS: LIDOCAINE HCL 1% PF INJ 5 ML VIAL INFILTRATE (12:30)
[2022-05-13 12:51] LABS: Creatine Kinase 209 U/L (30-135)
[2022-05-13] MEDS: CENTRAL LINE FLUSH 10 ML IV PUSH ×2 (13:19→22:56)
[2022-05-13] MEDS: CEFEPIME 0.5 GM in DEXTROSE 5% IN WATER 50 ML IVPB (13:19)
[2022-05-13] MEDS: SODIUM CHLORIDE 0.9% IV 1,000 ML 75 ML IV CONT (13:20)
--- NOTE | 2022-05-13 14:12 | PM.IMPN ---
Progress Note: A&P Assessment and Plan (1) Hypernatremia: Code(s): E87.0 - Hyperosmolality and hypernatremia Status: Acute (2) Hyperchloremia: Code(s): E87.8 - Other disorders of electrolyte and fluid balance, not elsewhere classified Status: Acute (3) Acute kidney injury: Code(s): N17.9 - Acute kidney failure, unspecified Status: Acute (4) Hypotension: Code(s): I95.9 - Hypotension, unspecified Status: Acute (5) Urinary tract infection: Code(s): N39.0 - Urinary tract infection, site not specified Status: Acute (6) Toxic metabolic encephalopathy: Code(s): G92.8 - Other toxic encephalopathy Status: Acute (7) Chronic anemia: Code(s): D64.9 - Anemia, unspecified Status: Acute (8) Protein calorie malnutrition: Code(s): E46 - Unspecified protein-calorie malnutrition Status: Acute (9) Dehydration: Code(s): E86.0 - Dehydration Status: Acute (10) COVID: Code(s): U07.1 - COVID-19 Status: Acute Plan # acute encephalopathy: CT head not done all be related to severe dehydration and hypernatremia. Will get CT head to rule out any neurological etiology. # severe hypernatremia: Sodium level of 183 on admission. IV fluid with careful monitoring of sodium level. Nephrology consultation Water deficit of 5 L # hypotension: Given IV fluid with some improvement # IVET: 2.5 creatinine. poor urine output. Urinalysis turbid possible UTI versus ATN. Continue IV hydration and monitor urine output. Santoro in place. Empirically started on antibiotic. History of Pseudomonas in the past will change ceftriaxone to cefepime. # hypoxia: Chest x-ray yesterday with no acute cardiopulmonary disease. Will repeat chest x-ray today per it is not in distress. Continue oxygen supplementation to keep SpO2 more than 90% # COVID infection. No hypoxic. Initially was not on any oxygen # UTI: Ceftriaxone to cefepime. # multiple pressure ulcers: Wound Care consulted # bilateral footdrop bedbound status # severe protein calorie malnutrition # DVT prophylaxis Lovenox # code status full code Subjective Date/time seen: 05/13/22 14:12 Interval history: overnight events noted. Add bradycardia which is mostly sinus bradycardia dipping down to high 30s to 40s. Was also hypoxic at the time. Placed on 4 L oxygen. Patient awake but non conversive. Does not follow commands. Review of system could not be completed due to mental status. Review of Systems Review of Systems: ROS unobtainable: Yes unobtainable due to mental status Exam Narrative: General: Thin, frail, ill-appearing elderly female Awake but non conversive and not following commands HEENT: Normocephalic, atraumatic. PERRL, EOMI. Sclera anicteric. Oral mucosa is extremely dry. Edentulous. Neck: Supple. Respiratory: Respirations are nonlabored. diminished breath sounds bilaterally Cardiovascular: Regular rate and rhythm with S1-S2. Gastrointestinal: Abdomen is slightly firm, scaphoid, and nontender with positive bowel sounds. Genitourinary: Santoro catheter draining a small amount of light yellow-colored urine Skin: Warm and dry. Sacral and ischial pressure ulcers without evidence of obvious infection. There is a pressure sore on the left hip and heel with eschar present. Extremities: No cyanosis, clubbing, or edema. Peripheral pulses palpable. Neurological: Alert to stimuli. no facial asymmetry. Non conversive.. Bilateral footdrop noted. Psychiatric: Unable to assess given altered mental status. Objective Data Vital Signs Vital Signs: Vital Signs - 24 hr 05/12/22 14:48 05/12/22 14:15 05/12/22 14:30 Temperature Pulse Rate 89 85 92 Respiratory Rate 18 15 13 Blood Pressure 84/65 L 76/65 L 76/67 L Pulse Oximetry 95 99 99 Oxygen Delivery Oxygen Flow Rate 05/12/22 14:45 05/12/22 15:00 05/12/22 15:15 Temperature Pul
[2022-05-13 14:20] LABS: Sodium 177 mmol/L (137-145)
[2022-05-13] MEDS: metroNIDAZOLE 500 MG/ISO 100ML 500 MG/100 ML BAG 100 MG IVPB ×3 (14:51→23:17)
[2022-05-13] MEDS: DEXTROSE 5%/0.45% SOD CHL 1,000 ML 100 ML IV CONT (14:53)
--- NOTE | 2022-05-13 14:59 | PCSTNOTE ---
Bedside Swallow Evaluation not completed this date due to RN reporting patient remains nonresponsive and not appropriate for swallow evaluation. Will plan to attempt evaluation tomorrow.
[2022-05-14] VITALS (12 sets, daily range): BP systolic 92–113; BP diastolic 59–68; PULSE 73–97; RESP 16; TEMP 36.2–36.6; O2SAT 93–100
[2022-05-14] MEDS: DEXTROSE 5%/0.45% SOD CHL 1,000 ML 100 ML IV CONT (00:22)
[2022-05-14 01:22] LABS: Anion Gap 11 mmol/L (8-16); Blood Urea Nitrogen 75 mg/dL (7-17); Calcium 5.9 mg/dL (8.4-10.2); Carbon Dioxide 11 mmol/L (22-30); Chloride 143 mmol/L (98-107); Estimated CRCL calculation 16 ml/min; Estimated Glomerular Filt Rate 33; Glucose 116 mg/dL (65-110); Potassium 3.1 mmol/L (3.4-5.0); Sodium 165 mmol/L (137-145)
[2022-05-14] MEDS: metroNIDAZOLE 500 MG/ISO 100ML 500 MG/100 ML BAG 100 MG IVPB ×3 (05:52→19:02)
[2022-05-14] MEDS: CENTRAL LINE FLUSH 10 ML IV PUSH ×3 (05:53→19:53)
[2022-05-14 07:25] LABS: Creatinine Urine 40.4 mg/dL; Total Protein Urine Random 122 mg/dL; Ur Ttl Prot Creatinine Ratio 3.02 mg/mg (0-0.20)
[2022-05-14 07:27] LABS: Sodium Urine Random 60 meq/L
--- NOTE | 2022-05-14 10:08 | PCSTNOTE ---
Please refer to the Bedside Swallow Evaluation in the EMR. Please note, silent aspiration cannot be ruled out at bedside.
--- NOTE | 2022-05-14 11:12 | PM.IMPN ---
Progress Note: A&P Assessment and Plan (1) Hypernatremia: Code(s): E87.0 - Hyperosmolality and hypernatremia Status: Acute Assessment and Plan: Continue 1/4 normal saline Appreciate nephrology consultation Suspect dehydration (2) Hyperchloremia: Code(s): E87.8 - Other disorders of electrolyte and fluid balance, not elsewhere classified Status: Acute Assessment and Plan: Appreciate nephrology consultation, secondary to above (3) Acute kidney injury: Code(s): N17.9 - Acute kidney failure, unspecified Status: Acute Assessment and Plan: As above (4) Hypotension: Code(s): I95.9 - Hypotension, unspecified Status: Acute (5) Urinary tract infection: Code(s): N39.0 - Urinary tract infection, site not specified Status: Acute (6) Toxic metabolic encephalopathy: Code(s): G92.8 - Other toxic encephalopathy Status: Acute Assessment and Plan: Likely secondary to electrolyte abnormalities, severe dehydration (7) Chronic anemia: Code(s): D64.9 - Anemia, unspecified Status: Acute (8) Protein calorie malnutrition: Code(s): E46 - Unspecified protein-calorie malnutrition Status: Acute (9) Dehydration: Code(s): E86.0 - Dehydration Status: Acute (10) COVID: Code(s): U07.1 - COVID-19 Status: Acute Assessment and Plan: Asymptomatic, monitor (11) Decubitus skin ulcer: Qualifiers: Pressure injury location: sacral region Pressure injury stage: stage 4 Qualified Code(s): L89.154 - Pressure ulcer of sacral region, stage 4 Code(s): L89.90 - Pressure ulcer of unspecified site, unspecified stage Status: Acute Assessment and Plan: Wound care consult pending Plan DVT prophylaxis with Lovenox GI prophylaxis with Pepcid Code status full code Subjective Date/time seen: 05/14/22 11:12 Interval history: No overnight events noted. No chest pain or shortness of breath. No nausea, vomiting or diarrhea. No fevers or chills. Patient states she feels about the same today as yesterday. 96% on 4 L nasal cannula Review of Systems Review of Systems: 12 point review of systems was assessed and was negative except as noted in the HPI Exam Narrative: General: No acute distress, alert and oriented per baseline HEENT: Atraumatic, normocephalic, mucous membranes moist CV: Regular rate and rhythm, S1, S2 Lungs: Somewhat diminished bases, coarse breath sounds throughout Abdomen: Soft, nontender, nondistended Extremities: Normal to inspection Skin: No rashes noted, no lesions or wounds seen Psych: Euthymic, normal affect Objective Data Vital Signs Vital Signs: Vital Signs - 24 hr 05/13/22 12:00 05/13/22 12:00 05/13/22 16:00 Temperature 97.4 F L 97.8 F Pulse Rate 111 H 90 Respiratory Rate 18 16 Blood Pressure 109/64 107/67 Pulse Oximetry 100 100 100 Oxygen Delivery Nasal Cannula Oxygen Flow Rate 4 05/13/22 16:00 05/13/22 12:00 05/13/22 14:00 Temperature Pulse Rate 90 88 Respiratory Rate Blood Pressure Pulse Oximetry 100 Oxygen Delivery Nasal Cannula Oxygen Flow Rate 4 05/13/22 16:00 05/13/22 18:00 05/13/22 20:00 Temperature 96.8 F L Pulse Rate 92 93 90 Respiratory Rate 20 Blood Pressure 105/64 Pulse Oximetry 91 Oxygen Delivery Oxygen Flow Rate 05/13/22 20:00 05/13/22 22:00 05/14/22 00:00 Temperature 97.7 F Pulse Rate 91 93 97 Respiratory Rate 16 Blood Pressure 100/60 Pulse Oximetry 98 Oxygen Delivery Oxygen Flow Rate 05/13/22 20:00 05/14/22 00:00 05/14/22 02:00 Temperature Pulse Rate 92 92 Respiratory Rate Blood Pressure Pulse Oximetry 96 Oxygen Delivery Nasal Cannula Oxygen Flow Rate 4 05/14/22 00:00 05/14/22 04:00 05/14/22 04:00 Temperature Pulse Rate 73 Respiratory Rate Blood Pressure Pulse Oximetry 96 96
[2022-05-14] MEDS: ENOXAPARIN 30 MG/0.3 ML SYRINGE SUB-Q (11:52)
[2022-05-14] MEDS: DEXTROSE 5%/0.45% SOD CHL 1,000 ML 75 ML IV CONT (11:52)
[2022-05-14] MEDS: SOD HYPOCHLORITE 1/4 STRENGTH 473 ML 1 APPLIC TOPICAL (11:53)
[2022-05-14] MEDS: FAMOTIDINE 20 MG/2 ML VIAL IV PUSH ×2 (11:53→19:53)
[2022-05-14] MEDS: CEFEPIME 0.5 GM in DEXTROSE 5% IN WATER 50 ML IVPB (12:20)
[2022-05-14 12:22] LABS: Basophils Percent Auto 0.2 % (0.2-1.2); Eosinophils Percent Auto 0.2 % (0-4.4); Hematocrit 27.6 % (37.0-47.0); Immature Granulocyte Absolute 0.05 K/mm3 (0.00-0.031); Immature Granulocyte Percent A 0.5 % (0-0.5); Immature Platelet Fraction Pct 6.1 % (0.9-11.2); Lymphocytes Absolute Auto 0.53 K/mm3 (0.9-3.2); Lymphocytes Percent Auto 5.1 % (18.3-44.2); Mean Corpuscular Hemoglobin 27.3 pg (26-34); Mean Corpuscular Volume 94.2 fl (80-100); Mean Platelet Volume 13.6 fl (7.4-10.4); Monocytes Absolute Auto 0.2 K/mm3 (0.1-0.6); Monocytes Percent Auto 1.6 % (2.6-8.5); Neutrophils Absolute Auto 9.5 K/mm3 (1.3-6.7); Neutrophils Percent Auto 92.4 % (45.5-73.1); Nucleated Red Blood Cells Absolute Auto 0.1 K/mm3 (0.0-0.012); Nucleated Red Blood Cells Perc 1.2 % (0.0-0.2); Platelet Count Result 123 k/mm3 (150-375); Red Blood Count 2.93 M/mm3 (4.2-5.4); Red Cell Distribution Width 20.9 % (11.5-14.5); White Blood Count 10.3 K/mm3 (4.5-10.0)
[2022-05-14 12:33] LABS: Alanine Aminotransferase 19 U/L (6-35); Albumin Level 2.5 g/dL (3.5-5.1); Alkaline Phosphatase 70 U/L (38-126); Anion Gap 9 mmol/L (8-16); Aspartate Amino Transferase 26 U/L (14-36); Bilirubin,Total 0.5 mg/dL (0.2-1.3); Blood Urea Nitrogen 78 mg/dL (7-17); Calcium 6.8 mg/dL (8.4-10.2); Carbon Dioxide 12 mmol/L (22-30); Chloride 144 mmol/L (98-107); Estimated CRCL calculation 15 ml/min; Estimated Glomerular Filt Rate 30; Glucose 205 mg/dL (65-110); Potassium 5.5 mmol/L (3.4-5.0); Sodium 165 mmol/L (137-145)
[2022-05-14 12:57] LABS: Anisocytosis 1+ (NORMAL); Hypochromasia 1+ (NORMAL); Microcytosis 1+ (NORMAL); Ovalocytes 1+ (NORMAL); Schistocytes None Seen (NORMAL); Target Cells 1+ (NORMAL)
--- NOTE | 2022-05-14 17:56 | PM.PNNEP ---
Progress Note: A&P Assessment and Plan (1) Acute kidney injury: Code(s): N17.9 - Acute kidney failure, unspecified Status: Acute Assessment and Plan: the patient has acute kidney injury. Her creatinine is 2.5 and her baseline is 0.5 in June of this year. urine electrolytes are non pre renal. CK is 209 I suspect that this is acute kidney injury from dehydration. She is getting IV fluids. Her creatinine seems to be improving slowly. (2) Hypernatremia: Code(s): E87.0 - Hyperosmolality and hypernatremia Status: Acute Assessment and Plan: Sodium levels very high. most likely due to free water depletion. serum and urine osmolality are pending.. I doubt if this is diabetes insipidus. She is getting half normal saline she was getting D5W and overcorrected. Then normal saline and then switch to half-normal. Edema still high at 165 now. She has been getting half normal saline for about 24 hours I believe. Will change to D5W now and recheck a sodium in the morning. (3) Chronic anemia: Code(s): D64.9 - Anemia, unspecified Status: Acute Assessment and Plan: She has chronic anemia. Her T sat is okay at 30% this admission. B12 and folate are okay as well. Hemoglobin is 8. (4) Acute UTI: Code(s): N39.0 - Urinary tract infection, site not specified Status: Acute Assessment and Plan: The patient has pyuria. Her urine culture showed mixed genital ryan. She is on antibiotics. (5) COVID: Code(s): U07.1 - COVID-19 Status: Acute Assessment and Plan: She tested positive for COVID. She is not hypoxic. (6) At risk for aspiration: Code(s): Z91.89 - Other specified personal risk factors, not elsewhere classified Status: Acute Assessment and Plan: She is on thickened liquids. She does have an abnormal chest x-ray perhaps she has been aspirating in her weekend state.. Subjective Date/time seen: 05/14/22 17:56 Interval history: Jessica is about the same. Her eyes are open but does not interact very much. Exam Narrative: WDWN in NAD skin no rash head ncat lungs clear cor reg no rub abd BS+ nontender and soft ext One to2+ bilateral edema. Objective Data Vital Signs Vital Signs: Vital Signs - 24 hr 05/13/22 18:00 05/13/22 20:00 05/13/22 20:00 Temperature 96.8 F L Pulse Rate 93 90 91 Respiratory Rate 20 Blood Pressure 105/64 Pulse Oximetry 91 Oxygen Delivery Oxygen Flow Rate 05/13/22 22:00 05/14/22 00:00 05/13/22 20:00 Temperature 97.7 F Pulse Rate 93 97 Respiratory Rate 16 Blood Pressure 100/60 Pulse Oximetry 98 96 Oxygen Delivery Nasal Cannula Oxygen Flow Rate 4 05/14/22 00:00 05/14/22 02:00 05/14/22 00:00 Temperature Pulse Rate 92 92 Respiratory Rate Blood Pressure Pulse Oximetry 96 Oxygen Delivery Nasal Cannula Oxygen Flow Rate 4 05/14/22 04:00 05/14/22 04:00 05/14/22 04:00 Temperature 97.1 F L Pulse Rate 73 93 Respiratory Rate 16 Blood Pressure 106/61 Pulse Oximetry 96 99 Oxygen Delivery Nasal Cannula Oxygen Flow Rate 4 05/14/22 07:51 05/14/22 12:00 05/14/22 16:00 Temperature 97.8 F 97.1 F L 97.6 F Pulse Rate 83 77 85 Respiratory Rate 16 16 16 Blood Pressure 92/59 L 105/68 109/65 Pulse Oximetry 99 100 93 Oxygen Delivery Oxygen Flow Rate 05/14/22 08:00 05/14/22 10:00 05/14/22 12:00 Temperature Pulse Rate 82 86 81 Respiratory Rate Blood Pressure Pulse Oximetry Oxygen Delivery Oxygen Flow Rate 05/14/22 16:00 05/14/22 14:00 05/14/22 08:00 Temperature Pulse Rate 83 80 Respiratory Rate Blood Pressure Pulse Oximetry 94 Oxygen Delivery Nasal Cannula Oxygen Flow Rate 2 05/14/22 12:00 05/14/22 16:00 Temperature Pulse Rate Respiratory Rate Blood Pressure Pulse Oximetry 94 94 Ox
[2022-05-14 19:14] LABS: Hematocrit 33.3 % (37.0-47.0); Hemoglobin 9.2 g/dL (12.0-15.0); Immature Platelet Fraction Pct 6.1 % (0.9-11.2); Mean Corpuscular HGB Conc 27.6 g/dl (32-36); Mean Corpuscular Hemoglobin 27.4 pg (26-34); Mean Corpuscular Volume 99.1 fl (80-100); Mean Platelet Volume 13.5 fl (7.4-10.4); Platelet Count Result 120 k/mm3 (150-375); Red Blood Count 3.36 M/mm3 (4.2-5.4); Red Cell Distribution Width 20.8 % (11.5-14.5); White Blood Count 11.8 K/mm3 (4.5-10.0)
[2022-05-14 19:33] LABS: Alanine Aminotransferase 19 U/L (6-35); Albumin Level 2.5 g/dL (3.5-5.1); Alkaline Phosphatase 85 U/L (38-126); Anion Gap 11 mmol/L (8-16); Aspartate Amino Transferase 24 U/L (14-36); Bilirubin,Total 0.5 mg/dL (0.2-1.3); Blood Urea Nitrogen 76 mg/dL (7-17); Calcium 7.2 mg/dL (8.4-10.2); Carbon Dioxide 10 mmol/L (22-30); Chloride 151 mmol/L (98-107); Estimated CRCL calculation 14 ml/min; Estimated Glomerular Filt Rate 28; Glucose 154 mg/dL (65-110); Potassium 3.1 mmol/L (3.4-5.0); Sodium 172 mmol/L (137-145)
[2022-05-14] MEDS: DEXTROSE 5% 1,000 ML 1,000 ML 100 ML IV CONT (20:04)
[2022-05-14 23:53] LABS: Glucose Point of Care 143 mg/dl (65-105)
[2022-05-15] VITALS (12 sets, daily range): BP systolic 86–116; BP diastolic 46–67; PULSE 57–78; RESP 16–18; TEMP 35.8–36.4; O2SAT 93–100
[2022-05-15] MEDS: metroNIDAZOLE 500 MG/ISO 100ML 500 MG/100 ML BAG 100 MG IVPB ×4 (00:49→19:39)
[2022-05-15 00:51] LABS: Hematocrit 27.6 % (37.0-47.0); Immature Platelet Fraction Pct 6.4 % (0.9-11.2); Mean Corpuscular Hemoglobin 27.2 pg (26-34); Mean Corpuscular Volume 93.9 fl (80-100); Mean Platelet Volume 13.1 fl (7.4-10.4); Platelet Count Result 112 k/mm3 (150-375); Red Blood Count 2.94 M/mm3 (4.2-5.4); Red Cell Distribution Width 20.4 % (11.5-14.5); White Blood Count 11.3 K/mm3 (4.5-10.0)
[2022-05-15 01:16] LABS: Alanine Aminotransferase 19 U/L (6-35); Albumin Level 2.5 g/dL (3.5-5.1); Alkaline Phosphatase 75 U/L (38-126); Anion Gap 8 mmol/L (8-16); Aspartate Amino Transferase 24 U/L (14-36); Bilirubin,Total 0.5 mg/dL (0.2-1.3); Blood Urea Nitrogen 74 mg/dL (7-17); Carbon Dioxide 13 mmol/L (22-30); Chloride 144 mmol/L (98-107); Estimated CRCL calculation 15 ml/min; Estimated Glomerular Filt Rate 31; Glucose 153 mg/dL (65-110); Potassium 3.7 mmol/L (3.4-5.0); Sodium 165 mmol/L (137-145)
[2022-05-15] MEDS: DEXTROSE 5% 1,000 ML 1,000 ML 75 ML IV CONT (06:18)
[2022-05-15] MEDS: CENTRAL LINE FLUSH 10 ML IV PUSH ×3 (06:19→20:34)
[2022-05-15] MEDS: ALTEPLASE 2 MG VIAL (CATHFLO) IV PUSH (06:44)
[2022-05-15 08:54] LABS: Hematocrit 28.6 % (37.0-47.0); Immature Platelet Fraction Pct 7.4 % (0.9-11.2); Mean Corpuscular Hemoglobin 26.4 pg (26-34); Mean Corpuscular Volume 94.4 fl (80-100); Mean Platelet Volume 13.5 fl (7.4-10.4); Platelet Count Result 88 k/mm3 (150-375); Red Blood Count 3.03 M/mm3 (4.2-5.4); Red Cell Distribution Width 20.4 % (11.5-14.5); White Blood Count 11.2 K/mm3 (4.5-10.0)
[2022-05-15 09:01] LABS: Alanine Aminotransferase 17 U/L (6-35); Albumin Level 2.5 g/dL (3.5-5.1); Alkaline Phosphatase 78 U/L (38-126); Anion Gap 9 mmol/L (8-16); Aspartate Amino Transferase 21 U/L (14-36); Bilirubin,Total 0.3 mg/dL (0.2-1.3); Blood Urea Nitrogen 71 mg/dL (7-17); Carbon Dioxide 12 mmol/L (22-30); Chloride 140 mmol/L (98-107); Estimated CRCL calculation 21 ml/min; Estimated Glomerular Filt Rate 30; Glucose 116 mg/dL (65-110); Phosphorus 3.8 mg/dL (2.5-4.5); Potassium 2.3 mmol/L (3.4-5.0); Sodium 161 mmol/L (137-145)
[2022-05-15] MEDS: SOD HYPOCHLORITE 1/4 STRENGTH 473 ML 1 APPLIC TOPICAL (09:44)
[2022-05-15] MEDS: ENOXAPARIN 30 MG/0.3 ML SYRINGE SUB-Q (10:11)
[2022-05-15] MEDS: FAMOTIDINE 20 MG/2 ML VIAL IV PUSH ×2 (10:11→20:34)
[2022-05-15 12:11] LABS: Total Cells Counted 100
[2022-05-15 12:14] LABS: Band Neutrophils Percent 28 % (0-6); Eosinophils Absolute Manual 0.11 K/mm3 (0.02-0.5); Eosinophils Percent Manual 1 % (0-4); Lymphocytes Absolute Manual 0.33 K/mm3 (1.1-4.5); Lymphocytes Percent Manual 3 % (18-44); Neutrophils Absolute Manual 10.75 K/mm3 (1.7-7.2); Neutrophils Percent Manual 68 % (46-73); Platelet Estimate Decreased (Adequate)
[2022-05-15 12:16] LABS: Schistocytes 1+ (NORMAL)
[2022-05-15 12:17] LABS: Burr Cells 2+ (NORMAL); Poikilocytosis 1+ (NORMAL)
[2022-05-15 13:12] LABS: Glucose Point of Care 106 mg/dl (65-105)
[2022-05-15] MEDS: CEFEPIME 0.5 GM in DEXTROSE 5% IN WATER 50 ML IVPB (14:22)
--- NOTE | 2022-05-15 18:10 | PM.PNNEP ---
Progress Note: A&P Assessment and Plan (1) Acute kidney injury: Code(s): N17.9 - Acute kidney failure, unspecified Status: Acute Assessment and Plan: the patient has acute kidney injury. urine electrolytes are non pre renal. CK is 209 This is acute kidney injury from dehydration. she has large decubitus ulcers and an elevated white count. She is on antibiotics in case of infection. She is getting IV fluids. Her creatinine seems to be improving slowly. (2) Hypernatremia: Code(s): E87.0 - Hyperosmolality and hypernatremia Status: Acute Assessment and Plan: Sodium levels very high. most likely due to free water depletion. serum and urine osmolality are pending.. I doubt if this is diabetes insipidus. She is getting half normal saline Her sodium stabilized at about 161. Will change to D5W now and recheck a sodium in the morning. (3) Chronic anemia: Code(s): D64.9 - Anemia, unspecified Status: Acute Assessment and Plan: She has chronic anemia. Her T sat is okay at 30% this admission. B12 and folate are okay as well. Hemoglobin is 8 Again. (4) Acute UTI: Code(s): N39.0 - Urinary tract infection, site not specified Status: Acute Assessment and Plan: The patient has pyuria. Her urine culture showed mixed genital ryan. She is on antibiotics. (5) COVID: Code(s): U07.1 - COVID-19 Status: Acute Assessment and Plan: She tested positive for COVID. She is not hypoxic. (6) At risk for aspiration: Code(s): Z91.89 - Other specified personal risk factors, not elsewhere classified Status: Acute Assessment and Plan: She is on thickened liquids. She does have an abnormal chest x-ray perhaps she has been aspirating in her weekend state. Plan Overall prognosis is poor. Subjective Date/time seen: 05/15/22 18:10 Interval history: 05/14 Jessica is about the same. Her eyes are open but does not interact very much. 05/15 The patient is about the same today she opens her eyes and regards examiner but no interaction. Exam Narrative: WDWN in NAD skin no rash head ncat lungs clear cor reg no rub abd BS+ nontender and soft ext One to2+ bilateral edema. Objective Data Vital Signs Vital Signs: Vital Signs - 24 hr 05/14/22 20:00 05/15/22 00:00 05/14/22 20:00 Temperature 97.6 F 97.6 F Pulse Rate 78 78 80 Respiratory Rate 16 16 Blood Pressure 113/68 116/67 Pulse Oximetry 94 93 Oxygen Delivery 05/14/22 20:00 05/14/22 22:00 05/15/22 00:00 Temperature Pulse Rate 78 82 72 Respiratory Rate 16 Blood Pressure Pulse Oximetry 93 Oxygen Delivery Room Air 05/15/22 00:00 05/15/22 02:00 05/15/22 04:00 Temperature Pulse Rate 78 57 L 61 Respiratory Rate 16 Blood Pressure Pulse Oximetry 93 Oxygen Delivery Room Air 05/15/22 04:00 05/15/22 04:00 05/15/22 06:00 Temperature 97.3 F L Pulse Rate 78 61 62 Respiratory Rate 16 18 Blood Pressure 96/55 L Pulse Oximetry 93 98 Oxygen Delivery Room Air 05/15/22 08:00 05/15/22 12:00 05/15/22 16:00 Temperature 97.3 F L 96.9 F L 96.5 F L Pulse Rate 65 67 65 Respiratory Rate 16 16 18 Blood Pressure 95/57 L 90/46 L 86/47 L Pulse Oximetry 95 97 95 Oxygen Delivery 05/15/22 08:00 05/15/22 08:00 05/15/22 10:00 Temperature Pulse Rate 58 L 62 Respiratory Rate Blood Pressure Pulse Oximetry 100 Oxygen Delivery Room Air 05/15/22 12:00 05/15/22 14:00 05/15/22 12:00 Temperature Pulse Rate 75 64 Respiratory Rate Blood Pressure Pulse Oximetry 100 Oxygen Delivery Room Air 05/15/22 16:00 Temperature Pulse Rate Respiratory Rate Blood Pressure Pulse Oximetry 100 Oxygen Delivery Room Air Intake/Output Intake/Output: Intake & Output 05/12/22 05/13/22 05/14/22 05/15/22 23:59 23:59 23:59 23:5
--- NOTE | 2022-05-15 18:18 | PM.IMPN ---
Progress Note: A&P Assessment and Plan (1) Hypernatremia: Code(s): E87.0 - Hyperosmolality and hypernatremia Status: Acute Assessment and Plan: Continue 1/4 normal saline Appreciate nephrology consultation Suspect severe dehydration due to progressive dementia and possible neglect Would recommend hospice care at this point, will discuss with family (2) Hyperchloremia: Code(s): E87.8 - Other disorders of electrolyte and fluid balance, not elsewhere classified Status: Acute Assessment and Plan: Appreciate nephrology consultation, secondary to above (3) Acute kidney injury: Code(s): N17.9 - Acute kidney failure, unspecified Status: Acute Assessment and Plan: As above (4) Hypotension: Code(s): I95.9 - Hypotension, unspecified Status: Acute (5) Urinary tract infection: Code(s): N39.0 - Urinary tract infection, site not specified Status: Acute Assessment and Plan: Urine culture came back negative for infection (6) Toxic metabolic encephalopathy: Code(s): G92.8 - Other toxic encephalopathy Status: Acute Assessment and Plan: Likely secondary to electrolyte abnormalities, severe dehydration (7) Chronic anemia: Code(s): D64.9 - Anemia, unspecified Status: Acute (8) Protein calorie malnutrition: Code(s): E46 - Unspecified protein-calorie malnutrition Status: Acute Assessment and Plan: Severe dementia causing significant anorexia and malnutrition, possibly compounded by neglect, would recommend hospice (9) Dehydration: Code(s): E86.0 - Dehydration Status: Acute Assessment and Plan: Severe, appreciate nephrology consultation (10) COVID: Code(s): U07.1 - COVID-19 Status: Acute Assessment and Plan: Asymptomatic, monitor (11) Decubitus skin ulcer: Qualifiers: Pressure injury location: sacral region Pressure injury stage: stage 4 Qualified Code(s): L89.154 - Pressure ulcer of sacral region, stage 4 Code(s): L89.90 - Pressure ulcer of unspecified site, unspecified stage Status: Acute Assessment and Plan: Wound care consult pending (12) Fecal impaction of colon: Code(s): K56.41 - Fecal impaction Status: Acute Assessment and Plan: Severe fecal impaction of colon, likely requires decompressive colonoscopy, GI consult pending Will discuss code status and level of care with family, patient is hospice appropriate Plan DVT prophylaxis with Lovenox GI prophylaxis with Pepcid Code status full code, will discuss changing code status with family Subjective Date/time seen: 05/15/22 18:18 Interval history: No overnight events noted. Patient not communicative. Review of Systems Review of Systems: ROS unobtainable: Yes unobtainable due to mental status Exam Narrative: General: Cachectic, nonverbal, non communicative HEENT: Atraumatic, normocephalic, mucous membranes moist CV: Regular rate and rhythm, S1, S2 Lungs: Diminished throughout, nonlabored respirations Abdomen: Soft, nontender, nondistended, multiple stool balls felt throughout colon Extremities: Normal to inspection Skin: Multiple pressure ulcers noted Psych: Unable to assess Objective Data Vital Signs Vital Signs: Vital Signs - 24 hr 05/14/22 20:00 05/15/22 00:00 05/14/22 20:00 Temperature 97.6 F 97.6 F Pulse Rate 78 78 80 Respiratory Rate 16 16 Blood Pressure 113/68 116/67 Pulse Oximetry 94 93 Oxygen Delivery 05/14/22 20:00 05/14/22 22:00 05/15/22 00:00 Temperature Pulse Rate 78 82 72 Respiratory Rate 16 Blood Pressure Pulse Oximetry 93 Oxygen Delivery Room Air 05/15/22 00:00 05/15/22 02:00 05/15/22 04:00 Temperature Pulse Rate 78 57 L 61 Respiratory Rate 16 Blood Pressure Pulse Oximetry 93 Oxygen Delivery Room Air 05/15/22 04:00 05/15/22 04:00 05/15/22 06:
[2022-05-15 19:48] LABS: Sodium 162 mmol/L (137-145)
[2022-05-15] MEDS: KCL 40 MEQ/WATER 100 ML 100 ML 25 ML IVPB (20:34)
[2022-05-15] MEDS: DEXTROSE 5% 1,000 ML 1,000 ML 100 ML IV CONT (23:32)
[2022-05-16] VITALS (14 sets, daily range): BP systolic 62–95; BP diastolic 43–57; PULSE 53–89; RESP 12–24; TEMP 32.9–36.4; O2SAT 93–100
[2022-05-16 00:36] LABS: Glucose Point of Care 121 mg/dl (65-105)
[2022-05-16] MEDS: metroNIDAZOLE 500 MG/ISO 100ML 500 MG/100 ML BAG 100 MG IVPB ×3 (00:45→13:30)
[2022-05-16 01:43] LABS: Hemoglobin 8.2 g/dL (12.0-15.0); Immature Platelet Fraction Pct 7.8 % (0.9-11.2); Mean Corpuscular HGB Conc 27.3 g/dl (32-36); Mean Corpuscular Hemoglobin 27.4 pg (26-34); Mean Corpuscular Volume 100.3 fl (80-100); Mean Platelet Volume 13.5 fl (7.4-10.4); Platelet Count Result 80 k/mm3 (150-375); Red Blood Count 2.99 M/mm3 (4.2-5.4); Red Cell Distribution Width 20.4 % (11.5-14.5); White Blood Count 11.8 K/mm3 (4.5-10.0)
[2022-05-16 02:01] LABS: Alanine Aminotransferase 17 U/L (6-35); Albumin Level 2.2 g/dL (3.5-5.1); Alkaline Phosphatase 76 U/L (38-126); Anion Gap 10 mmol/L (8-16); Aspartate Amino Transferase 25 U/L (14-36); Bilirubin,Total 0.4 mg/dL (0.2-1.3); Blood Urea Nitrogen 68 mg/dL (7-17); Calcium 6.9 mg/dL (8.4-10.2); Carbon Dioxide 8 mmol/L (22-30); Chloride 140 mmol/L (98-107); Estimated CRCL calculation 22 ml/min; Estimated Glomerular Filt Rate 31; Glucose 143 mg/dL (65-110); Potassium 3.2 mmol/L (3.4-5.0); Sodium 158 mmol/L (137-145)
[2022-05-16 02:05] LABS: Band Neutrophils Percent 7 % (0-6); Lymphocytes Absolute Manual 0.35 K/mm3 (1.1-4.5); Lymphocytes Percent Manual 3 % (18-44); Neutrophils Absolute Manual 11.44 K/mm3 (1.7-7.2); Neutrophils Percent Manual 90 % (46-73); Nucleated Red Blood Cells 2 %; Platelet Estimate Decreased (Adequate); Total Cells Counted 100
[2022-05-16 02:06] LABS: Anisocytosis 2+ (NORMAL); Burr Cells 3+ (NORMAL); Schistocytes 1+ (NORMAL); Target Cells 1+ (NORMAL)
[2022-05-16 06:23] LABS: Glucose Point of Care 164 mg/dl (65-105)
--- NOTE | 2022-05-16 07:14 | PM.IMPN ---
Progress Note: A&P Assessment and Plan (1) Hypernatremia: Code(s): E87.0 - Hyperosmolality and hypernatremia Status: Acute Assessment and Plan: Comfort care initiated (2) Fecal impaction of colon: Code(s): K56.41 - Fecal impaction Status: Acute Assessment and Plan: Severe fecal impaction of colon, likely requires decompressive colonoscopy, GI consult placed Patient is hospice appropriate (3) Hypothermia: Code(s): T68.XXXA - Hypothermia, initial encounter Status: Acute Assessment and Plan: placed in sivakumar hugger during rapid response this morning, monitor, likely 2/2 overall decline (4) Hyperchloremia: Code(s): E87.8 - Other disorders of electrolyte and fluid balance, not elsewhere classified Status: Acute Assessment and Plan: Appreciate nephrology consultation, secondary to above (5) Acute kidney injury: Code(s): N17.9 - Acute kidney failure, unspecified Status: Acute Assessment and Plan: As above (6) Hypotension: Code(s): I95.9 - Hypotension, unspecified Status: Acute (7) Urinary tract infection: Code(s): N39.0 - Urinary tract infection, site not specified Status: Acute Assessment and Plan: Urine culture came back negative for infection (8) Toxic metabolic encephalopathy: Code(s): G92.8 - Other toxic encephalopathy Status: Acute Assessment and Plan: Likely secondary to electrolyte abnormalities, severe dehydration (9) Chronic anemia: Code(s): D64.9 - Anemia, unspecified Status: Acute (10) Protein calorie malnutrition: Code(s): E46 - Unspecified protein-calorie malnutrition Status: Acute Assessment and Plan: Severe dementia causing significant anorexia and malnutrition, possibly compounded by neglect, would recommend hospice (11) Dehydration: Code(s): E86.0 - Dehydration Status: Acute Assessment and Plan: Severe, appreciate nephrology consultation (12) COVID: Code(s): U07.1 - COVID-19 Status: Acute Assessment and Plan: Asymptomatic, monitor (13) Decubitus skin ulcer: Qualifiers: Pressure injury location: sacral region Pressure injury stage: stage 4 Qualified Code(s): L89.154 - Pressure ulcer of sacral region, stage 4 Code(s): L89.90 - Pressure ulcer of unspecified site, unspecified stage Status: Acute Assessment and Plan: Wound care consult Plan DVT prophylaxis with Lovenox GI prophylaxis with Pepcid Code status DNR, comfort care measures Extensive discussion had with family. Patient to be DNR and comfort care only, hospice consult pending. Subjective Date/time seen: 05/16/22 07:14 Interval history: Rapid response called this morning. Patient's temperature was extremely low at 92. The rest of her VS was stable. Patient was at her baseline mentation and a sivakumar hugger was placed. A 500 ml bolus of LR was started. Recheck temperature is pending. Patient was previously on D5W per nephrology and this will be restarted after the LR bolus. Review of Systems Review of Systems: ROS unobtainable: Yes unobtainable due to mental status Exam Narrative: General: Cachectic, nonverbal, non communicative HEENT: Atraumatic, normocephalic, mucous membranes moist CV: Regular rate and rhythm, S1, S2 Lungs: Diminished throughout, nonlabored respirations Abdomen: Soft, nontender, nondistended, multiple stool balls felt throughout colon Extremities: Normal to inspection Skin: Multiple pressure ulcers noted Psych: Unable to assess Objective Data Vital Signs Vital Signs: Vital Signs - 24 hr 05/15/22 08:00 05/15/22 12:00 05/15/22 16:00 Temperature 97.3 F L 96.9 F L 96.5 F L Pulse Rate 65 67 65 Respiratory Rate 16 16 18 Blood Pressure 95/57 L 90/46 L 86/47 L Pulse Oximetry 95 97 95 Oxygen Delivery 05/15/22 08:00 05/15/22 08:00 05/15/22 10:
[2022-05-16 07:41] LABS: Glucose Point of Care 114 mg/dl (65-105)
--- NOTE | 2022-05-16 08:30 | PCNFU ---
Nutrition Follow-Up Complete: Malnutrition related to inadeuate oral intake in the setting of chronic disease as evidenced by family report of intake, low BMI of 14.7, signs of muscle wasting and fat loss. Goal:Meet estimated needs - Not able to meet goal, still NPO Pt current nutrition is NPO. Nutrition recommendation: Continue with same Last recorded weight is 62.5 kg. Bowel Motility: +1 BM 05/16/22 Labs Reviewed: Hgb 8.2, Hct 30.0, Na 158, K+ 3.2, eGFR 31, BUN 68, Cr 1.9, Glu 164 Meds Noted: Lovenox Skin: Pressure injuries present on admission. Stage 2 heel, Stage IV sacrum, stage III ischium Additional Notes: Pt is minimally responsive, rapid response was called today and pt was placed in sivakumar hugger because of low body temperature. MD to speak with family about plan of care. Continue to monitor to determine interventions. Monitor for plan of care; diet orders, supplements, intake, tolerance, wt, labs. Follow up in 3 days.
[2022-05-16] MEDS: LACTATED RINGERS 500 ML 999 ML IV CONT (08:35)
[2022-05-16] MEDS: FAMOTIDINE 20 MG/2 ML VIAL IV PUSH (09:55)
[2022-05-16] MEDS: ENOXAPARIN 30 MG/0.3 ML SYRINGE SUB-Q (09:55)
--- NOTE | 2022-05-16 11:16 | WPDGICN ---
Assessment and Plan Assessment and plan (1) Constipation by delayed colonic transit: Code(s): K59.01 - Slow transit constipation Status: Acute Assessment and Plan: Patient found to have constipation by abdominal x-ray. She has multiple medical problems currently bedridden with decubitus bed sores. Currently unresponsive. Patient initially should have resuscitation and correction of her electrolyte disturbance. NG tube may be necessary for administration of medications. She may benefit from laxatives and enemas when she is stable enough to tolerate this. Given her current status even this would be a challenge. Endoscopic therapy such as a colonoscopy is suggested on primary care notes is not feasible at this time given her overall condition. Currently hospice is being considered for this patient. I would recommend NG tube for administration of laxatives and cleansing enemas such as soapsuds enemas if she can tolerate it at the appropriate time. Understand hospice is being considered and as stated endoscopic therapy will not be initiated (2) Dementia, unspecified, with behavioral disturbance: Code(s): F03.91 - Unspecified dementia, unspecified severity, with behavioral disturbance Status: Acute (3) Altered mental status: Code(s): R41.82 - Altered mental status, unspecified Status: Acute (4) Decubitus skin ulcer: Qualifiers: Pressure injury location: sacral region Pressure injury stage: stage 4 Qualified Code(s): L89.154 - Pressure ulcer of sacral region, stage 4 Code(s): L89.90 - Pressure ulcer of unspecified site, unspecified stage Status: Acute (5) Multiple sclerosis: Code(s): G35 - Multiple sclerosis Status: Acute (6) Acute hypernatremia: Code(s): E87.0 - Hyperosmolality and hypernatremia Status: Chronic GI Consult Note Consult date/time: 05/16/22 11:16 Reason for consult: Constipation HPI: Jessica Ann is a 76 year old female I am asked to see because of abnormal abdominal x-ray suggesting constipation and fecal impaction. Patient unable to give any history. Currently unresponsive. History is obtained from the chart. Patient apparently admitted to the hospital 4 days ago on 05/12/2022 at that time with altered mental status. There is past medical history of multiple sclerosis, stroke, dementia with neurogenic bladder and welling Satnoro catheter. She apparently has been cared for at home. But unable to have any significant oral intake recently. The time of presentation she had rather profound hypernatremia.. Patient did have an x-ray several days ago which was read as having constipation. Patient has not received oral intake nor laxatives nor enemas since admission the hospital. Review of Systems Review of Systems: Review of systems unobtainable. ROS unobtainable: Yes unobtainable due to mental status PMFSH Past Medical History Medical History Cerebrovascular accident Chronic anemia Constipation Deep venous thrombosis (08/2013) Treated with Xarelto. Dementia Hyperlipidemia Multiple sclerosis Neurogenic bladder Indwelling Santoro catheter. Pulmonary nodule 1.9 centimeter left lower lobe lung mass noted on imaging in January 2014. Subsequent chest CT failed to demonstrate a nodule. Spinal stenosis Surgical History Surgical History History of hysterectomy History of tubal ligation Status post debridement (04/2019) Excisional debridement of sacral ulcer. Family History Family History Daughter Hypertension Social History Social History Social History: The patient lives in [place] with her daughter and son-in-law. No alcohol, tobacco, or illicit substance use. [place]
[2022-05-16 12:58] LABS: Glucose Point of Care 114 mg/dl (65-105)
[2022-05-16] MEDS: SOD HYPOCHLORITE 1/4 STRENGTH 473 ML 1 APPLIC TOPICAL (13:30)
[2022-05-16] MEDS: CENTRAL LINE FLUSH 10 ML IV PUSH (13:31)
[2022-05-16] MEDS: DEXTROSE 5% 1,000 ML 1,000 ML 100 ML IV CONT (13:31)
--- NOTE | 2022-05-16 13:49 | PM.PNNEP ---
Progress Note: A&P Assessment and Plan (1) Acute kidney injury: Code(s): N17.9 - Acute kidney failure, unspecified Status: Acute Assessment and Plan: the patient has acute kidney injury. urine electrolytes are non pre renal. CK is 209 This is acute kidney injury from dehydration. she has large decubitus ulcers and an elevated white count. She is on antibiotics in case of infection. She is getting IV fluids. her creatinine seems to have stabilized at around 2.0. Her blood pressure was low this morning. She is still a bit dehydrated her albumin level is low as well so she probably has some pre renal factor from this. Will give albumin infusions and see if this helps her. (2) Hypernatremia: Code(s): E87.0 - Hyperosmolality and hypernatremia Status: Acute Assessment and Plan: Sodium levels very high. most likely due to free water depletion. serum and urine osmolality are pending. I doubt if this is diabetes insipidus. She is getting half normal saline Her sodium Dropped to 158 Continue D5W. (3) Chronic anemia: Code(s): D64.9 - Anemia, unspecified Status: Acute Assessment and Plan: She has chronic anemia. Her T sat is okay at 30% this admission. B12 and folate are okay as well. Hemoglobin is 8.2 Again. (4) Acute UTI: Code(s): N39.0 - Urinary tract infection, site not specified Status: Acute Assessment and Plan: The patient has pyuria. Her urine culture showed mixed genital ryan. She is on antibiotics. (5) COVID: Code(s): U07.1 - COVID-19 Status: Acute Assessment and Plan: She tested positive for COVID. She is not hypoxic. (6) At risk for aspiration: Code(s): Z91.89 - Other specified personal risk factors, not elsewhere classified Status: Acute Assessment and Plan: She is on thickened liquids. She does have an abnormal chest x-ray perhaps she has been aspirating in her weekend state. Plan Overall prognosis is poor. Subjective Date/time seen: 05/16/22 13:49 Interval history: 05/14 Jessica is about the same. Her eyes are open but does not interact very much. 05/15 The patient is about the same today she opens her eyes and regards examiner but no interaction. 05/16 the patient is awake and regards the examiner. She had a rapid response this morning because of low blood pressure. She was given some IV fluids in a blood pressure improved. Exam Narrative: WDWN in NAD skin no rash or subcu nodules head ncat lungs mildly coarse cor reg no rub or gallop abd BS+ nontender and soft ext One to2+ bilateral edema. Objective Data Vital Signs Vital Signs: Vital Signs - 24 hr 05/15/22 16:00 05/15/22 14:00 05/15/22 16:00 Temperature 96.5 F L Pulse Rate 65 64 Respiratory Rate 18 Blood Pressure 86/47 L Pulse Oximetry 95 100 Oxygen Delivery Room Air 05/15/22 16:00 05/15/22 18:00 05/15/22 20:00 Temperature 97.3 F L Pulse Rate 58 L 59 L 63 Respiratory Rate 16 Blood Pressure 90/57 L Pulse Oximetry 96 Oxygen Delivery 05/16/22 00:00 05/15/22 20:00 05/15/22 20:00 Temperature 97.6 F Pulse Rate 73 61 73 Respiratory Rate 18 18 Blood Pressure 90/52 L Pulse Oximetry 100 100 Oxygen Delivery Room Air 05/15/22 22:00 05/16/22 00:00 05/16/22 00:00 Temperature Pulse Rate 66 70 73 Respiratory Rate 18 Blood Pressure Pulse Oximetry 100 Oxygen Delivery Room Air 05/16/22 02:00 05/16/22 04:00 05/16/22 04:00 Temperature Pulse Rate 67 73 73 Respiratory Rate 18 Blood Pressure Pulse Oximetry 100 Oxygen Delivery Room Air 05/16/22 06:31 05/16/22 06:00 05/16/22 04:00 Temperature 92.0 F L 92.0 F L Pulse Rate 68 65 Respiratory Rate 18 Blood Pressure 92/54 L Pulse Oximetry 95 Oxygen Delivery 05/16/22 07:32 05/16/22 08
[2022-05-16 15:03] LABS: Sodium 154 mmol/L (137-145)
[2022-05-16 17:54] LABS: Glucose Point of Care 124 mg/dl (65-105)
[2022-05-16] MEDS: MORPHINE SULFATE (*CRX) 4 MG/ML INJ IV PUSH (18:33)
--- NOTE | 2022-05-16 19:01 | PC.NURSE ---
[facility] called ([phone]). I was directed to the patient's current trimming caser, Sandra, for an open investigation. Updated Sandra on the state of the patient on admission and present r/t wounds, nutrition, and overall wellbeing.
--- NOTE | 2022-05-16 21:19 | PC.NURSE ---
This patient, Jessica Ann, was transferred to [ 250] on 05/16/22 at 4076. Personal belongings sent with patient. Report given to [Truly]. @ 5940 Appropriate documentation sent with patient.
--- NOTE | 2022-05-17 05:02 | PC.NURSE ---
Pt received from IMU 213 via bed. Unresponsive. Eyes 2mm nonreactive 02 2L Agonal breathing. DL PICC line to R femoral clamped. Multiple soft foam drsg intact Santoro yellow urine. Droplet isolation
[2022-05-17 05:45] VITALS: BP 73/52; PULSE 82; RESP 12; TEMP 36.1; O2SAT 100
--- NOTE | 2022-05-17 08:04 | PC.NURSE ---
0600 Pt remains agonal breathing 8-10 respirations per minute. Nonresponsive. Nonreactive pupils. Turned and repositioned for comfort.
--- NOTE | 2022-05-17 10:24 | WPDGIPROGNO ---
Progress Note: A&P Assessment and Plan (1) Altered mental status: Code(s): R41.82 - Altered mental status, unspecified Status: Acute Assessment and Plan: Patient is very poorly responsive. Very frail in appearance. Not a candidate for an endoscopy. In fact I am not sure she would tolerate cleansing enemas. To relieve constipation would recommend soapsuds enemas but I am somewhat fearful that she would not tolerate this. Additionally for laxative she would require NG tube and may not tolerate placement of NG tube. NG tube was suggested yesterday but not accomplished. I understand family is considering limiting her code status. Will defer this to primary care service was in contact with. (2) Urinary tract infection: Code(s): N39.0 - Urinary tract infection, site not specified Status: Acute (3) Multiple sclerosis: Code(s): G35 - Multiple sclerosis Status: Acute (4) Dementia, unspecified, with behavioral disturbance: Code(s): F03.91 - Unspecified dementia, unspecified severity, with behavioral disturbance Status: Acute (5) Constipation by delayed colonic transit: Code(s): K59.01 - Slow transit constipation Status: Acute (6) Decubitus ulcer: Qualifiers: Pressure injury location: buttock Pressure injury stage: unspecified pressure injury stage Laterality: unspecified laterality Qualified Code(s): L89.309 - Pressure ulcer of unspecified buttock, unspecified stage Code(s): L89.90 - Pressure ulcer of unspecified site, unspecified stage Status: Acute Subjective Date/time seen: 05/17/22 1 Patient remains very frail in appearance. She is nonverbal. She does move somewhat on verbal stimuli. Review of Systems Review of Systems: ROS unobtainable: Yes unobtainable due to medical condition Exam Narrative: physical exam reveals her to be nonverbal. Frail poorly responsive. HEENT exam reveals no icterus. Lungs are clear. Abdomen is soft and flat. Palpable stool is evident. Objective Data Vital Signs Vital Signs: Vital Signs - 24 hr 05/16/22 12:00 05/16/22 12:56 05/16/22 16:00 Temperature 95.3 F L Pulse Rate 76 89 Respiratory Rate 24 H 18 Blood Pressure 82/50 L 77/50 L Pulse Oximetry 93 97 05/16/22 20:39 05/16/22 21:30 05/17/22 05:45 Temperature 97.2 F L 97 F L Pulse Rate 80 85 82 Respiratory Rate 23 H 12 12 Blood Pressure 62/43 L 78/55 L 73/52 L Pulse Oximetry 98 98 100 Intake/Output Intake/Output: Intake & Output 05/14/22 05/15/22 05/16/22 05/17/22 23:59 23:59 23:59 23:59 Intake Total 3242 2450 1300 0 Output Total 470 425 825 75 Balance 2772 2025 475 -75 Meds/Results Medications: Active Medications Generic Name Dose Route Start Last Admin Trade Name Freq PRN Reason Stop Dose Admin Morphine Sulfate 4 mg 05/16/22 16:18 05/16/22 18:33 Morphine Sulfate (*Crx) 4 Mg/Ml Inj IV PUSH 4 mg Q1H PRN Administration Pain Rated 7-10 Radiology Results: ITS Impressions Chest X-Ray 05/13/22 12:08 Impression: 1: Right perihilar and left basilar airspace disease, compatible with pneumonia. Venous Doppler Study 05/13/22 15:01 IMPRESSION: 1: No lower extremity deep venous thrombosis. Head CT 05/13/22 18:05 IMPRESSION: 1. No acute intracranial abnormality. 2: Chronic age-related findings. Abdomen X-Ray 05/15/22 18:04 Impression: 1: Fecal impaction of the colon. Labs Labs: Laboratory Results - last 24 hr 05/13/22 05/16/22 05/16/22 06:48 12:53 13:05 Sodium 154 H POC Capillary Glucose 114 H Serum Osmolality 402 H 05/16/22 17:44 Sodium POC Capillary Glucose 124 H Serum Osmolality Amg Follow-up Billing Inpatient Follow-up [id number] [facility] Care Mod
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
[2022-05-17 14:33] VITALS: BP 66/47; PULSE 84; RESP 20; TEMP 36.2; O2SAT 98
[2022-05-17 20:00] VITALS: O2SAT 96
[2022-05-17 20:06] LABS: Osmolality, Urine 432 mOsm/kg (50-1200)
[2022-05-17 21:55] VITALS: BP 84/55; PULSE 85; RESP 16; TEMP 36.2; O2SAT 100
--- NOTE | 2022-05-18 00:32 | PC.NURSE ---
SPOKE W/ DAUGHTER, CHUY AND GIVEN AN UPDATE
[2022-05-18 05:08] VITALS: BP 90/54; PULSE 98; RESP 16; TEMP 36.5; O2SAT 96
--- NOTE | 2022-05-18 12:56 | PM.DDS ---
Discharge Summary Date and Time Date of : 05/18/22 Time of : 12:56 Probable Cause of Probable Cause of : multiple scleroses CVA dementia hypertension call with Summary Hospital Course: patient was admitted multiple medical problems due to IV antibiotics patient was positive COVID also had tract infection patient became unresponsive opted to go hospice patient's systolic pressure dropped to 70 /50 supportive morphine was used patient finally passed comfortably in a hospitalbed
== END 2022-05-18 11:57 | disposition expired | DRG 682 ==
LOC: ANHED 12:29 → ANHIMU 05-13 00:52 → ANH2MED 05-18 15:42 → ANHIMU 05-20 12:20
PROVIDERS: Internal Medicine; Internal Medicine Nephrology; Physician Assistant; Student in an Organized Health Care Education/Training Program; Admitting Provider Family Medicine; Emergency Provider Emergency Medicine; PCP Internal Medicine; Visit Provider Internal Medicine
DX: N17.9 Acute kidney failure, unspecified (principal); G93.41 Metabolic encephalopathy; U07.1 COVID-19; L89.154 Pressure ulcer of sacral region, stage 4; L89.223 Pressure ulcer of left hip, stage 3; L89.214 Pressure ulcer of right hip, stage 4; J96.01 Acute respiratory failure with hypoxia; E87.0 Hyperosmolality and hypernatremia; N39.0 Urinary tract infection, site not specified; E46 Unspecified protein-calorie malnutrition; Z68.1 Body mass index [BMI] 19.9 or less, adult; T76.01XA Adult neglect or abandonment, suspected, initial encounter; G35 Multiple sclerosis; I95.9 Hypotension, unspecified; E86.0 Dehydration; E87.8 Other disorders of electrolyte and fluid balance, not elsewhere classified; E78.5 Hyperlipidemia, unspecified; N31.9 Neuromuscular dysfunction of bladder, unspecified; L89.622 Pressure ulcer of left heel, stage 2; R91.1 Solitary pulmonary nodule; R00.1 Bradycardia, unspecified; D64.9 Anemia, unspecified; T68.XXXA Hypothermia, initial encounter; F03.90 Unspecified dementia, unspecified severity, without behavioral disturbance, psychotic disturbance, mood disturbance, and anxiety; M48.00 Spinal stenosis, site unspecified; K59.01 Slow transit constipation; Z51.5 Encounter for palliative care; Z86.718 Personal history of other venous thrombosis and embolism; Z86.73 Personal history of transient ischemic attack (TIA), and cerebral infarction without residual deficits; Z74.01 Bed confinement status
CPT/HCPCS: 36415; 36569; 70450; 71045; 74018; 80048; 80053; 81001; 82533; 82550; 82570; 82607; 82728; 82746; 82948; 83540; 83550; 83605; 83735; 83930; 83935; 84100; 84156; 84295; 84300; 84443; 85025; 85027; 85055; 85610; 85730; 86140; 87040; 87086; 87088; 87637; 92610; 93005; 93970; 96365; 99285; A9270; C1751; J0692; J0696; J1650; J2270; J2997; J3480; J7030; J7070; J7120